=== PATIENT | male | born 1965 | race Caucasian/White ===

== ENCOUNTER 2022-11-15 15:24 | Inpatient (IN) ==
[2022-11-15] MEDS ORDERED: SODIUM CHLORIDE 0.9% 1000ML 2,000 ML IV ONE (15:42)
--- NOTE | 2022-11-15 16:03 | Emergency Department Note ---
History of Present Illness General Chief complaint: Fall Stated complaint: FALL, TACHYCARDIA Time Seen by Provider: 11/15/22 15:34 History of Present Illness Provider complaint: Fall Onset (ago): hour(s) 1 57-year-old male presents emergency department for fall. Patient states he went to a local [employer] outside of [place] and brought some food and then was going to get into his truck when he felt his legs give out. Patient states he fell and hit his head. Patient denies any LOC. No blood thinners. Patient does report that he drinks alcohol regularly. Patient states he binge drinks on the weekend and his last drink was on Friday. He denies any chest pain or difficulty breathing. Home Medications Medication Instructions Recorded Confirmed Type No Known Home Medications 11/15/22 11/15/22 History Allergies Allergy/AdvReac Type Severity Reaction Status Date / Time No Known Allergies Allergy Unverified 11/15/22 15:49 Past Med/Surg History Medical History (Updated 11/15/22 @ 22:26 by Dash Avelar MD) Alcohol abuse with withdrawal HTN (hypertension) Mood altered No pertinent family history No pertinent past medical history Seizure Surgical History (Updated 11/15/22 @ 16:02 by Dash Avelar MD) No pertinent past surgical history Social History (Updated 11/15/22 @ 16:02 by Dash Avelar MD) Smoking Status: Never smoker Hx Alcohol Use: Yes Alcohol Intake Frequency: 2-3 x/Week Alcohol Intake Frequency Comment: Binge Drinker on the weekends Feels Safe at Home: Yes Physical Exam Vital Signs Vital Signs - 24 hr 11/15/22 15:51 11/15/22 15:25 11/15/22 15:25 Temperature 37.1 C Temperature Source Oral Pulse Rate 140 H 135 H 135 H Pulse Rate [Right Finger] Pulse Rate from SpO2 Sensor Pulse Rhythm Regular Regular Pulse Rhythm [Right Finger] Pulse Strength Normal Pulse Strength [Right Finger] Respiratory Rate 19 19 Respiratory Effort / Characteristics Non-Labored Spontaneous Respiratory Depth Normal Respiratory Pattern Regular Blood Pressure 138/106 H Blood Pressure [Left Arm] Blood Pressure Mean 116 Blood Pressure Mean [Left Arm] Blood Pressure Position Lying Pulse Oximetry 99 99 Oxygen Delivery Method Room Air Room Air Sepsis Recent Fever Within 48 Hours No Sepsis New/Unexplained Change in Mental Status No Sepsis Action Taken by Nursing No Action Required 11/15/22 15:25 11/15/22 15:42 11/15/22 16:38 Temperature Temperature Source Pulse Rate Pulse Rate [Right Finger] 135 H 131 H Pulse Rate from SpO2 Sensor Pulse Rhythm Pulse Rhythm [Right Finger] Regular Pulse Strength Pulse Strength [Right Finger] Normal Respiratory Rate 19 18 Respiratory Effort / Characteristics Non-Labored Spontaneous Respiratory Depth Normal Respiratory Pattern Regular Blood Pressure Blood Pressure [Left Arm] 138/106 H 145/99 H Blood Pressure Mean Blood Pressure Mean [Left Arm] 116 114 Blood Pressure Position Pulse Oximetry 99 99 96 Oxygen Delivery Method Room Air Room Air Sepsis Recent Fever Within 48 Hours Sepsis New/Unexplained Change in Mental Status Sepsis Action Taken by Nursing 11/15/22 15:31 11/15/22 15:31 11/15/22 15:40 Temperature Temperature Source Pulse Rate 139 H 143 H Pulse Rate [Right Finger] Pulse Rate from SpO2 Sensor 142 H Pulse Rhythm Pulse Rhythm [Right Finger] Pulse Strength Pulse Strength [Right Finger] Respiratory Rate 23 20 Respiratory Effort / Characteristics Respiratory Depth Respiratory Pattern Blood Pressure 138/106 H Blood Pressure [Left Arm] Blood Pressure Mean 114 Blood Pressure Mean [Left Arm] Blood Pressure Position Pulse Oximetry 90 Oxygen Delivery Method Sepsis Recent Fever Within 48 Hours Sepsis New/Unexplained Change in Mental Status Sepsis Action Taken by Nursing 11/15/22 15:50 11/15/22 16:00 11/15/22 16:00 Temperature Temperature Source Pulse Rate 140 H 136 H Pulse Rate [Right Finger] Pulse Rate from SpO2 Sensor 141 H 136 H Pulse Rhythm Pulse Rhythm [Right Finger] Pulse Strength Pulse Strength [Right Finger] Respiratory Rate 24 22 Respiratory Effort / Characteristics Respiratory Depth Respiratory Pattern Blood Pressure 139/99 Blood Pressure [Left Arm] Blood Pressure Mean 113 Blood Pressure Mean [Left Arm] Blood Pressure Position Pulse Oximetry 98 98 Oxygen Delivery Method Sepsis Recent Fever Within 48 Hours Sepsis New/Unexplained Change in Mental Status Sepsis Action Taken by Nursing 11/15/22 16:38 11/15/22 16:40 11/15/22 16:50 Temperature Temperature Source Pulse Rate 129 H 149 H 123 H Pulse Rate [Right Finger] Pulse Rate from SpO2 Sensor 127 H 132 H Pulse Rhythm Pulse Rhythm [Right Finger] Pulse Strength Pulse Strength [Right Finger] Respiratory Rate 17 15 22 Respiratory Effort / Characteristics Respiratory Depth Respiratory Pattern Blood Pressure Blood Pressure [Left Arm] Blood Pressure Mean Blood Pressure Mean [Left Arm] Blood Pressure Position Pulse Oximetry 99 97 Oxygen Delivery Method Sepsis Recent Fever Within 48 Hours Sepsis New/Unexplained Change in Mental Status Sepsis Action Taken by Nursing 11/15/22 16:55 11/15/22 16:55 11/15/22 17:00 Temperature Temperature Source Pulse Rate 129 H Pulse Rate [Right Finger] Pulse Rate from SpO2 Sensor 128 H Pulse Rhythm Pulse Rhythm [Right Finger] Pulse Strength Pulse Strength [Right Finger] Respiratory Rate 18 Respiratory Effort / Characteristics Respiratory Depth Respiratory Pattern Blood Pressure 136/110 H 147/84 H Blood Pressure [Left Arm] Blood Pressure Mean 112 98 Blood Pressure Mean [Left Arm] Blood Pressure Position Pulse Oximetry 96 Oxygen Delivery Method Sepsis Recent Fever Within 48 Hours Sepsis New/Unexplained Change in Mental Status Sepsis Action Taken by Nursing 11/15/22 17:00 11/15/22 17:10 11/15/22 17:15 Temperature Temperature Source Pulse Rate 132 H 131 H Pulse Rate [Right Finger] Pulse Rate from SpO2 Sensor 126 H 134 H Pulse Rhythm Pulse Rhythm [Right Finger] Pulse Strength Pulse Strength [Right Finger] Respiratory Rate 20 25 H Respiratory Effort / Characteristics Respiratory Depth Respiratory Pattern Blood Pressure 130/98 Blood Pressure [Left Arm] Blood Pressure Mean 110 Blood Pressure Mean [Left Arm] Blood Pressure Position Pulse Oximetry 92 81 L Oxygen Delivery Method Sepsis Recent Fever Within 48 Hours Sepsis New/Unexplained Change in Mental Status Sepsis Action Taken by Nursing 11/15/22 17:15 11/15/22 17:20 11/15/22 17:30 Temperature Temperature Source Pulse Rate 132 H 133 H Pulse Rate [Right Finger] Pulse Rate from SpO2 Sensor 132 H 133 H Pulse Rhythm Pulse Rhythm [Right Finger] Pulse Strength Pulse Strength [Right Finger] Respiratory Rate 25 H 25 H Respiratory Effort / Characteristics Respiratory Depth Respiratory Pattern Blood Pressure 105/79 Blood Pressure [Left Arm] Blood Pressure Mean 81 Blood Pressure Mean [Left Arm] Blood Pressure Position Pulse Oximetry 94 93 Oxygen Delivery Method Sepsis Recent Fever Within 48 Hours Sepsis New/Unexplained Change in Mental Status Sepsis Action Taken by Nursing 11/15/22 17:30 Temperature Temperature Source Pulse Rate 128 H Pulse Rate [Right Finger] Pulse Rate from SpO2 Sensor 132 H Pulse Rhythm Pulse Rhythm [Right Finger] Pulse Strength Pulse Strength [Right Finger] Respiratory Rate 19 Respiratory Effort / Characteristics Respiratory Depth Respiratory Pattern Blood Pressure Blood Pressure [Left Arm] Blood Pressure Mean Blood Pressure Mean [Left Arm] Blood Pressure Position Pulse Oximetry 94 Oxygen Delivery Method Sepsis Recent Fever Within 48 Hours Sepsis New/Unexplained Change in Mental Status Sepsis Action Taken by Nursing Physical Exam GENERAL: Disheveled. NECK: Normal range of motion. Neck supple. No JVD present. No spinous process tenderness present. CV: Tachycardic rate, regular rhythm, normal heart sounds and intact distal pulses. There is no peripheral edema. Palpable radial pulses bue. PULM/CHEST: Effort normal and breath sounds normal. No respiratory distress. No stridor. He has no wheezes. He has no rales. - Chest Wall: He exhibits no tenderness. No crepitus bilaterally. ABD: The abdomen is soft. There is no tenderness. NEURO: He is alert and oriented to person, place, and time. He has normal strength. No cranial nerve deficit or sensory deficit. SKIN: Dirty. Multiple abrasions over his extremities. Course Course 1534: The patient was evaluated in room C8. A complete history and physical exam was performed Cardiac monitoring: An order was placed for continuous cardiac monitoring. The monitor shows a rate of 130 with sinus tachycardia rhythm interpreted by me 1652: Called to bedside by nursing. Patient was having seizure. On my arrival the patient was seizing Ativan was ordered for the patient but before the Ativan was drawn off the patient started seizing. Ativan was still given to the patient as it is thought that his seizure is most likely due to alcohol wit hdrawal. CT of the head reviewed by me showed no ICH. 1730: No further seizures in the emergency department. Labs show leukocytosis of 13.87. Thought to be reactive. Patient's sodium 125. Potassium 3.4. Ammonia 94. AST 381. ALT 105. Alkaline phosphatase 135. High-sensitivity troponin 72.2. Direct bilirubin 0.6. CT of the head C-spine and facial bones show no acute traumatic injuries. Chest x-ray pelvis x-ray negative. Discussed case with [facility] hospitalist team Dr. Burch she recommends loading the patient with Keppra 1 g IV piggyback and she will evaluate the patient for adm ission for alcohol withdrawal and DTs. Administered Medications Discontinued Medications Gadobutrol (Gadobutrol 65ml Vial) 7 ml IV ONCE ONE Stop: 11/15/22 21:55 Last Admin: 11/15/22 21:55 Dose: 7 ml Documented By: ARMEN Sodium Chloride (Nss 1000ml) 2,000 mls @ 999 mls/hr IV .Q2H1M ONE Stop: 11/15/22 17:42 Last Infusion: 11/15/22 19:44 Dose: 0 mls/hr Documented By: Admin: 11/15/22 15:57 Dose: 999 mls/hr Documented By: LUPE Thiamine HCl 100 mg/ Folic (Acid 1 mg/ Sodium Chloride) 1,001.2 mls @ 500 mls/hr IV .Q2H1M STA; Protocol Stop: 11/15/22 18:45 Last Infusion: 11/15/22 19:44 Dose: 0 mls/hr Documented By: Admin: 11/15/22 17:29 Dose: 500 mls/hr Documented By: LUPE Levetiracetam 1,000 mg/ Sodium (Chloride) 110 mls @ 440 mls/hr IV NOW STA Stop: 11/15/22 17:42 Last Infusion: 11/15/22 19:44 Dose: 0 mls/hr Documented By: Admin: 11/15/22 18:33 Dose: 440 mls/hr Documented By: LUPE Lactulose (Lactulose Syrup 30 Gm/45 Ml Udp) 30 gm PO NOW STA Stop: 11/15/22 17:17 Last Admin: 11/15/22 20:03 Dose: 30 gm Documented By: MATTHIAS Lorazepam (Lorazepam 2 Mg/1 Ml Vial) 2 mg IV NOW STA Stop: 11/15/22 16:44 Last Admin: 11/15/22 16:59 Dose: Not Given Documented By: SPIKE Lorazepam (Lorazepam 2 Mg/1 Ml Vial) Confirm Administered Dose 2 mg .ROUTE .STK- MED ONE Stop: 11/15/22 16:45 Last Admin: 11/15/22 16:56 Dose: Not Given Documented By: SPIKE Lorazepam (Lorazepam 2 Mg/1 Ml Vial) 1 mg IV NOW STA Stop: 11/15/22 17:02 Last Admin: 11/15/22 16:47 Dose: 1 mg Documented By: SPIKE Multivitamins/Minerals (Cerovite Adv Formula Tab) 1 tab PO ONE STA Stop: 11/15/22 19:58 Last Admin: 11/15/22 20:03 Dose: 1 tab Documented By: MATTHIAS Critical Care Time Critical Care Time: Yes Total Critical Care Time: 52 I have personally spent greater than 52 minutes of critical care time in the direct management of this patient. This includes bedside care, interpretation of diagnostic studies, and testing, discussion with consultants, patient, and family members, and other required patient management activities. This 52 minutes is in excess of all separately billable procedures. Medical Decision Making Laboratory Data Attestation: I reviewed the patient's lab results. 11/15/22 15:57 11/15/22 15:57 Lab Results 11/15/22 11/15/22 11/15/22 Range/Units 15:57 15:57 15:57 WBC 13.87 H (4.8-10.8) K/ul RBC 4.40 L (4.70-6.10) M/uL Hgb 14.9 (14.0-18.0) g/dl POC Hgb (14.0-18.0) g/dl Hct 40.6 L (42.0-52.0) % POC Hct (42-52) % MCV 92.3 (80.0-100.0) fL MCH 33.9 (25.0-34.0) pg MCHC 36.7 H (32.0-36.0) g/dL RDW Std Deviation 42.1 (36.4-46.3) fL RDW Coeff of Mallory 12.3 (11.5-14.5) % Plt Count 168 (130-400) K/uL MPV 9.4 (9.4-12.4) fL Immature Gran % (Auto) 0.6 % Neut % (Auto) 84.8 % Lymph % (Auto) 4.5 % [place] % (Auto) 9.8 % Eos % (Auto) 0.1 % Baso % (Auto) 0.2 % Neut # (Auto) 11.75 H (1.40-6.50) K/uL Lymph # (Auto) 0.63 L (1.2-3.4) K/uL [place] # (Auto) 1.36 H (0.11-0.59) K/uL Eos # (Auto) 0.02 (0-0.50) K/uL Baso # (Auto) 0.03 (0-0.2) K/uL Immature Gran # (Auto) 0.08 (0.01-0.20) K/uL PT INR APTT PTT Ratio POC Sodium (135-144) mmol/L Sodium 125 L (136-145) mmol/L POC Potassium (3.3-5.0) mmol/L Potassium TNP POC Chloride (101-112) mmol/L Chloride 86 L (98-107) mmol/L Carbon Dioxide 22 (21-32) mmol/L POC Total CO2 (24-31) mmol/L Anion Gap 17 H (3-11) POC Anion Gap (16-25) mmol/L POC BUN (7-18) mg/dl BUN 10 (6-23) mg/dl Creatinine 0.98 (0.6-1.4) mg/dl POC Creatinine (0.6-1.3) mg/dl Est Cr Clr Drug Dosing 86.7 ml/min Est GFR ( Amer) 100.2 ml/min Est GFR (Non-Af Amer) 86.4 ml/min BUN/Creatinine Ratio 10.2 (10-20) Glucose 93 (70-99(Fasting)) mg/dl POC Glucose (other) (70-99) mg/dl Osmolality (280-300) mOsm/kg Calcium 8.6 (8.6-10.3) mg/dl POC Ioniz Calcium Kita (1.12-1.32) mmol/l Total Bilirubin 2.2 H (0.2-1.0) mg/dl Direct Bilirubin TNP AST TNP ALT 105 H (7-52) U/L Alkaline Phosphatase 135 H (34-104) U/L Ammonia TNP Troponin I High Sens 72.2 H* (0-20) pg/ml Total Protein 6.9 (6.0-8.3) gm/dl Albumin 3.7 (3.4-5.0) gm/dl Lipase 6 L (11-82) U/L Ethyl Alcohol mg/dL (<10.0) mg/dl SARS-CoV-2, RNA, NAAT (NEGATIVE) 11/15/22 11/15/22 11/15/22 Range/Units 15:57 15:57 15:59 WBC (4.8-10.8) K/ul RBC (4.70-6.10) M/uL Hgb (14.0-18.0) g/dl POC Hgb (14.0-18.0) g/dl Hct (42.0-52.0) % POC Hct (42-52) % MCV (80.0-100.0) fL MCH (25.0-34.0) pg MCHC (32.0-36.0) g/dL RDW Std Deviation (36.4-46.3) fL RDW Coeff of Mallory (11.5-14.5) % Plt Count (130-400) K/uL MPV (9.4-12.4) fL Immature Gran % (Auto) % Neut % (Auto) % Lymph % (Auto) % [place] % (Auto) % Eos % (Auto) % Baso % (Auto) % Neut # (Auto) (1.40-6.50) K/uL Lymph # (Auto) (1.2-3.4) K/uL [place] # (Auto) (0.11-0.59) K/uL Eos # (Auto) (0-0.50) K/uL Baso # (Auto) (0-0.2) K/uL Immature Gran # (Auto) (0.01-0.20) K/uL PT Cancelled INR Cancelled APTT Cancelled PTT Ratio Cancelled POC Sodium (135-144) mmol/L Sodium (136-145) mmol/L POC Potassium (3.3-5.0) mmol/L Potassium POC Chloride (101-112) mmol/L Chloride (98-107) mmol/L Carbon Dioxide (21-32) mmol/L POC Total CO2 (24-31) mmol/L Anion Gap (3-11) POC Anion Gap (16-25) mmol/L POC BUN (7-18) mg/dl BUN (6-23) mg/dl Creatinine (0.6-1.4) mg/dl POC Creatinine (0.6-1.3) mg/dl Est Cr Clr Drug Dosing ml/min Est GFR ( Amer) ml/min Est GFR (Non-Af Amer) ml/min BUN/Creatinine Ratio (10-20) Glucose (70-99(Fasting)) mg/dl POC Glucose (other) (70-99) mg/dl Osmolality 270 L (280-300) mOsm/kg Calcium (8.6-10.3) mg/dl POC Ioniz Calcium Kita (1.12-1.32) mmol/l Total Bilirubin (0.2-1.0) mg/dl Direct Bilirubin AST ALT (7-52) U/L Alkaline Phosphatase (34-104) U/L Ammonia Troponin I High Sens (0-20) pg/ml Total Protein (6.0-8.3) gm/dl Albumin (3.4-5.0) gm/dl Lipase (11-82) U/L Ethyl Alcohol mg/dL < 10.0 (<10.0) mg/dl SARS-CoV-2, RNA, NAAT (NEGATIVE) 11/15/22 11/15/22 11/15/22 Range/Units 16:51 16:51 16:58 WBC (4.8-10.8) K/ul RBC (4.70-6.10) M/uL Hgb (14.0-18.0) g/dl POC Hgb 15.0 (14.0-18.0) g/dl Hct (42.0-52.0) % POC Hct 44 (42-52) % MCV (80.0-100.0) fL MCH (25.0-34.0) pg MCHC (32.0-36.0) g/dL RDW Std Deviation (36.4-46.3) fL RDW Coeff of Mallory (11.5-14.5) % Plt Count (130-400) K/uL MPV (9.4-12.4) fL Immature Gran % (Auto) % Neut % (Auto) % Lymph % (Auto) % [place] % (Auto) % Eos % (Auto) % Baso % (Auto) % Neut # (Auto) (1.40-6.50) K/uL Lymph # (Auto) (1.2-3.4) K/uL [place] # (Auto) (0.11-0.59) K/uL Eos # (Auto) (0-0.50) K/uL Baso # (Auto) (0-0.2) K/uL Immature Gran # (Auto) (0.01-0.20) K/uL PT INR APTT PTT Ratio POC Sodium 125 L (135-144) mmol/L Sodium (136-145) mmol/L POC Potassium 3.3 (3.3-5.0) mmol/L Potassium 3.4 L POC Chloride 89 L (101-112) mmol/L Chloride (98-107) mmol/L Carbon Dioxide (21-32) mmol/L POC Total CO2 19 L (24-31) mmol/L Anion Gap (3-11) POC Anion Gap 21.0 (16-25) mmol/L POC BUN 7 (7-18) mg/dl BUN (6-23) mg/dl Creatinine (0.6-1.4) mg/dl POC Creatinine 0.7 (0.6-1.3) mg/dl Est Cr Clr Drug Dosing ml/min Est GFR ( Amer) ml/min Est GFR (Non-Af Amer) ml/min BUN/Creatinine Ratio (10-20) Glucose (70-99(Fasting)) mg/dl POC Glucose (other) 94 (70-99) mg/dl Osmolality (280-300) mOsm/kg Calcium (8.6-10.3) mg/dl POC Ioniz Calcium Kita 0.96 L (1.12-1.32) mmol/l Total Bilirubin (0.2-1.0) mg/dl Direct Bilirubin 0.6 H AST 381 H ALT (7-52) U/L Alkaline Phosphatase (34-104) U/L Ammonia 94.0 H Troponin I High Sens (0-20) pg/ml Total Protein (6.0-8.3) gm/dl Albumin (3.4-5.0) gm/dl Lipase (11-82) U/L Ethyl Alcohol mg/dL (<10.0) mg/dl SARS-CoV-2, RNA, NAAT (NEGATIVE) 11/15/22 Range/Units 17:35 WBC (4.8-10.8) K/ul RBC (4.70-6.10) M/uL Hgb (14.0-18.0) g/dl POC Hgb (14.0-18.0) g/dl Hct (42.0-52.0) % POC Hct (42-52) % MCV (80.0-100.0) fL MCH (25.0-34.0) pg MCHC (32.0-36.0) g/dL RDW Std Deviation (36.4-46.3) fL RDW Coeff of Mallory (11.5-14.5) % Plt Count (130-400) K/uL MPV (9.4-12.4) fL Immature Gran % (Auto) % Neut % (Auto) % Lymph % (Auto) % [place] % (Auto) % Eos % (Auto) % Baso % (Auto) % Neut # (Auto) (1.40-6.50) K/uL Lymph # (Auto) (1.2-3.4) K/uL [place] # (Auto) (0.11-0.59) K/uL Eos # (Auto) (0-0.50) K/uL Baso # (Auto) (0-0.2) K/uL Immature Gran # (Auto) (0.01-0.20) K/uL PT INR APTT PTT Ratio POC Sodium (135-144) mmol/L Sodium (136-145) mmol/L POC Potassium (3.3-5.0) mmol/L Potassium POC Chloride (101-112) mmol/L Chloride (98-107) mmol/L Carbon Dioxide (21-32) mmol/L POC Total CO2 (24-31) mmol/L Anion Gap (3-11) POC Anion Gap (16-25) mmol/L POC BUN (7-18) mg/dl BUN (6-23) mg/dl Creatinine (0.6-1.4) mg/dl POC Creatinine (0.6-1.3) mg/dl Est Cr Clr Drug Dosing ml/min Est GFR ( Amer) ml/min Est GFR (Non-Af Amer) ml/min BUN/Creatinine Ratio (10-20) Glucose (70-99(Fasting)) mg/dl POC Glucose (other) (70-99) mg/dl Osmolality (280-300) mOsm/kg Calcium (8.6-10.3) mg/dl POC Ioniz Calcium Kita (1.12-1.32) mmol/l Total Bilirubin (0.2-1.0) mg/dl Direct Bilirubin AST ALT (7-52) U/L Alkaline Phosphatase (34-104) U/L Ammonia Troponin I High Sens (0-20) pg/ml Total Protein (6.0-8.3) gm/dl Albumin (3.4-5.0) gm/dl Lipase (11-82) U/L Ethyl Alcohol mg/dL (<10.0) mg/dl SARS-CoV-2, RNA, NAAT NEGATIVE (NEGATIVE) Imaging Data Attestation: I personally reviewed and interpreted this imaging study as follows: My Impression: CT head: No ICH Radiologist's Impression: Head CT 11/15/22 15:42 CT OF THE HEAD WITHOUT CONTRAST CLINICAL HISTORY: Fall. COMPARISON STUDY: No previous studies for comparison. TECHNIQUE: Helical axial images of the head were obtained without IV contrast. Automated exposure control was utilized for the study. A dose lowering technique was utilized adhering to the principles of ALARA. FINDINGS: No acute intracranial hemorrhage, midline shift or mass effect is present. White matter hypodensities favor small vessel disease. The ventricular system is unremarkable. The basal cisterns are patent. No extra-axial collections are present. There are no findings to suggest acute dural sinus thrombosis or acute territorial infarct. There is no acute calvarial fracture. Trace fluid within the bilateral mastoid air cells. IMPRESSION: 1. No acute intracranial findings. 2. No acute calvarial fracture. ACT 112: Negative or not required by law. Electronically signed by: Norman Harris M.D. 11/15/2022 4:[address] 11/15/22 15:43 CT OF THE CERVICAL SPINE WITHOUT CONTRAST CLINICAL HISTORY: fall COMPARISON STUDY: No previous studies for comparison. TECHNIQUE: Helical axial images of the cervical spine were obtained without IV contrast. Sagittal and coronal reconstructions were viewed. Automated exposure control was utilized for the study. A dose lowering technique was utilized adhering to the principles of ALARA. FINDINGS: There is reversal of the cervical lordosis. Vertebral body heights are maintained. No acute cervical spine fracture or subluxation is present. There is no prevertebral edema. Facet joints are intact. Moderate multilevel degenerative disc disease and facet arthrosis is present. There is mild loss of height of the superior endplate of T1. No definite acute fracture is present. There is no paravertebral infiltration/edema. IMPRESSION: 1. No acute cervical spine fracture or subluxation. 2. Mild loss of height of the superior plate of T1. Although technically age indeterminate, this is likely chronic. ACT 112: Negative or not required by law. Electronically signed by: Norman Harris M.D. 11/15/2022 4:56 PM Chest X-Ray 11/15/22 15:43 XR chest 1V portable CLINICAL HISTORY: Fall. COMPARISON STUDY: No previous studies for comparison. FINDINGS: Lung volumes are normal. Lungs are clear. There is no pneumothorax or pleural effusion. Cardiac size is normal. Mediastinal contours are normal. There is no evidence for pulmonary edema. There are numerous old right rib fractures. There are several old left rib fractures. IMPRESSION: No acute cardiopulmonary findings. ACT 112: Negative or not required by law. Electronically signed by: Norman Harris M.D. 11/15/2022 4:[address] 11/15/22 15:[address] WITHOUT CONTRAST CLINICAL HISTORY: Fall. COMPARISON STUDY: None. TECHNIQUE: A maxillofacial CT was performed without IV contrast. Coronal and sagittal reformats were viewed. Automated exposure control was utilized for the study. A dose lowering technique was utilized adhering to the principles of ALARA. FINDINGS: Globes are intact. There is no retrobulbar hematoma. No acute facial bone fracture is identified. Orbital floors are intact. Alignment of the temporomandibular joints is anatomic. There are multiple periapical lucency/abscesses. No acute skull base fracture is present. Cervical spine CT will be reported separately IMPRESSION: No acute facial fracture. ACT 112: Negative or not required by law. Electronically signed by: Norman Harris M.D. 11/15/2022 4:50 PM Pelvis X-Ray 11/15/22 15:43 XR pelvis 1-2V routine CLINICAL HISTORY: Fall. COMPARISON: None FINDINGS: Sacroiliac joints and symphysis pubis are intact. No acute fracture is identified within the pelvis or hips. There is mild bilateral hip osteoarth ritis. IMPRESSION: No acute fracture within the pelvis or hips. ACT 112: Negative or not required by law. Electronically signed by: Norman Harris M.D. 11/15/2022 4:35 PM ECG Data Attestation: I personally reviewed and interpreted this ECG as follows: Indication: + tachycardia Rate (beats per minute): 130 Rhythm: + sinus tachycardia ECG Intervals/blocks: + Normal WA and + Normal QT-c ECG ST segments: + Normal ST segments Additional Comments: QRS 76 MDM Narrative 1534: The patient was evaluated in room C8. A complete history and physical exam was performed Cardiac monitoring: An order was placed for continuous cardiac monitoring. The monitor shows a rate of 130 with sinus tachycardia rhythm interpreted by me 1652: Called to bedside by nursing. Patient was having seizure. On my arrival the patient was seizing Ativan was ordered for the patient but before the Ativan was drawn off the patient started seizing. Ativan was still given to the patient as it is thought that his seizure is most likely due to alcohol withdrawal. CT of the head reviewed by me showed no ICH. 1730: No further seizures in the emergency department. Labs show leukocytosis of 13.87. Thought to be reactive. Patient's sodium 125. Potassium 3.4. Ammonia 94. AST 381. ALT 105. Alkaline phosphatase 135. High-sensitivity troponin 72.2. Direct bilirubin 0.6. CT of the head C-spine and facial bones show no acute traumatic injuries. Chest x-ray pelvis x-ray negative. Discussed case with [facility] hospitalist team Dr. Burch she recommends loading the patient with Keppra 1 g IV piggyback and she will evaluate the patient for admission for alcohol withdrawal and DTs. Impression & Plan Alcohol abuse with withdrawal, Seizure, Acute hyponatremia, Acute hepatic encephalopathy, Elevated troponin Discharge Plan Visit Data Chief Complaint: Fall Stated Complaint: FALL, TACHYCARDIA ED Provider: Dash Avelar Discharge Problem: Alcohol abuse with withdrawal, Seizure, Acute hyponatremia, Acute hepatic encephalopathy, Elevated troponin Patient Disposition: Admitted As Inpatient Discharge Instructions Interventions: ED Discharge Assessment Last Done: 11/15/22 20:52
[2022-11-15 16:20] LABS: Basophils # (auto) 0.03 K/uL (0-0.2); Basophils % (auto) 0.2 %; Eosinophils # (auto) 0.02 K/uL (0-0.50); Eosinophils % (auto) 0.1 %; Hematocrit (blood only) 40.6 % (42.0-52.0); Hemoglobin 14.9 g/dl (14.0-18.0); Immature Granulocytes # (auto) 0.08 K/uL (0.01-0.20); Immature Granulocytes % (auto) 0.6 %; Lymphocytes # (auto) 0.63 K/uL (1.2-3.4); Lymphocytes % (auto) 4.5 %; Mean Corpuscular Hemoglobin 33.9 pg (25.0-34.0); Mean Corpuscular Hgb Conc 36.7 g/dL (32.0-36.0); Mean Corpuscular Volume 92.3 fL (80.0-100.0); Mean Platelet Volume 9.4 fL (9.4-12.4); Monocytes # (auto) 1.36 K/uL (0.11-0.59); Monocytes % (auto) 9.8 %; Neutrophils # (auto) 11.75 K/uL (1.40-6.50); Neutrophils % (auto) 84.8 %; Platelet Count 168 K/uL (130-400); RDW Coefficient of Variation 12.3 % (11.5-14.5); RDW Standard Deviation 42.1 fL (36.4-46.3); White Blood Count 13.87 K/ul (4.8-10.8)
[2022-11-15 16:33] LABS: Albumin Level 3.7 gm/dl (3.4-5.0); Anion Gap 17 (3-11); Bilirubin,Total 2.2 mg/dl (0.2-1.0); Calcium 8.6 mg/dl (8.6-10.3); Carbon Dioxide 22 mmol/L (21-32); Chloride 86 mmol/L (98-107); Sodium 125 mmol/L (136-145)
[2022-11-15 16:36] LABS: Alanine Aminotransferase 105 U/L (7-52); Alkaline Phosphatase 135 U/L (34-104); BUN Creatinine Ratio 10.2 (10-20); Blood Urea Nitrogen 10 mg/dl (6-23); Creatinine Clr Calc Pharmacy 86.7 ml/min; Est GFR (African American) 100.2 ml/min; Est GFR (Non-African American) 86.4 ml/min; Glucose 93 mg/dl (70-99(Fasting)); Lipase 6 U/L (11-82); Total Protein 6.9 gm/dl (6.0-8.3)
--- NOTE | 2022-11-15 16:37 | XRay Report ---
XR pelvis 1-2V routine CLINICAL HISTORY: Fall. COMPARISON: None FINDINGS: Sacroiliac joints and symphysis pubis are intact. No acute fracture is identified within t he pelvis or hips. There is mild bilateral hip osteoarthritis. IMPRESSION: No acute fracture within the pelvis or hips. ACT 112: Negative or not required by law. Electronically signed by: Norman Harris M.D. 11/15/2022 4:35 PM
[2022-11-15 16:42] LABS: Troponin I High Sensitivity 72.2 pg/ml (0-20)
[2022-11-15] MEDS ORDERED: LORazepam 2 MG/1 ML VIAL IV STA ×2 (16:43→17:01)
[2022-11-15] MEDS ORDERED: LORazepam 2 MG/1 ML VIAL ONE (16:44)
[2022-11-15] MEDS ORDERED: CEROVITE ADV FORMULA TAB PO STA ×2 (16:45→19:57)
[2022-11-15] MEDS ORDERED: THIAMINE HCL 100 MG, FOLIC ACID 1 MG in SODIUM CHLORIDE 0.9% 1000ML 1,000 ML IV STA (16:45)
--- NOTE | 2022-11-15 16:47 | CT Scan Report ---
CT OF THE HEAD WITHOUT CONTRAST CLINICAL HISTORY: Fall. COMPARISON STUDY: No previous studies for comparison. TECHNIQUE: Helical axial images of the head were obtained without IV contrast. Automated exposure con trol was utilized for the study. A dose lowering technique was utilized adhering to the principles o f ALARA. FINDINGS: No acute intracranial hemorrhage, midline shift or mass effect is present. White matter hyp odensities favor small vessel disease. The ventricular system is unremarkable. The basal cisterns are patent. No extra-axial collections are present. There are no findings to suggest acute dural sinus t hrombosis or acute territorial infarct. There is no acute calvarial fracture. Trace fluid within the bilateral mastoid air cells. IMPRESSION: 1. No acute intracranial findings. 2. No acute calvarial fracture. ACT 112: Negative or not required by law. Electronically signed by: Norman Harris M.D. 11/15/2022 4:46 PM
--- NOTE | 2022-11-15 16:48 | XRay Report ---
XR chest 1V portable CLINICAL HISTORY: Fall. COMPARISON STUDY: No previous studies for comparison. FINDINGS: Lung volumes are normal. Lungs are clear. There is no pneumothorax or pleural effusion. Car diac size is normal. Mediastinal contours are normal. There is no evidence for pulmonary edema. There are numerous old right rib fractures. There are several old left rib fractures. IMPRESSION: No acute cardiopulmonary findings. ACT 112: Negative or not required by law. Electronically signed by: Norman Harris M.D. 11/15/2022 4:47 PM
--- NOTE | 2022-11-15 16:52 | CT Scan Report ---
MAXILLOFACIAL CT WITHOUT CONTRAST CLINICAL HISTORY: Fall. COMPARISON STUDY: None. TECHNIQUE: A maxillofacial CT was performed without IV contrast. Coronal and sagittal reformats were viewed. Automated exposure control was utilized for the study. A dose lowering technique was utiliz ed adhering to the principles of ALARA. FINDINGS: Globes are intact. There is no retrobulbar hematoma. No acute facial bone fracture is ident ified. Orbital floors are intact. Alignment of the temporomandibular joints is anatomic. There are mu ltiple periapical lucency/abscesses. No acute skull base fracture is present. Cervical spine CT will be reported separately IMPRESSION: No acute facial fracture. ACT 112: Negative or not required by law. Electronically signed by: Norman Harris M.D. 11/15/2022 4:50 PM
--- NOTE | 2022-11-15 16:58 | CT Scan Report ---
CT OF THE CERVICAL SPINE WITHOUT CONTRAST CLINICAL HISTORY: fall COMPARISON STUDY: No previous studies for comparison. TECHNIQUE: Helical axial images of the cervical spine were obtained without IV contrast. Sagittal a nd coronal reconstructions were viewed. Automated exposure control was utilized for the study. A do se lowering technique was utilized adhering to the principles of ALARA. FINDINGS: There is reversal of the cervical lordosis. Vertebral body heights are maintained. No acute cervical spine fracture or subluxation is present. There is no prevertebral edema. Facet joints are intact. Moderate multilevel degenerative disc disease and facet arthrosis is present. There is mild loss of height of the superior endplate of T1. No definite acute fracture is present. There is no par avertebral infiltration/edema. IMPRESSION: 1. No acute cervical spine fracture or subluxation. 2. Mild loss of height of the superior plate of T1. Although technically age indeterminate, this is l ikely chronic. ACT 112: Negative or not required by law. Electronically signed by: Norman Harris M.D. 11/15/2022 4:56 PM
[2022-11-15 17:11] LABS: iSTAT Creatinine 0.7 mg/dl (0.6-1.3); iSTAT Ionized Calcium 0.96 mmol/l (1.12-1.32); iSTAT Potassium 3.3 mmol/L (3.3-5.0)
[2022-11-15] MEDS ORDERED: LACTULOSE SYRUP 30 GM/45 ML UDP PO STA (17:16)
[2022-11-15 17:28] LABS: Bilirubin Direct 0.6 mg/dl (0-0.2); Potassium 3.4 mmol/L (3.5-5.1)
[2022-11-15] MEDS ORDERED: levETIRAcetam 1,000 MG in 0.9 % SODIUM CHLORIDE 100 ML IV STA (17:28)
[2022-11-15] MEDS ORDERED: ONDANSETRON INJ 2 MG/ML 2 ML VIAL IV PRN (17:38)
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
[2022-11-15 19:01] LABS: Appearance Urine Cloudy (Clear); Bacteria Urine Automated Negative (Negative); Bilirubin Urine Negative (Negative); Blood Urine 3+ (Negative); Color Urine Orange; Epithelial Cell Urine Auto >30 /lpf (0-5); Glucose Urine UA Negative (Negative); Ketones Urine Trace (Negative); Leukocyte Esterase Urine Negative (Negative); Nitrite Urine Negative (Negative); Protein Urine 2+ (Negative); Specific Gravity Urine 1.018 (1.000-1.030); Urobilinogen Urine Negative (Negative); pH Urine 6.5 (4.5-7.5)
[2022-11-15 19:25] LABS: Amorphous Sediment Urine Present (None Prsent); Amphetamines+Metham, Urine Neg (Neg); Barbiturates, Urine Neg (Neg); Benzodiazepine, Urine Neg (Neg); Cocaine, Urine Neg (Neg); MDMA (Ecstacy), Urine Neg (Neg); Methadone, Urine Neg (Neg); Mucus Urine Present (None Prsent); Opiate, Urine Neg (Neg); Phencyclidine, Urine Neg (Neg)
[2022-11-15 19:26] LABS: Creatinine Urine Random 87.5 mg/dl
[2022-11-15 20:03] LABS: INR 1.2 (0.9-1.1); Partial Thromboplastin Ratio 1.1; Prothrombin Time 12.9 Seconds (9.0-12.0)
[2022-11-15] MEDS ORDERED: POTASSIUM CHLORIDE CRTAB 20 MEQ TABCR PO STA (20:39)
[2022-11-15 21:16] LABS: BUN Creatinine Ratio 11.8 (10-20); Calcium 7.8 mg/dl (8.6-10.3); Creatinine Clr Calc Pharmacy 111.8 ml/min; Est GFR (Non-African American) 102.7 ml/min; Magnesium 1.5 mg/dl (1.7-2.4); Phosphorus 3.1 mg/dl (2.5-4.9); Potassium 3.7 mmol/L (3.5-5.1)
[2022-11-15] MEDS ORDERED: GADOBUTROL 65ML VIAL IV ONE (21:54)
--- NOTE | 2022-11-15 23:40 | Magnetic Resonance Report ---
Exam(s): MRI HEAD W/WO Contrast IV Amt: 7mL Gadavist EXAM: MR Head Without and With Intravenous Contrast CLINICAL HISTORY: Seizures. TECHNIQUE: Magnetic resonance images of the head/brain without and with intravenous contrast in multiple planes. CONTRAST: Patient received 7mL Gadavist of IV contrast COMPARISON: CT head 11/15/2022 FINDINGS: Brain: No acute infarct. No intracranial hemorrhage, mass-effect or midline shift. Mild periventricular white matter T2/flair signal abnormalities are most consistent with chronic microangiopathy. No abnormal enhancement. Ventricles: Unremarkable. No ventriculomegaly. Bones/joints: Unremarkable. Sinuses: Unremarkable as visualized. No acute sinusitis. Mastoid air cells: Unremarkable as visualized. No mastoid effusion. Orbits: Unremarkable as visualized. IMPRESSION: No acute findings in the head/brain. Electronically signed by: Belen Pat MD 11/15/22 23:39 PM
[2022-11-15] MEDS ORDERED: GABAPENTIN 600 MG TAB PO ONE (23:46)
[2022-11-15] MEDS ORDERED: Ativan IV Alcohol Withdrawal--Active Protocol IV PRN (23:46)
[2022-11-15] MEDS ORDERED: LORazepam 2 MG/1 ML VIAL IV PRN (23:46)
[2022-11-15] MEDS ORDERED: GABAPENTIN 1200MG ALCOHOL WITHDRAWAL LOAD PO STA (23:46)
[2022-11-15] MEDS: SODIUM CHLORIDE 0.9% 1000ML 1,000 ML IV SCH (23:49)
[2022-11-16] MEDS: MAGNESIUM SULFATE / D5W 1 GM/100 ML BAG IV SCH ×2 (00:03→02:19)
[2022-11-16] MEDS: CYANOCOBALAMIN 1000 MCG/ML VIAL IM SCH (00:30)
[2022-11-16] MEDS: NICOTINE 21 MG/24 HR TDSY TD SCH (00:49)
[2022-11-16] MEDS ORDERED: Ativan IV Alcohol Withdrawal--Active Protocol IV PRN (01:02)
[2022-11-16] MEDS ORDERED: LORazepam 2 MG/1 ML VIAL IV PRN ×3 (01:02)
[2022-11-16] MEDS: POTASSIUM CHLORIDE / WTR 10 MEQ/100 ML PLCT IV SCH ×3 (02:19→05:00)
[2022-11-16 04:37] LABS: Hematocrit (blood only) 34.2 % (42.0-52.0); Hemoglobin 12.7 g/dl (14.0-18.0); Mean Corpuscular Hemoglobin 34.6 pg (25.0-34.0); Mean Corpuscular Hgb Conc 37.1 g/dL (32.0-36.0); Mean Corpuscular Volume 93.2 fL (80.0-100.0); Mean Platelet Volume 9.7 fL (9.4-12.4); Platelet Count 119 K/uL (130-400); RDW Coefficient of Variation 12.5 % (11.5-14.5); Red Blood Count 3.67 M/uL (4.70-6.10); White Blood Count 8.84 K/ul (4.8-10.8)
[2022-11-16 04:43] LABS: Albumin Globulin Ratio 1.1 (0.9-2); Albumin Level 2.9 gm/dl (3.4-5.0); BUN Creatinine Ratio 9.6 (10-20); Bilirubin,Total 1.6 mg/dl (0.2-1.0); Calcium 7.6 mg/dl (8.6-10.3); Creatinine Clr Calc Pharmacy 97.6 ml/min; Est GFR (African American) 114.8 ml/min; Est GFR (Non-African American) 99.1 ml/min; Globulin 2.6 gm/dl (2.5-4.0); Magnesium 2.3 mg/dl (1.7-2.4); Phosphorus 3.8 mg/dl (2.5-4.9); Potassium 3.3 mmol/L (3.5-5.1); Total Protein 5.5 gm/dl (6.0-8.3)
[2022-11-16] MEDS: levETIRAcetam 1,000 MG in 0.9 % SODIUM CHLORIDE 100 ML IV SCH ×2 (06:53→18:11)
[2022-11-16] MEDS: GABAPENTIN 600 MG TAB PO SCH ×3 (06:54→20:05)
--- NOTE | 2022-11-16 07:59 | Ultrasound Report ---
ULTRASOUND RIGHT UPPER QUADRANT ABDOMEN CLINICAL HISTORY: Elevated hepatic transaminases. COMPARISON STUDY: No priors. TECHNIQUE: Portable real-time grayscale and color flow sonography of the right upper quadrant of the abdomen was performed. Images are reviewed in the transverse and longitudinal planes. FINDINGS: Liver: The liver is top normal in size and demonstrates heterogeneously increased echotexture indicat ing steatosis. There is no intrahepatic biliary ductal dilatation. The main portal vein is patent. Gallbladder: There are shadowing gallstones and biliary sludge. The gallbladder is otherwise normal a s imaged. There is no gallbladder wall thickening or pericholecystic fluid. A sonographic Emmanuel's si gn is reportedly absent. The common bile duct measures up to 0.6 cm in diameter. Pancreas: Not visualized due to overlying bowel gas. Right kidney: Survey images of the right kidney demonstrate normal size and echotexture. There is no hydronephrosis. Ascites: None. IMPRESSION: 1. Hepatic steatosis. 2. Gallstones and biliary sludge with no sonographic evidence of acute cholecystitis. ACT 112: Negative or not required by law. Electronically signed by: Tyler Dover M.D. 11/16/2022 7:57 AM
[2022-11-16] MEDS ORDERED: POTASSIUM CHLORIDE CRTAB 20 MEQ TABCR PO STA (09:14)
[2022-11-16] MEDS: SODIUM CHLORIDE 0.9% 1000ML 1,000 ML IV SCH (09:30)
[2022-11-16] MEDS: THIAMINE HCL 100 MG TAB PO SCH (09:31)
[2022-11-16] MEDS: FOLIC ACID 1 MG TAB PO SCH (09:31)
--- NOTE | 2022-11-16 09:47 | Hospitalist Progress Note ---
Date of Service November 16, 2022 Assessment & Plan (1) Alcohol abuse with withdrawal: (2) Seizure: (3) HTN (hypertension): (4) Mood altered: Plan 57 year old admitted in alcohol withdrawal, with syncopal/seizure episodes and concerning anisocoria. Delirium Tremens: Alcohol Abuse: Hyponatremia AWSS protocol Banana bag Hyponatremia possibly due to "beer potomania"- osmolality suggests a hypotonic hyponatremia, euvolemic. SIADH also on differential, TSH pending UDS- normal Continue with fluid restriction at this time. Consider nephrology referral if hyponatremia persistent. Ammonia level currently normal Addiction Medicine assistance to help with discontinuing alcohol use recommended upon discharge Seizures: Anisocoria: Suspect related to alcohol use, due to anisocoria; r/o cerebral or ocular lesions L >R Head CT , Cervical spine CT, CXR, face CT, pelvic x-ray negative Brain MRI unremarkable, EEG pending Neuro consulted- noted aniscoria could be post-ictal finding, recommending CTA head and neck, ordered. HTN: Not on any current medications Troponin 72.2; trended down, ischemic demand Echo noted concentric changes, dilated aortic root (mild) Outpt follow up recommended. Depressed Mood: Disheveled appearance. Reports last shower 3-4 weeks ago. Variable mood swings at home per sister Depression and anxiety symptoms Visual hallucinations per conversation with sister Psych consult: stated pt downplaying symptoms, declined their services. Disposition: PCP: Dr. Malcolm Code Status: Full Code VTE Prophylaxis: Heparin SQ Next of Kin: SisterAlma [phone] Admission and Anticipated Discharge Date Admission Date: November 15, 2022 Subjective Pt seen this AM. Sister present at the bedside was engaged in conversation with someone else. States that he is feeling better, denies any discomfort. Has been having eye discharge with conjunctival injection. Review of Systems Review of Systems: All systems reviewed & are unremarkable except as noted in Subjective Physical Exam Physical Exam: General: Alert, oriented. No acute distress Psych: Subdued mood and affect Neuro: difficulty with movement HEENT: NC/AT, anisocia noted, eyes with discharge, conjunctival injection CV: RRR, Normal s1, s2. No murmurs appreciated Resp: Breath sounds clear bilaterally, no increased effort of breathing. Abdomen: Soft, nontender, nondistended. Extremities: No edema in lower extremities bilaterally. Results & Data Results & Data Vital Signs (Past 12 Hours) Vital Signs Temp Pulse Pulse Resp BP BP Pulse Ox 11/16/22 08:00 91 H 18 124/76 100 11/16/22 07:44 100 H 19 123/86 98 11/16/22 08:00 37.1 C 11/16/22 06:00 100 H 17 100 11/16/22 06:00 89/73 L 11/16/22 05:50 95 H 23 11/16/22 05:40 97 H 16 11/16/22 00:00 11/15/22 23:27 113 H 11/16/22 04:00 36.9 C 103 H 17 127/90 99 11/16/22 00:00 37.9 C H 113 H 18 98 11/16/22 05:30 95 H 20 11/16/22 05:29 96 H 21 11/16/22 05:29 127/90 11/16/22 05:20 91 H 17 91 11/16/22 05:10 91 H 17 11/16/22 05:00 103 H 21 95 11/16/22 04:50 102 H 17 100 11/16/22 04:40 101 H 18 100 11/16/22 04:30 102 H 19 100 11/16/22 04:20 102 H 17 100 11/16/22 04:10 99 H 18 100 11/16/22 04:00 101 H 18 98 11/16/22 03:50 98 H 18 100 11/16/22 03:40 95 H 20 98 11/16/22 03:30 110 H 21 100 11/16/22 03:20 104 H 17 98 11/16/22 03:10 101 H 18 99 11/16/22 03:00 101 H 17 99 11/16/22 02:50 105 H 16 99 11/16/22 02:40 106 H 16 99 11/16/22 02:30 109 H 16 98 11/16/22 02:20 109 H 17 99 11/16/22 02:10 111 H 17 97 11/16/22 02:00 107 H 17 99 11/16/22 02:00 107/79 11/16/22 01:50 103 H 18 99 11/16/22 01:40 112 H 12 97 11/16/22 01:30 106 H 18 100 11/16/22 01:20 105 H 19 100 11/16/22 01:10 114 H 21 94 11/16/22 01:02 113 H 21 100 11/16/22 01:02 133/98 11/16/22 01:00 123 H 17 78 L 11/16/22 01:00 151/110 H 11/16/22 00:50 113 H 19 93 11/16/22 00:40 130 H 19 83 L 11/16/22 00:30 118 H 20 99 11/16/22 00:20 122 H 23 99 11/16/22 00:10 119 H 18 100 11/16/22 00:00 112 H 18 99 11/16/22 00:00 130/92 11/15/22 23:50 117 H 18 100 11/15/22 23:40 117 H 20 98 11/15/22 23:34 118 H 25 H 100 11/15/22 23:34 127/91 11/15/22 23:30 116 H 18 92 11/15/22 23:20 114 H 30 H 78 L 11/15/22 23:10 120 H 24 100 11/15/22 23:00 125 H 22 99 11/15/22 23:00 117/74 11/15/22 23:23 37.3 C 135 H 18 123/99 96 O2 Del Method O2 Flow Rate 11/16/22 08:00 Nasal Cannula 2 11/16/22 07:44 Nasal Cannula 2 11/16/22 08:00 11/16/22 06:00 11/16/22 06:00 11/16/22 05:50 11/16/22 05:40 11/16/22 00:00 Room Air 11/15/22 23:27 11/16/22 04:00 Room Air 11/16/22 00:00 Room Air 11/16/22 05:30 11/16/22 05:29 11/16/22 05:29 11/16/22 05:20 11/16/22 05:10 11/16/22 05:00 11/16/22 04:50 11/16/22 04:40 11/16/22 04:30 11/16/22 04:20 11/16/22 04:10 11/16/22 04:00 11/16/22 03:50 11/16/22 03:40 11/16/22 03:30 11/16/22 03:20 11/16/22 03:10 11/16/22 03:00 11/16/22 02:50 11/16/22 02:40 11/16/22 02:30 11/16/22 02:20 11/16/22 02:10 11/16/22 02:00 11/16/22 02:00 11/16/22 01:50 11/16/22 01:40 11/16/22 01:30 11/16/22 01:20 11/16/22 01:10 11/16/22 01:02 11/16/22 01:02 11/16/22 01:00 11/16/22 01:00 11/16/22 00:50 11/16/22 00:40 11/16/22 00:30 11/16/22 00:20 11/16/22 00:10 11/16/22 00:00 11/16/22 00:00 11/15/22 23:50 11/15/22 23:40 11/15/22 23:34 11/15/22 23:34 11/15/22 23:30 11/15/22 23:20 11/15/22 23:10 11/15/22 23:00 11/15/22 23:00 11/15/22 23:23 Room Air
[2022-11-16] MEDS: TRIMETHOPRIM/POLYMYXIN B OP SCH ×4 (10:24→23:32)
--- NOTE | 2022-11-16 10:25 | Communication Note ---
Date of Service: November 16, 2022 consult received. patient was cooperative with nursing assessment last night, no knight since withdrawal managed, likely better functioning in conversation when not postictal. Screened negative for depression and SI. No psych hx. Minimizing alcohol use compared to that reported by sister. He declined involvement of behavioral health. Notified Dr. Cunningham that will cancel formal consult but remain available should acute needs arise as alcohol withdrawal/seizure most likely cause of initial presentation. No acute agitation/indication for 302 warrant for an exam.
--- NOTE | 2022-11-16 11:34 | Neurology Consultation ---
Date of Consultation November 16, 2022 Assessment & Plan (1) Alcohol abuse with withdrawal: (2) Seizure: A 57 yo M with history of alcohol abuse admitted with alcohol withdrawl and provoked or alcohol withdrawal seizure. Last drink reported to be roughly 1 week ago with tachycardia and increased tremulousness and visual hallucinations. Consider standard 6-day ativan taper for alcohol withdrawal as inpatient. Counselled on alcohol abstinence. Agree with routine EEG which can be done on Friday or as outpatient. I would not recommend starting anti-epileptic medication. In regards to the aniscoria this can be seen postically after a seizure or from trauma. Would recommend CTA head and neck to exclude PCOM aneursym or carotid dissection. MRI brain reviewed and reassuring - chronic changes with no evidence of midline shift or acute intracranial abnormality. Would continue electrolyte replacement including B12 , folic acid, and Vit B1. I would recommend checking a Vit b6 as this can be associated wiht Neuropathy. 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 I will follow up the results of the CTA head and neck otherwise Neuro will sign off for now. History of Present Illness Reason for Consultation: New onset seizure Attending Physician: Klarissa Cunningham MD History of Present Illness A 57 yo Male with history of alchol abuse (~ 18 beers per day) admitted from home yesterday with fall and witnessed seizure. His sister is bedside. He lives alone. He remembers falling. Denies history of seizure or childhoood epilepsy. He has numbness in his feet which he reports he has had for years. He also has shoulder problem and following with ortho in [place]. He reports feeling ok this morning. He is other tsai a poor historian. His last drink was reported to be about a week ago and he had noted increased tremors and visual hallucinations. He works for [employer] He was noted to have aniscoria on arrival and Neuro consulted. He under MRI and liver US. He was given ativan in the ER and banna bag. Allergies Allergy/AdvReac Type Severity Reaction Status Date / Time No Known Allergies Allergy Unverified 11/15/22 15:49 Home Medications Medication Instructions Recorded Confirmed Type No Known Home Medications 11/15/22 11/15/22 History Patient History Medical History (Updated 11/15/22 @ 22:26 by Dash Avelar MD) Alcohol abuse with withdrawal HTN (hypertension) Mood altered No pertinent family history No pertinent past medical history Seizure Surgical History (Updated 11/15/22 @ 16:02 by Dash Avelar MD) No pertinent past surgical history Social History (Updated 11/15/22 @ 16:02 by Dash Avelar MD) Smoking Status: Never smoker Do You Dip or Chew Tobacco: No; Hx Alcohol Use: Yes Alcohol type: beer Alcohol Intake Frequency: 2-3 x/Week Alcohol Intake Frequency Comment: Binge Drinker on the weekends Hx Substance Use: No Preferred Language: Tunisian Communication Ability: Effective Manager Industrial Required: No Beliefs That Will Affect Care: None Current Living Situation: Alone Current Living Situation Comment: home alone Other Information That Helps Us Care for You: No Feels Safe at Home: Yes Safety Concerns: Feels Safe At This Time Assistive Devices: None Results & Data Vital Signs (Past 12 Hours) Vital Signs Temp Pulse Pulse Resp BP BP Pulse Ox 11/16/22 08:00 95 H 11/16/22 10:00 98 H 16 127/89 100 11/16/22 09:00 99 H 15 109/82 98 11/16/22 08:00 11/16/22 08:00 91 H 18 124/76 100 11/16/22 07:44 100 H 19 123/86 98 11/16/22 08:00 37.1 C 11/16/22 06:00 100 H 17 100 11/16/22 06:00 89/73 L 11/16/22 05:50 95 H 23 11/16/22 05:40 97 H 16 11/16/22 00:00 11/16/22 04:00 36.9 C 103 H 17 127/90 99 11/16/22 00:00 37.9 C H 113 H 18 98 11/16/22 05:30 95 H 20 11/16/22 05:29 96 H 21 11/16/22 05:29 127/90 11/16/22 05:20 91 H 17 91 11/16/22 05:10 91 H 17 11/16/22 05:00 103 H 21 95 11/16/22 04:50 102 H 17 100 11/16/22 04:40 101 H 18 100 11/16/22 04:30 102 H 19 100 11/16/22 04:20 102 H 17 100 11/16/22 04:10 99 H 18 100 11/16/22 04:00 101 H 18 98 11/16/22 03:50 98 H 18 100 11/16/22 03:40 95 H 20 98 11/16/22 03:30 110 H 21 100 11/16/22 03:20 104 H 17 98 11/16/22 03:10 101 H 18 99 11/16/22 03:00 101 H 17 99 11/16/22 02:50 105 H 16 99 11/16/22 02:40 106 H 16 99 11/16/22 02:30 109 H 16 98 11/16/22 02:20 109 H 17 99 11/16/22 02:10 111 H 17 97 11/16/22 02:00 107 H 17 99 11/16/22 02:00 107/79 11/16/22 01:50 103 H 18 99 11/16/22 01:40 112 H 12 97 11/16/22 01:30 106 H 18 100 11/16/22 01:20 105 H 19 100 11/16/22 01:10 114 H 21 94 11/16/22 01:02 113 H 21 100 11/16/22 01:02 133/98 11/16/22 01:00 123 H 17 78 L 11/16/22 01:00 151/110 H 11/16/22 00:50 113 H 19 93 11/16/22 00:40 130 H 19 83 L 11/16/22 00:30 118 H 20 99 11/16/22 00:20 122 H 23 99 11/16/22 00:10 119 H 18 100 11/16/22 00:00 112 H 18 99 11/16/22 00:00 130/92 11/15/22 23:50 117 H 18 100 11/15/22 23:40 117 H 20 98 O2 Del Method O2 Flow Rate 11/16/22 08:00 11/16/22 10:00 Nasal Cannula 2 11/16/22 09:00 Nasal Cannula 2 11/16/22 08:00 Nasal Cannula 2 11/16/22 08:00 Nasal Cannula 2 11/16/22 07:44 Nasal Cannula 2 11/16/22 08:00 11/16/22 06:00 11/16/22 06:00 11/16/22 05:50 11/16/22 05:40 11/16/22 00:00 Room Air 06/17/23 04:00 Room Air 11/16/22 00:00 Room Air 11/16/22 05:30 11/16/22 05:29 11/16/22 05:29 11/16/22 05:20 11/16/22 05:10 11/16/22 05:00 11/16/22 04:50 11/16/22 04:40 11/16/22 04:30 11/16/22 04:20 11/16/22 04:10 11/16/22 04:00 11/16/22 03:50 11/16/22 03:40 11/16/22 03:30 11/16/22 03:20 11/16/22 03:10 11/16/22 03:00 11/16/22 02:50 11/16/22 02:40 11/16/22 02:30 11/16/22 02:20 11/16/22 02:10 11/16/22 02:00 11/16/22 02:00 11/16/22 01:50 11/16/22 01:40 11/16/22 01:30 11/16/22 01:20 11/16/22 01:10 11/16/22 01:02 11/16/22 01:02 11/16/22 01:00 11/16/22 01:00 11/16/22 00:50 11/16/22 00:40 11/16/22 00:30 11/16/22 00:20 11/16/22 00:10 11/16/22 00:00 11/16/22 00:00 11/15/22 23:50 11/15/22 23:40 Laboratory Results Pottassium 3.3 Mag Low Na 125 Liver enzymes elevated Ammonia Elevated Diagnostic Findings MRI good reviewed. Chronic micorvascular ischemic changes and volume loss. No evidence of acute stroke or hemorrhage. Motion artifact.
--- NOTE | 2022-11-16 13:13 | Electrocardiogram Report ---
Test Reason : Blood Pressure : / mmHG Vent. Rate : 130 BPM Atrial Rate : 130 BPM P-R Int : 150 ms QRS Dur : 076 ms QT Int : 304 ms P-R-T Axes : 070 072 062 degrees QTc Int : 447 ms Sinus tachycardia Possible Left atrial enlargement Poor R wave progression, consider anterior [place] vs. lead placement vs. LVH Abnormal ECG No previous ECGs available Confirmed by Piter Mcelroy ([id number]) on 11/16/2022 1:13:08 PM Referred By: REFERRED SELF Confirmed By:Piter Mcelroy
[2022-11-16] MEDS ORDERED: OPTIRAY 320 125ml IV ONE (13:25)
--- NOTE | 2022-11-16 16:03 | CT Scan Report ---
CT ANGIOGRAM OF THE BRAIN COMBO; CT ANGIOGRAM OF THE NECK CLINICAL HISTORY: Alcohol withdrawal. Anisocoria. COMPARISON STUDY: CT and MRI of the brain dictated 11/15/2022. TECHNIQUE: Unenhanced axial CT scan of the brain is performed. Subsequently, following the IV adminis tration of 120 of Optiray 320, CT angiogram of the head and neck was performed from the aortic arch t o the vertex. Images are reviewed in the axial, sagittal, and coronal planes. 3-D MIPS images are cre ated and assessed. IV contrast was administered without complication. All measurements were calculate d based on NASCET criteria. A dose lowering technique was utilized adhering to the principles of ALA RA. CT DOSE: 995.74 mGy.cm FINDINGS: Brain parenchyma: There is age advanced involutional change noting moderate subcortical and periventr icular microangiopathic disease. There is no hemorrhage, mass effect, or evidence of acute territoria l ischemia by CT criteria. There is no evidence of enhancing mass lesion on the angiogram phase image s. The ventricles, sulci, and cisterns are prominent secondary to involutional change. Gill-white mat ter differentiation is preserved. No extra-axial fluid collection is seen. Thoracic aorta: Visualized portions of the thoracic aorta are normal in caliber. The aortic arch demo nstrates standard 3-vessel anatomy. Right carotid arterial system: The right common carotid artery is widely patent, as are the right int ernal and external carotid arteries. Mild calcified plaque is noted in the carotid bulb. Left carotid arterial system: The left common carotid artery is widely patent, as are the left regulatory affairs intern al and external carotid arteries. Mild atherosclerotic plaque is noted in the ICA. Vertebral arteries: The vertebral arteries are widely patent bilaterally noting right-sided dominance . Subclavian arteries: Widely patent bilaterally. Intracranial vasculature: There is atherosclerotic calcification of the cavernous carotid and vertebr al arteries. The internal carotid arteries are patent at the skull base, as are the anterior and midd le cerebral arteries bilaterally. The vertebrobasilar system and posterior cerebral arteries are wide ly patent. There is mild dolichoectasia of the basilar artery. The right vertebral artery is dominant . There is no aneurysm, high-grade stenosis, or focal vessel cut off seen throughout the intracranial circulation. Jugular veins: Patent bilaterally. Dural sinuses: Patent. Lung apices: Partially visualized upper lobe lung parenchyma appears clear. Soft tissues: The visualized pharyngeal soft tissues are normal in appearance noting angiographic pha se technique. The oropharyngeal airway appears widely patent. The salivary and thyroid glands are nor mal in appearance. No cervical lymphadenopathy is seen. Skeletal structures: The skeletal structures are osteopenic. The calvarium appears intact. The cervic al spine is maintained noting multilevel spondylosis. No lytic or blastic lesion is seen. Orbits: The bony orbits are intact. Orbital contents are normal as visualized. Sinuses and mastoids: The paranasal sinuses are clear. There are small left and trace right mastoid e ffusions. Cerumen is noted within the external auditory canals. IMPRESSION: 1. There is no hemorrhage, mass effect, or evidence of acute territorial ischemia by CT criteria. 2. Unremarkable CT angiogram of the brain. 3. Unremarkable CT angiogram of the neck. ACT 112: Negative or not required by law. Electronically signed by: Tyler Dover M.D. 11/16/2022 4:01 PM
[2022-11-17] MEDS: CYANOCOBALAMIN 1000 MCG/ML VIAL IM SCH ×2 (01:05→23:17)
[2022-11-17] MEDS: TRIMETHOPRIM/POLYMYXIN B OP SCH ×6 (03:28→21:55)
[2022-11-17] MEDS: GABAPENTIN 600 MG TAB PO SCH ×3 (04:11→23:18)
[2022-11-17] MEDS: NICOTINE 21 MG/24 HR TDSY TD SCH ×2 (06:11→23:17)
[2022-11-17] MEDS: levETIRAcetam 1,000 MG in 0.9 % SODIUM CHLORIDE 100 ML IV SCH ×2 (06:28→17:00)
[2022-11-17 07:18] LABS: Thyroid Stimulating Hormone 4.857 uIu/ml (0.300-4.500)
[2022-11-17] MEDS: FOLIC ACID 1 MG TAB PO SCH (07:41)
[2022-11-17 07:49] LABS: Basophils # (auto) 0.03 K/uL (0-0.2); Basophils % (auto) 0.5 %; Eosinophils # (auto) 0.06 K/uL (0-0.50); Hematocrit (blood only) 30.6 % (42.0-52.0); Hemoglobin 11.2 g/dl (14.0-18.0); Immature Granulocytes # (auto) 0.02 K/uL (0.01-0.20); Immature Granulocytes % (auto) 0.3 %; Lymphocytes % (auto) 20.8 %; Mean Corpuscular Hemoglobin 34.3 pg (25.0-34.0); Mean Corpuscular Hgb Conc 36.6 g/dL (32.0-36.0); Mean Corpuscular Volume 93.6 fL (80.0-100.0); Mean Platelet Volume 9.5 fL (9.4-12.4); Monocytes # (auto) 0.52 K/uL (0.11-0.59); Neutrophils # (auto) 3.95 K/uL (1.40-6.50); Neutrophils % (auto) 68.4 %; Platelet Count 128 K/uL (130-400); RDW Coefficient of Variation 12.6 % (11.5-14.5); RDW Standard Deviation 43.6 fL (36.4-46.3); Red Blood Count 3.27 M/uL (4.70-6.10); White Blood Count 5.78 K/ul (4.8-10.8)
[2022-11-17 07:54] LABS: T4 Free Thyroxine 0.9 ng/dl (0.61-1.60)
[2022-11-17 08:06] LABS: Albumin Level 2.6 gm/dl (3.4-5.0); BUN Creatinine Ratio 9.6 (10-20); Bilirubin,Total 0.9 mg/dl (0.2-1.0); Creatinine Clr Calc Pharmacy 116.6 ml/min; Est GFR (Non-African American) 104.4 ml/min; Globulin 2.6 gm/dl (2.5-4.0); Potassium 3.7 mmol/L (3.5-5.1); Total Protein 5.2 gm/dl (6.0-8.3)
[2022-11-17] MEDS: THIAMINE HCL 100 MG TAB PO SCH (09:29)
--- NOTE | 2022-11-17 20:54 | Hospitalist Progress Note ---
Date of Service November 17, 2022 Assessment & Plan (1) Alcohol abuse with withdrawal: (2) Seizure: (3) HTN (hypertension): (4) Mood altered: Plan 57 year old admitted in alcohol withdrawal, with syncopal/seizure episodes and concerning anisocoria. Delirium Tremens: Alcohol Abuse: Hyponatremia AWSS protocol Banana bag Hyponatremia possibly due to "beer potomania"- osmolality suggests a hypotonic hyponatremia, euvolemic. SIADH also on differential TSH with free T4 suggests a subclinical hypothyroidism- noted that TSH can be elevated during acute body stressors. UDS- normal Continue with fluid restriction at this time. Hyponatremia improving. Consider nephrology referral if hyponatremia persistent. Ammonia level currently normal Addiction Medicine assistance to help with discontinuing alcohol use recommended upon discharge Seizures: Anisocoria: Suspect related to alcohol use, due to anisocoria; r/o cerebral or ocular lesions L >R, improving Head CT , Cervical spine CT, CXR, face CT, pelvic x-ray negative Brain MRI unremarkable, EEG pending Neuro consulted- noted anisocoria could be post-ictal finding, recommending CTA head and neck, unremarkable. HTN/elevated troponins: Not on any current medications Troponin 72.2; trended down, ischemic demand Echo noted concentric changes, dilated aortic root (mild) Outpt follow up recommended. Depressed Mood: Due to appearance, mood, hallucinations Psych consult: stated pt downplaying symptoms, declined their services. Disposition: PCP: Dr. Malcolm Code Status: Full Code VTE Prophylaxis: Heparin SQ Diet: regular Next of Kin: SisterAlma [phone] Admission and Anticipated Discharge Date Admission Date: November 15, 2022 Subjective Pt seen this AM. States that he has numbness in his lower extremities, has been there chronically. Unsure if his eye infection is improving. Review of Systems Review of Systems: All systems reviewed & are unremarkable except as noted in Subjective Physical Exam Physical Exam: General: Alert, oriented. No acute distress Psych: Subdued mood and affect Neuro: difficulty with movement HEENT: NC/AT, anisocoria improved, eyes with discharge, conjunctival injection CV: RRR Resp: Breath sounds clear bilaterally, no increased effort of breathing. Abdomen: Soft, nontender, nondistended. Extremities: No edema in lower extremities bilaterally. Results & Data Results & Data Vital Signs (Past 12 Hours) Vital Signs Temp Pulse Resp BP BP Pulse Ox O2 Del Method 11/17/22 19:55 37.1 C 99 H 18 135/86 96 Room Air 11/17/22 16:00 36.5 C 88 18 121/61 97 Room Air
[2022-11-18] MEDS: TRIMETHOPRIM/POLYMYXIN B OP SCH ×6 (01:57→22:13)
[2022-11-18] MEDS ORDERED: POTASSIUM CHLORIDE CRTAB 20 MEQ TABCR PO STA ×2 (04:32→07:08)
[2022-11-18] MEDS ORDERED: NSS + 20MEQ KCL 20 MEQ/1,000 ML BAG IV ONE (04:41)
[2022-11-18] MEDS: levETIRAcetam 1,000 MG in 0.9 % SODIUM CHLORIDE 100 ML IV SCH ×2 (05:30→18:32)
[2022-11-18 06:33] LABS: BUN Creatinine Ratio 8.8 (10-20); Basophils # (auto) 0.02 K/uL (0-0.2); Basophils % (auto) 0.5 %; Calcium 7.9 mg/dl (8.6-10.3); Creatinine Clr Calc Pharmacy 106.4 ml/min; Eosinophils # (auto) 0.08 K/uL (0-0.50); Eosinophils % (auto) 1.8 %; Est GFR (African American) 116.6 ml/min; Est GFR (Non-African American) 100.6 ml/min; Hematocrit (blood only) 29.8 % (42.0-52.0); Hemoglobin 10.6 g/dl (14.0-18.0); Immature Granulocytes # (auto) 0.02 K/uL (0.01-0.20); Immature Granulocytes % (auto) 0.5 %; Lymphocytes # (auto) 1.14 K/uL (1.2-3.4); Lymphocytes % (auto) 26.1 %; Magnesium 1.9 mg/dl (1.7-2.4); Mean Corpuscular Hemoglobin 34.3 pg (25.0-34.0); Mean Corpuscular Hgb Conc 35.6 g/dL (32.0-36.0); Mean Corpuscular Volume 96.4 fL (80.0-100.0); Mean Platelet Volume 9.1 fL (9.4-12.4); Monocytes # (auto) 0.51 K/uL (0.11-0.59); Monocytes % (auto) 11.7 %; Neutrophils # (auto) 2.59 K/uL (1.40-6.50); Neutrophils % (auto) 59.4 %; Platelet Count 129 K/uL (130-400); Potassium 3.1 mmol/L (3.5-5.1); RDW Coefficient of Variation 12.5 % (11.5-14.5); Red Blood Count 3.09 M/uL (4.70-6.10); White Blood Count 4.36 K/ul (4.8-10.8)
--- NOTE | 2022-11-18 06:34 | Communication Note ---
Date of Service: November 18, 2022 4:30 AM PSVT on the monitor as per RN, heart rate 160s lasting less than a minute. Patient asymptomatic during episode as per RN. AP PSVT check electrolytes and supplement K and mag as needed Cardiology consult
[2022-11-18] MEDS ORDERED: MAGNESIUM SULFATE / D5W 1 GM/100 ML BAG IV ONE (07:09)
[2022-11-18] MEDS: FOLIC ACID 1 MG TAB PO SCH (08:13)
[2022-11-18] MEDS: THIAMINE HCL 100 MG TAB PO SCH (08:13)
[2022-11-18] MEDS ORDERED: POTASSIUM CHLORIDE CRTAB 20 MEQ TABCR PO SCH (09:15)
--- NOTE | 2022-11-18 09:42 | Cardiology Consultation ---
Date of Consultation November 18, 2022 Assessment & Plan (1) Alcohol abuse with withdrawal: (2) Seizure: (3) Acute hyponatremia: (4) Wide-complex tachycardia: (5) Elevated troponin: (6) Aortic regurgitation: (7) Aortic root enlargement: (8) LVH (left ventricular hypertrophy): (9) HTN (hypertension): Plan Supplement potassium. Maintain normokalemia and normomagnesemia. Add beta-kandice therapy, metoprolol succinate 25 mg/day Electrocardiogram in AM Outpatient stress testing Risk factor and lifestyle modification. Supervising Physician Co-Signing Physician Notes Patient seen examined the bedside. Denies chest pain or palpitations. Admits to daily alcohol use prior to admission. Denies any palpitations, lightheadedness, or dizziness since admission. No orthopnea, PND, or lower extremity edema. PE: VSS. Gen: Unkempt, awake alert and oriented x3. Heart: Regular rhythm, normal S1-S2. No murmur. Lungs: Clear bilateral, no rales, rhonchi, wheeze. Extremities: No edema. A/P: Agree with above PA-C history, physical exam, assessment and plan. Telemetry reviewed demonstrating nonsustained ventricular tachycardia without associated symptoms. Preserved LV systolic function per echocardiogram. Agree with addition of beta-kandice therapy and electrolyte replacement. Nocturnal pulse oximetry to assessment to exclude sleep apnea. History of Present Illness Reason for Consultation: PSVT Requesting Physician: King Attending Physician: Jami History of Present Illness Mr. Leonardo Harley is a 57 year old male who was admitted to [facility] after presenting to the ER via EMS on November 15, 2022 following a fall at the [facility] outside of [place]. Seizure observed in the ER. Daily ETOH consumption reported with delirium tremens with mood instability and visual hallucinations observed. At 04:18 AM on 11/18/2022 the patient was observed to have a 38 beat of wide complex tachycardia. Patient asymptomatic. Laboratory work revealed hypokalemia with a potassium of 3.1 mmol/L. Magnesium was normal 1.9 mg/dL. 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 No significant bradycardia. No atrial fibrillation or flutter. High-sensitivity troponin was checked on the date of admission, November 15, 2022 x 2 and was mildly elevated at 72.2 pg/mL then 67.7 pg/mL. Resting echocardiography on November 16, 2022 demonstrated the following: Normal LV systolic function. Ejection fraction 65 to 70%. Mild concentric left ventricular hypertrophy. Focal thickening of the basal septum with no evidence of left ventricular outflow obstruction. Grade 1 diastolic dysfunction. Mild aortic regurgitation. Mild aortic root dilatation. Patient specifically denies palpitations, chest pain, shortness of breath, orthopnea, PND, edema, dizziness, syncope, fevers, or rigors. 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 He notes stubbing his left 5th toe with result injury to the nail. + Falls. Past Medical and Surgical History: Chronic alcohol use/abuse Hypertension Dyslipidemia Lumbosacral degenerative disc disease Spondylolisthesis and right shoulder dislocation Right sided rib fractures in 2017 Family History: Unknown to the patient. Chart review reveals a history of breast cancer in mother and hypertension in father. Social History: Smoker, cigarettes, since his teenage years. Reformed smokeless tobacco user. Alcohol: 6 beers per day with significantly higher intake on the weekends. Employed by [employer] Allergies Allergy/AdvReac Type Severity Reaction Status Date / Time No Known Allergies Allergy Unverified 11/15/22 15:49 Home Medications Medication Instructions Recorded Confirmed Type No Known Home Medications 11/15/22 11/15/22 History Patient History Medical History Alcohol abuse with withdrawal HTN (hypertension) Mood altered No pertinent family history No pertinent past medical history Seizure Surgical History No pertinent past surgical history Social History Smoking Status: Never smoker Do You Dip or Chew Tobacco: No; Hx Alcohol Use: Yes Alcohol type: beer Alcohol Intake Frequency: 2-3 x/Week Alcohol Intake Frequency Comment: Binge Drinker on the weekends Hx Substance Use: No Preferred Language: French Communication Ability: Effective Fur Sewer Required: No Beliefs That Will Affect Care: None Current Living Situation: Alone Current Living Situation Comment: home alone Other Information That Helps Us Care for You: No Feels Safe at Home: Yes Safety Concerns: Feels Safe At This Time Assistive Devices: None Review of Systems Review of Systems: Complete Review of Systems: Constitutional: No fevers or rigos. HEENT: No amaurosis fugax. Hard of hearing. Pulmonary: No history of asthma. No history of COPD. No history of sleep apnea. No history of pulmonary embolism. Cardiac: No prior cardiac history. GI/Abd: No dysphagia. No melana or hematochezia. Denies kidney problems. Vascular: Denies history of carotid disease, AAA, or lower extremity claudication Hematologic: No coagulation disorder. Musculoskeletal: Chronic back pain. Bilateral shoulder pain. Neurologic: + Seizure. No history of TIA or CVA Endocrine: Denies DM or thyroid problems. Complete Review of Systems is as stated above, negative, or noncontributory. Physical Exam Physical Exam: General: Alert and oriented to person and place. NAD. HENT: Normocephalic. Atraumatic. Unequal pupils. Neck: No carotid bruits. No JVD. No HJR. Heart: Irregular with occasional ectopy. Grade II/ systolic murmur. No diastolic murmur. No rub. PMI is nondisplaced. Lungs: Clear to auscultation anteriorly. No wheeze. Abdomen: +BS. Soft. Nontender. No masses or organomegaly. Extremities: Multiple excoriations and ecchymoses in various stages of healing. No clubbing. No cyanosis. No edema. Pulses: radial=2/4, posterior tibial=2/4. Results & Data Vital Signs (Past 12 Hours) Vital Signs Temp Pulse Pulse Resp BP BP Pulse Ox 11/18/22 07:37 37.6 C H 87 18 139/88 95 11/18/22 07:21 89 11/18/22 03:00 37.0 C 81 16 132/85 99 11/18/22 00:04 87 11/17/22 23:00 37.1 C 90 18 162/104 H 158/100 H 98 O2 Del Method 11/18/22 07:37 Room Air 11/18/22 07:21 11/18/22 03:00 Room Air 11/18/22 00:04 11/17/22 23:00 Room Air Laboratory Results CBC 11/18/22 Range/Units 05:26 WBC 4.36 L (4.8-10.8) K/ul RBC 3.09 L (4.70-6.10) M/uL Hgb 10.6 L (14.0-18.0) g/dl Hct 29.8 L (42.0-52.0) % Plt Count 129 L (130-400) K/uL Neut # (Auto) 2.59 (1.40-6.50) K/uL Lymph # (Auto) 1.14 L (1.2-3.4) K/uL [place] # (Auto) 0.51 (0.11-0.59) K/uL Eos # (Auto) 0.08 (0-0.50) K/uL Baso # (Auto) 0.02 (0-0.2) K/uL Comprehensive Metabolic Panel 11/18/22 Range/Units 05:26 Sodium 133 L (136-145) mmol/L Potassium 3.1 L (3.5-5.1) mmol/L Chloride 103 (98-107) mmol/L Carbon Dioxide 24 (21-32) mmol/L BUN 7 (6-23) mg/dl Creatinine 0.80 (0.6-1.4) mg/dl Glucose 124 H (70-99(Fasting)) mg/dl Calcium 7.9 L (8.6-10.3) mg/dl Intake and Output 11/17/22 11/18/22 11/18/22 22:59 06:59 14:59 Intake Total 350 / 960 110 / 960 Output Total 850 / 2101 600 / 2101 Balance -500 / -1141 -490 / -1141 Intake: IV 110 / 220 110 / 220 levETIRAcetam 1,000 mg In 0.9 % 110 / 220 110 / 220 Sodium Chloride 100 ml @ 440 mls/hr IV Q12H [facility] Rx#:[id number] Oral 240 / 740 Output: Urine 850 / 1850 600 / 1850 Other: Weight 73.2 kg Weight Measurement Method Built in [facility]
[2022-11-18] MEDS ORDERED: METOPROLOL SUCC 25MG EXT REL TAB PO SCH (10:15)
[2022-11-18] MEDS: GABAPENTIN 600 MG TAB PO SCH (12:51)
[2022-11-18 14:25] LABS: BUN Creatinine Ratio 7.1 (10-20); Calcium 7.8 mg/dl (8.6-10.3); Creatinine Clr Calc Pharmacy 76.5 ml/min; Est GFR (African American) 84.3 ml/min; Est GFR (Non-African American) 72.8 ml/min; Potassium 4.2 mmol/L (3.5-5.1)
--- NOTE | 2022-11-18 14:42 | Hospitalist Progress Note ---
Date of Service November 18, 2022 Assessment & Plan (1) Alcohol abuse with withdrawal: (2) Seizure: (3) HTN (hypertension): (4) Mood altered: Plan 57 year old admitted in alcohol withdrawal, with syncopal/seizure episodes and concerning anisocoria. Delirium Tremens: Alcohol Abuse: Hypotonic hyponatremia secondary to above Alcohol associated neuropathy Continue alcohol withdrawal protocol-gabapentin, thiamine, folic acid Received Banana bag TSH within fairly normal limits Normal free T4 Monitor sodium levels: Improved to 134 Ammonia level normal Patient refused psychiatry evaluation Continue thiamine, folic acid PT OT as able EMG as outpatient Check vitamin B6 levels Wide-complex tachycardia Hypokalemia, hypomagnesemia Needs outpatient stress test Appreciate cardiology input Risk factor, lifestyle modification Appreciate cardiology input Continue metoprolol 25 mg daily Replete electrolytes as needed Nocturnal oximetry study pending Hepatic steatosis Transaminitis --Liver USD:Hepatic steatosis. Gallstones and biliary sludge with no sonographic evidence of acute cholecystitis. Sepsis in setting of alcohol use LFTs trending down Monitor Seizures: Anisocoria: Suspect related to alcohol use/Seizure --Head/Neck CTA:There is no hemorrhage, mass effect, or evidence of acute territorial ischemia by CT criteria. Unremarkable CT angiogram of the brain. Unremarkable CT angiogram of the neck. --MRI Brain:No acute findings in the head/brain. 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 DVT Px: Heparin SQ Code Status: Full Code Admission and Anticipated Discharge Date Admission Date: November 15, 2022 Subjective Patient is seen and examined at bedside States having back pain chronically, associated with lower extremity numbness Noted to have VT overnight, asymptomatic Denies any chest pain, dyspnea, dizziness, nausea, abdominal pain No other complaints Review of Systems Review of Systems: All systems reviewed & are unremarkable except as noted in Subjective Physical Exam Physical Exam: Physical Exam: Vitals signs as noted above General Appearance:Moderately built and nourished, no apparent distress, Chronic ill appearing Head: normocephalic, Atraumatic Eyes: normal inspection, EOMI Neck: supple, Trachea midline Respiratory/Chest: Normal breath sounds, CTA, No accessory muscle use Cardiovascular: S1, S2, No murmur Abdomen/GI:Soft, Non tender, Bowel sounds present Extremities/Musculoskeletal:normal inspection, no edema, LUE bruises Neurologic/Psych:AAOX3, grossly no focal neurological deficits Skin: normal color, warm Results & Data Results & Data Vital Signs (Past 12 Hours) Vital Signs Temp Pulse Pulse Resp BP BP Pulse Ox 11/18/22 11:28 36.9 C 84 18 134/85 99 11/18/22 07:37 37.6 C H 87 18 139/88 95 11/18/22 07:21 89 11/18/22 03:00 37.0 C 81 16 132/85 99 O2 Del Method 11/18/22 11:28 Room Air 11/18/22 07:37 Room Air 11/18/22 07:21 11/18/22 03:00 Room Air Laboratory Results Short CBC 11/18/22 Range/Units 05:26 WBC 4.36 L (4.8-10.8) K/ul Hgb 10.6 L (14.0-18.0) g/dl Hct 29.8 L (42.0-52.0) % Plt Count 129 L (130-400) K/uL BMP 11/18/22 11/18/22 05:26 13:54 Sodium 133 L 134 L Potassium 3.1 L 4.2 D Chloride 103 105 Carbon Dioxide 24 25 BUN 7 8 Creatinine 0.80 1.13 D Glucose 124 H 118 H Calcium 7.9 L 7.8 L
[2022-11-18] MEDS ORDERED: POTASSIUM CHLORIDE CRTAB 20 MEQ TABCR PO ONE (16:00)
[2022-11-18] MEDS: HEPARIN SOD 5,000 UNIT/0.5 ML VIAL SQ SCH (20:45)
--- NOTE | 2022-11-18 22:07 | Electroencephalogram ---
EEG Procedure Note Date of Service November 18, 2022 Start / End Times Start Time: 10:33 End Time: 10:53 Referring Physician Belen Cisse History A 57 year old male with alchol withdrawal seizure. EEG performed for evaluaiton of epileptiform activity. Home Medication List Medication Instructions Recorded Confirmed Type No Known Home Medications 11/15/22 11/15/22 History Inpatient Medication List Cyanocobalamin (Cyanocobalamin 1000 Mcg/Ml Vial) 1,000 mcg IM Q24H [facility] Stop: 11/20/22 00:01 Last Admin: 11/17/22 23:17 Dose: 1,000 mcg Documented By: Admin: 11/17/22 01:05 Dose: 1,000 mcg Documented By: Admin: 11/16/22 00:30 Dose: 1,000 mcg Documented By: BLAISE Folic Acid (Folic Acid 1 Mg Tab) 1 mg PO QAM [facility] Stop: 12/16/22 08:59 Last Admin: 11/18/22 08:13 Dose: 1 mg Documented By: Admin: 11/17/22 07:41 Dose: 1 mg Documented By: Admin: 11/16/22 09:31 Dose: 1 mg Documented By: JULISSA Heparin Sodium (Porcine) (Heparin Sod 5,000 Unit/0.5 Ml Vial) 5,000 units SQ Q12 [facility] Stop: 12/18/22 20:59 Last Admin: 11/18/22 20:45 Dose: 5,000 units Documented By: CRYSTAL Levetiracetam 1,000 mg/ Sodium (Chloride) 110 mls @ 440 mls/hr IV Q12H [facility] Stop: 12/16/22 06:29 Last Infusion: 11/18/22 19:18 Dose: 0 mls/hr Documented By: Admin: 11/18/22 18:32 Dose: 200 mls/hr Documented By: Infusion: 11/18/22 05:48 Dose: 0 mls/hr Documented By: Admin: 11/18/22 05:30 Dose: 440 mls/hr Documented By: Infusion: 11/17/22 18:44 Dose: 0 mls/hr Documented By: Admin: 11/17/22 17:00 Dose: 440 mls/hr Documented By: Infusion: 11/17/22 06:58 Dose: 0 mls/hr Documented By: Admin: 11/17/22 06:28 Dose: 440 mls/hr Documented By: Infusion: 11/16/22 20:01 Dose: 0 mls/hr Documented By: Admin: 11/16/22 18:11 Dose: 440 mls/hr Documented By: Infusion: 11/16/22 07:21 Dose: 0 mls/hr Documented By: Admin: 11/16/22 06:53 Dose: 440 mls/hr Documented By: BLAISE Potassium Chloride/Sodium Chloride (Normal Saline W/20 Meq Kcl) 20 meq in 1,000 mls @ 50 mls/hr IV .Q20H ONE; Protocol Stop: 11/19/22 00:40 Last Admin: 11/18/22 05:00 Dose: 50 mls/hr Documented By: CRYSTAL Lorazepam (Lorazepam 2 Mg/1 Ml Vial) 2 mg IV UD PRN; Protocol PRN Reason: EtOH Withdrawal AWSS Score 8,9 Stop: 12/16/22 01:01 Last Admin: 11/16/22 01:35 Dose: 2 mg Documented By: BLAISE Metoprolol Succinate (Metoprolol Succ 25mg Ext Rel Tab) 25 mg PO QAM [facility] Stop: 12/18/22 10:14 Last Admin: 11/18/22 12:52 Dose: 25 mg Documented By: GEORGINA Miscellaneous (Remove Nicoderm Patch) 1 each N/A DAILY@0859 [facility] Stop: 12/16/22 08:58 Last Admin: 11/18/22 08:12 Dose: 1 each Documented By: Admin: 11/17/22 07:43 Dose: Not Given Documented By: Admin: 11/16/22 08:50 Dose: Not Given Documented By: JULISSA Nicotine (Nicotine 21 Mg/24 Hr Tdsy) 21 mg TD Q24H [facility] Stop: 12/16/22 00:00 Last Admin: 11/17/22 23:17 Dose: 21 mg Documented By: Admin: 11/17/22 06:11 Dose: 21 mg Documented By: Admin: 11/16/22 00:49 Dose: Not Given Documented By: BLAISE Polymyxin/Trimethoprim Sulfate (Trimethoprim/Polymyxin B) 1 drops OP Q4H [facility] Stop: 12/16/22 10:14 Last Admin: 11/18/22 17:30 Dose: Not Given Documented By: Admin: 11/18/22 16:07 Dose: Not Given Documented By: Admin: 11/18/22 12:52 Dose: 1 drops Documented By: Admin: 11/18/22 05:24 Dose: 1 drops Documented By: Admin: 11/18/22 01:57 Dose: 1 drops Documented By: Admin: 11/17/22 21:55 Dose: 1 drops Documented By: Admin: 11/17/22 17:01 Dose: 1 drops Documented By: Admin: 11/17/22 15:05 Dose: 1 drops Documented By: Admin: 11/17/22 09:30 Dose: 1 drops Documented By: Admin: 11/17/22 06:11 Dose: 1 drops Documented By: Admin: 11/17/22 03:28 Dose: Not Given Documented By: Y Admin: 11/16/22 23:32 Dose: 1 drops Documented By: Admin: 11/16/22 18:12 Dose: 1 drops Documented By: Admin: 11/16/22 15:20 Dose: 1 drops Documented By: Admin: 11/16/22 10:24 Dose: 1 drops Documented By: JULISSA Thiamine HCl (Thiamine Hcl 100 Mg Tab) 100 mg PO QAM [facility] Stop: 12/16/22 08:59 Last Admin: 11/18/22 08:13 Dose: 100 mg Documented By: Admin: 11/17/22 09:29 Dose: 100 mg Documented By: Admin: 11/16/22 09:31 Dose: 100 mg Documented By: JULISSA Discontinued Medications Gabapentin (Gabapentin 600 Mg Tab) 600 mg PO Q12H [facility] Stop: 11/18/22 12:01 Last Admin: 11/18/22 12:51 Dose: 600 mg Documented By: Admin: 11/17/22 23:18 Dose: 600 mg Documented By: CRYSTAL Gabapentin (Gabapentin 600 Mg Tab) 600 mg PO Q8H [facility] Stop: 11/17/22 12:01 Last Admin: 11/17/22 11:37 Dose: 600 mg Documented By: Admin: 11/17/22 04:11 Dose: 600 mg Documented By: Y Admin: 11/16/22 20:05 Dose: 600 mg Documented By: TAYLOR Gabapentin (Gabapentin 600 Mg Tab) 600 mg PO Q6H [facility] Stop: 11/16/22 12:01 Last Admin: 11/16/22 12:49 Dose: 600 mg Documented By: Admin: 11/16/22 06:54 Dose: 600 mg Documented By: BLAISE Gabapentin (Gabapentin 600 Mg Tab) 1,200 mg PO NOW ONE Stop: 11/15/22 23:47 Last Admin: 11/16/22 00:30 Dose: 1,200 mg Documented By: BLAISE Gadobutrol (Gadobutrol 65ml Vial) 7 ml IV ONCE ONE Stop: 11/15/22 21:55 Last Admin: 11/15/22 21:55 Dose: 7 ml Documented By: ARMEN Sodium Chloride (Nss 1000ml) 2,000 mls @ 999 mls/hr IV .Q2H1M ONE Stop: 11/15/22 17:42 Last Infusion: 11/15/22 19:44 Dose: 0 mls/hr Documented By: Admin: 11/15/22 15:57 Dose: 999 mls/hr Documented By: LUPE Thiamine HCl 100 mg/ Folic (Acid 1 mg/ Sodium Chloride) 1,001.2 mls @ 500 mls/hr IV .Q2H1M STA; Protocol Stop: 11/15/22 18:45 Last Infusion: 11/15/22 19:44 Dose: 0 mls/hr Documented By: Admin: 11/15/22 17:29 Dose: 500 mls/hr Documented By: LUPE Levetiracetam 1,000 mg/ Sodium (Chloride) 110 mls @ 440 mls/hr IV NOW STA Stop: 11/15/22 17:42 Last Infusion: 11/15/22 19:44 Dose: 0 mls/hr Documented By: Admin: 11/15/22 18:33 Dose: 440 mls/hr Documented By: LUPE Magnesium Sulfate/Dextrose (Magnesium Sulfate / D5w) 1 gm in 100 mls @ 50 mls/hr IV Q2H [facility] Stop: 11/16/22 01:59 Last Infusion: 11/16/22 06:55 Dose: 0 mls/hr Documented By: Admin: 11/16/22 02:19 Dose: 50 mls/hr Documented By: Infusion: 11/16/22 02:03 Dose: 50 mls/hr Documented By: Admin: 11/16/22 00:03 Dose: 50 mls/hr Documented By: BLAISE Sodium Chloride (Nss 1000ml) 1,000 mls @ 100 mls/hr IV .Q10H [facility] Stop: 11/16/22 17:29 Last Infusion: 11/16/22 18:16 Dose: 0 mls/hr Documented By: Admin: 11/16/22 09:30 Dose: 100 mls/hr Documented By: Infusion: 11/16/22 09:30 Dose: 100 mls/hr Documented By: Admin: 11/15/22 23:49 Dose: 100 mls/hr Documented By: BLAISE Potassium Chloride (K Himanshu / Wtr) 10 meq in 100 mls @ 100 mls/hr IV Q1H [facility] Stop: 11/16/22 05:14 Last Infusion: 11/16/22 06:55 Dose: 0 mls/hr Documented By: Admin: 11/16/22 05:00 Dose: 100 mls/hr Documented By: Infusion: 11/16/22 04:31 Dose: 100 mls/hr Documented By: Admin: 11/16/22 03:31 Dose: 100 mls/hr Documented By: Infusion: 11/16/22 03:19 Dose: 100 mls/hr Documented By: Admin: 11/16/22 02:19 Dose: 100 mls/hr Documented By: BLAISE Magnesium Sulfate/Dextrose (Magnesium Sulfate / D5w) 1 gm in 100 mls @ 50 mls/hr IV ONE ONE Stop: 11/18/22 09:08 Last Infusion: 11/18/22 11:04 Dose: 0 mls/hr Documented By: Admin: 11/18/22 08:12 Dose: 50 mls/hr Documented By: GEORGINA Ioversol (Optiray 320 125ml) 120 ml IV ONCE ONE Stop: 11/16/22 13:26 Last Admin: 11/16/22 13:25 Dose: 120 ml Documented By: DANIEL Lactulose (Lactulose Syrup 30 Gm/45 Ml Udp) 30 gm PO NOW STA Stop: 11/15/22 17:17 Last Admin: 11/15/22 20:03 Dose: 30 gm Documented By: MATTHIAS Lorazepam (Lorazepam 2 Mg/1 Ml Vial) 2 mg IV NOW STA Stop: 11/15/22 16:44 Last Admin: 11/15/22 16:59 Dose: Not Given Documented By: CAGE CLERK Lorazepam (Lorazepam 2 Mg/1 Ml Vial) Confirm Administered Dose 2 mg .ROUTE .STK- MED ONE Stop: 11/15/22 16:45 Last Admin: 11/15/22 16:56 Dose: Not Given Documented By: CAGE CLERK Lorazepam (Lorazepam 2 Mg/1 Ml Vial) 1 mg IV NOW STA Stop: 11/15/22 17:02 Last Admin: 11/15/22 16:47 Dose: 1 mg Documented By: CAGE CLERK Multivitamins/Minerals (Cerovite Adv Formula Tab) 1 tab PO ONE STA Stop: 11/15/22 19:58 Last Admin: 11/15/22 20:03 Dose: 1 tab Documented By: HH Potassium Chloride (Potassium Chloride Crtab 20 Meq Tabcr) 40 meq PO NOW STA Stop: 11/15/22 20:40 Last Admin: 11/16/22 00:36 Dose: 40 meq Documented By: BRA Potassium Chloride (Potassium Chloride Crtab 20 Meq Tabcr) 20 meq PO NOW STA Stop: 11/16/22 09:15 Last Admin: 11/16/22 09:29 Dose: Not Given Documented By: WRS Potassium Chloride (Potassium Chloride Crtab 20 Meq Tabcr) 40 meq PO NOW STA Stop: 11/18/22 04:33 Last Admin: 11/18/22 04:45 Dose: 40 meq Documented By: GG Potassium Chloride (Potassium Chloride Crtab 20 Meq Tabcr) 40 meq PO NOW STA Stop: 11/18/22 07:09 Last Admin: 11/18/22 08:12 Dose: 40 meq Documented By: CA Potassium Chloride (Potassium Chloride Crtab 20 Meq Tabcr) 20 meq PO ONE ONE Stop: 11/18/22 16:01 Last Admin: 11/18/22 17:30 Dose: 20 meq Documented By: CA Description This is a 21 electrode EEG with a single channel dedicated to limited EKG. The electrodes were placed in accordance with the International 10-20 system. Interpretation REPORT: At the onset of the EEG, the patient is awake. The background activity consist of 9-10 Hz, persistent, posteriorly dominant, moderate amplitude, symmetric and rhythmic activity that is reactive to eye opening. Anteriorly, it consist of a mixture of low voltage indeterminate activity and 15-25 Hz, persistent, low amplitude, symmetric and rhythmic activity. Stepwise intermitten t photic stimulation (1-21 Hz) and hyperventilation (3 minutes, good effort) do not induce any abnormalities. Drowsiness is characterized by low amplitude mixed frequency activity, roving eye movements, and decreased eye blinking and muscle artifact. IMPRESSION: This is a normal awake and drowsy routine EEG. There is no evidence of focal slowing or epileptiform activity.
[2022-11-18] MEDS: CYANOCOBALAMIN 1000 MCG/ML VIAL IM SCH (23:08)
[2022-11-18] MEDS: NICOTINE 21 MG/24 HR TDSY TD SCH (23:08)
[2022-11-19] MEDS: TRIMETHOPRIM/POLYMYXIN B OP SCH ×6 (02:41→21:37)
[2022-11-19] MEDS: METOPROLOL SUCC 25MG EXT REL TAB PO SCH ×2 (03:02→20:08)
[2022-11-19] MEDS: levETIRAcetam 1,000 MG in 0.9 % SODIUM CHLORIDE 100 ML IV SCH ×2 (05:30→17:39)
[2022-11-19 06:01] LABS: Hematocrit (blood only) 31.8 % (42.0-52.0); Hemoglobin 11.2 g/dl (14.0-18.0); Mean Corpuscular Hemoglobin 34.3 pg (25.0-34.0); Mean Corpuscular Hgb Conc 35.2 g/dL (32.0-36.0); Mean Corpuscular Volume 97.2 fL (80.0-100.0); Mean Platelet Volume 8.9 fL (9.4-12.4); Platelet Count 152 K/uL (130-400); RDW Coefficient of Variation 12.5 % (11.5-14.5); RDW Standard Deviation 44.5 fL (36.4-46.3); Red Blood Count 3.27 M/uL (4.70-6.10); White Blood Count 5.05 K/ul (4.8-10.8)
[2022-11-19 06:18] LABS: BUN Creatinine Ratio 15.6 (10-20); Calcium 7.7 mg/dl (8.6-10.3); Est GFR (African American) 127.8 ml/min; Est GFR (Non-African American) 110.2 ml/min; Potassium 3.9 mmol/L (3.5-5.1)
[2022-11-19 07:21] LABS: Lyme Ab IgG w/WB Rflx Negative (Negative); Lyme Ab IgM w/WB Rflx Negative (Negative)
[2022-11-19] MEDS: FOLIC ACID 1 MG TAB PO SCH (09:19)
[2022-11-19] MEDS: HEPARIN SOD 5,000 UNIT/0.5 ML VIAL SQ SCH ×2 (09:19→20:09)
[2022-11-19] MEDS: THIAMINE HCL 100 MG TAB PO SCH (09:19)
[2022-11-19] MEDS ORDERED: POTASSIUM CHLORIDE CRTAB 20 MEQ TABCR PO STA (11:29)
--- NOTE | 2022-11-19 11:29 | Cardiology Progress Note ---
Date of Service November 19, 2022 Assessment & Plan (1) Alcohol abuse with withdrawal: (2) NSVT (nonsustained ventricular tachycardia): (3) Hypokalemia: (4) Hypomagnesemia: (5) Seizure: (6) Acute hyponatremia: (7) Elevated troponin: (8) Aortic regurgitation: (9) Aortic root enlargement: (10) HTN (hypertension): Plan No recurrent ventricular tachycardia overnight. No significant hypoxia per nocturnal pulse oximetry trend. Serum potassium remains below 4.0 today. Recommend additional 20 mEq of oral potassium now. Repeat BMP in AM. Continue beta-kandice, Toprol-XL 25 mg twice daily. Outpatient stress testing Risk factor and lifestyle modification. Cardiology will sign off. Please call with questions. Admission and Anticipated Discharge Date Admission Date: November 15, 2022 Subjective Patient seen and examined at the bedside. Denies chest pain or shortness of breath. Telemetry reveals sinus rhythm. No recurrent ventricular tachycardia. Received supplemental potassium and magnesium yesterday. Toprol-XL added. Patient tolerating. Review of Systems Review of Systems: All systems reviewed & are unremarkable except as noted in Subjective Physical Exam Constitutional: well developed, well nourished and + ill appearing Respiratory: normal respiratory effort; no respiratory distress, no labored breathing and no retractions Auscultation: lungs clear to auscultation bilaterally; no crackles, no rales, no rhonchi and no wheezes Cardiovascular: Rate/Rhythm: regular rate and regular rhythm Heart Sounds: normal S1 and normal S2; no murmur Vessels: radial pulses present; no JVD and no carotid bruit Extremities: no edema Gastrointestinal (Abdomen): Inspection/Auscultation: abdomen normal to inspection and normal bowel sounds; abdomen not distended Percussion/Palpation: abdomen soft; abdomen nontender, no guarding and abdomen not rigid Neurologic: CN's II-XI intact bilaterally and moves all extremities; no focal motor deficits Psychiatric: A+Ox3, euthymic affect Results & Data Vital Signs (Past 12 Hours) Vital Signs Temp Pulse Pulse Resp BP Pulse Ox O2 Del Method 11/19/22 08:03 37.2 C 70 16 164/95 H 98 Room Air 11/19/22 07:20 74 11/19/22 02:47 36.7 C 79 17 180/113 H 98 Room Air 11/19/22 00:54 69 Laboratory Results CBC 11/19/22 Range/Units 05:39 WBC 5.05 (4.8-10.8) K/ul RBC 3.27 L (4.70-6.10) M/uL Hgb 11.2 L (14.0-18.0) g/dl Hct 31.8 L (42.0-52.0) % Plt Count 152 (130-400) K/uL Comprehensive Metabolic Panel 11/18/22 11/19/22 Range/Units 13:54 05:39 Sodium 134 L 131 L (136-145) mmol/L Potassium 4.2 D 3.9 (3.5-5.1) mmol/L Chloride 105 103 (98-107) mmol/L Carbon Dioxide 25 25 (21-32) mmol/L BUN 8 10 (6-23) mg/dl Creatinine 1.13 D 0.64 D (0.6-1.4) mg/dl Glucose 118 H 85 (70-99(Fasting)) mg/dl Calcium 7.8 L 7.7 L (8.6-10.3) mg/dl Intake and Output 11/18/22 11/19/22 11/19/22 22:59 06:59 14:59 Intake Total 820 / 2030 1110 / 2030 Output Total 450 / 1300 450 / 1300 Balance 370 / 730 660 / 730 Intake: IV 110 / 1320 1110 / 1320 Nss + 20Meq KCl 20 meq In 1,000 1000 / 1000 ml @ 50 mls/hr IV .Q20H [facility] Rx #:[id number] levETIRAcetam 1,000 mg In 0.9 % 110 / 220 110 / 220 Sodium Chloride 100 ml @ 440 mls/hr IV Q12H [facility] Rx#:[id number] Oral 710 / 710 Output: Urine 450 / 1300 450 / 1300 Diagnostic Findings ECG: Sinus rhythm, voltage criteria for left ventricular hypertrophy, abnormal ECG. Compared to prior study, borderline criteria for anterolateral infarct no longer present.
[2022-11-19] MEDS ORDERED: GABAPENTIN 600 MG TAB PO SCH (12:00)
[2022-11-19] MEDS: amLODIPine BESYLATE 5 MG TAB PO SCH (12:11)
--- NOTE | 2022-11-19 12:22 | Electrocardiogram Report ---
Test Reason : Blood Pressure : / mmHG Vent. Rate : 078 BPM Atrial Rate : 078 BPM P-R Int : 136 ms QRS Dur : 082 ms QT Int : 390 ms P-R-T Axes : 021 048 065 degrees QTc Int : 444 ms Normal sinus rhythm Voltage criteria for left ventricular hypertrophy Abnormal ECG When compared with ECG of 15-NOV-2022 16:36, Vent. rate has decreased BY 52 BPM Borderline criteria for Anterior infarct are no longer Present Borderline criteria for Anterolateral infarct are no longer Present Confirmed by Piter Mcelroy ([id number]) on 11/19/2022 12:22:38 PM Referred By: REFERRED SELF Confirmed By:Piter Mcelroy
--- NOTE | 2022-11-19 16:22 | Hospitalist Progress Note ---
Date of Service November 19, 2022 Assessment & Plan (1) Alcohol abuse with withdrawal: (2) Seizure: (3) HTN (hypertension): (4) Mood altered: Plan 57 year old admitted in alcohol withdrawal, with syncopal/seizure episodes and concerning anisocoria. Delirium Tremens: Alcohol Abuse: Hypotonic hyponatremia secondary to above Alcohol associated neuropathy Continue alcohol withdrawal protocol-gabapentin, thiamine, folic acid Received Banana bag TSH within fairly normal limits Normal free T4 Monitor sodium levels: 131 today Ammonia level normal Patient refused psychiatry evaluation Continue thiamine, folic acid PT OT as able EMG as outpatient vitamin B6 levels pending Discharge to rehab when accepted Wide-complex tachycardia Hypokalemia, hypomagnesemia Needs outpatient stress test Appreciate cardiology input Risk factor, lifestyle modification Appreciate cardiology input Continue metoprolol 25 mg daily Replete electrolytes as needed Nocturnal hypoxia Reviewed oximetry study We will continue 2 L supplemental oxygen at bedtime Advised sleep study as outpatient Hepatic steatosis Transaminitis --Liver USD:Hepatic steatosis. Gallstones and biliary sludge with no sonographic evidence of acute cholecystitis. Sepsis in setting of alcohol use LFTs trending down Monitor Seizures: Anisocoria: Suspect related to alcohol use/Seizure --Head/Neck CTA:There is no hemorrhage, mass effect, or evidence of acute territorial ischemia by CT criteria. Unremarkable CT angiogram of the brain. Unremarkable CT angiogram of the neck. --MRI Brain:No acute findings in the head/brain. --EEG: This is a normal awake and drowsy routine EEG. There is no evidence of focal slowing or epileptiform activity. 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 DVT Px: Heparin SQ Code Status: Full Code Disposition Rehab when accepted Admission and Anticipated Discharge Date Admission Date: November 15, 2022 Subjective Patient is seen and examined at bedside No new complaints No recurrent DVTs Denies any chest pain, dyspnea, dizziness, nausea, abdominal pain Plan to discharge to rehab when accepted Review of Systems Review of Systems: All systems reviewed & are unremarkable except as noted in Subjective Physical Exam Physical Exam: Physical Exam: Vitals signs as noted above General Appearance:Moderately built and nourished, no apparent distress, Chronic ill appearing Head: normocephalic, Atraumatic Eyes: normal inspection, EOMI Neck: supple, Trachea midline Respiratory/Chest: Normal breath sounds, CTA, No accessory muscle use Cardiovascular: S1, S2, No murmur Abdomen/GI:Soft, Non tender, Bowel sounds present Extremities/Musculoskeletal:normal inspection, no edema, LUE bruises Neurologic/Psych:AAOX3, grossly no focal neurological deficits Skin: normal color, warm Results & Data Results & Data Vital Signs (Past 12 Hours) Vital Signs Temp Pulse Pulse Resp BP Pulse Ox O2 Del Method 11/19/22 15:43 36.7 C 72 18 137/86 97 Room Air 11/19/22 12:00 36.7 C 81 20 164/99 H 99 Room Air 11/19/22 08:03 37.2 C 70 16 164/95 H 98 Room Air 11/19/22 07:20 74 Laboratory Results Short CBC 11/19/22 Range/Units 05:39 WBC 5.05 (4.8-10.8) K/ul Hgb 11.2 L (14.0-18.0) g/dl Hct 31.8 L (42.0-52.0) % Plt Count 152 (130-400) K/uL BMP 11/19/22 05:39 Sodium 131 L Potassium 3.9 Chloride 103 Carbon Dioxide 25 BUN 10 Creatinine 0.64 D Glucose 85 Calcium 7.7 L
[2022-11-19] MEDS: CYANOCOBALAMIN 1000 MCG/ML VIAL IM SCH (23:15)
[2022-11-19] MEDS: NICOTINE 21 MG/24 HR TDSY TD SCH (23:15)
[2022-11-20] MEDS: TRIMETHOPRIM/POLYMYXIN B OP SCH ×6 (03:04→21:26)
[2022-11-20] MEDS: levETIRAcetam 1,000 MG in 0.9 % SODIUM CHLORIDE 100 ML IV SCH ×2 (05:23→18:31)
[2022-11-20 06:36] LABS: Hematocrit (blood only) 34.6 % (42.0-52.0); Hemoglobin 12.5 g/dl (14.0-18.0); Mean Corpuscular Hemoglobin 34.2 pg (25.0-34.0); Mean Corpuscular Hgb Conc 36.1 g/dL (32.0-36.0); Mean Corpuscular Volume 94.8 fL (80.0-100.0); Mean Platelet Volume 9.3 fL (9.4-12.4); Platelet Count 204 K/uL (130-400); RDW Coefficient of Variation 12.4 % (11.5-14.5); RDW Standard Deviation 43.6 fL (36.4-46.3); Red Blood Count 3.65 M/uL (4.70-6.10); White Blood Count 5.09 K/ul (4.8-10.8)
[2022-11-20 07:12] LABS: BUN Creatinine Ratio 15.2 (10-20); Calcium 8.6 mg/dl (8.6-10.3); Creatinine Clr Calc Pharmacy 131.8 ml/min; Est GFR (African American) 126.1 ml/min; Est GFR (Non-African American) 108.8 ml/min; Potassium 4.2 mmol/L (3.5-5.1)
[2022-11-20] MEDS: HEPARIN SOD 5,000 UNIT/0.5 ML VIAL SQ SCH ×2 (08:56→21:25)
[2022-11-20] MEDS: FOLIC ACID 1 MG TAB PO SCH (08:56)
[2022-11-20] MEDS: amLODIPine BESYLATE 5 MG TAB PO SCH (08:56)
[2022-11-20] MEDS: METOPROLOL SUCC 25MG EXT REL TAB PO SCH ×2 (08:57→21:26)
[2022-11-20] MEDS: THIAMINE HCL 100 MG TAB PO SCH (08:57)
--- NOTE | 2022-11-20 16:03 | Hospitalist Progress Note ---
Date of Service November 20, 2022 Assessment & Plan (1) Alcohol abuse with withdrawal: (2) Seizure: (3) HTN (hypertension): (4) Mood altered: Plan 57 year old admitted in alcohol withdrawal, with syncopal/seizure episodes and concerning anisocoria. Delirium Tremens: Alcohol Abuse: Hypotonic hyponatremia secondary to above Alcohol associated neuropathy Continue alcohol withdrawal protocol-gabapentin, thiamine, folic acid Received Banana bag TSH within fairly normal limits Normal free T4 Monitor sodium levels: 132 today Ammonia level normal Patient refused psychiatry evaluation Continue thiamine, folic acid PT OT as able EMG as outpatient vitamin B6 levels pending Waiting for rehab placement Wide-complex tachycardia Hypokalemia, hypomagnesemia Needs outpatient stress test Appreciate cardiology input Risk factor, lifestyle modification Appreciate cardiology input Continue metoprolol 25 mg daily Replete electrolytes as needed No recurrence of VT Nocturnal hypoxia Reviewed oximetry study We will continue 2 L supplemental oxygen at bedtime Advised sleep study as outpatient Hepatic steatosis Transaminitis --Liver USD:Hepatic steatosis. Gallstones and biliary sludge with no sonographic evidence of acute cholecystitis. Sepsis in setting of alcohol use LFTs trending down Monitor Seizures: Anisocoria: Suspect related to alcohol use/Seizure --Head/Neck CTA:There is no hemorrhage, mass effect, or evidence of acute lida torial ischemia by CT criteria. Unremarkable CT angiogram of the brain. Unremarkable CT angiogram of the neck. --MRI Brain:No acute findings in the head/brain. --EEG: This is a normal awake and drowsy routine EEG. There is no evidence of focal slowing or epileptiform activity. 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 DVT Px: Heparin SQ Code Status: Full Code Disposition Rehab when accepted Admission and Anticipated Discharge Date Admission Date: November 15, 2022 Subjective Patient is seen and examined at bedside States feeling well this morning Waiting for rehab placement Denies any chest pain, dyspnea, dizziness, nausea, abdominal pain No recurrence of VT Review of Systems Review of Systems: All systems reviewed & are unremarkable except as noted in Subjective Physical Exam Physical Exam: Physical Exam: Vitals signs as noted above General Appearance:Moderately built and nourished, no apparent distress, Chronic ill appearing Head: normocephalic, Atraumatic Eyes: normal inspection, EOMI Neck: supple, Trachea midline Respiratory/Chest: Normal breath sounds, CTA, No accessory muscle use Cardiovascular: S1, S2, No murmur Abdomen/GI:Soft, Non tender, Bowel sounds present Extremities/Musculoskeletal:normal inspection, no edema, LUE bruises Neurologic/Psych:AAOX3, grossly no focal neurological deficits Skin: normal color, warm Results & Data Results & Data Vital Signs (Past 12 Hours) Vital Signs Temp Pulse Pulse Resp BP Pulse Ox O2 Del Method 11/20/22 15:48 36.7 C 75 16 136/86 98 Room Air 11/20/22 13:51 36.6 C 74 16 119/82 99 Room Air 11/20/22 13:39 79 11/20/22 11:59 37.3 C 75 21 134/79 98 Nasal Cannula 11/20/22 08:00 75 O2 Flow Rate 11/20/22 15:48 11/20/22 13:51 11/20/22 13:39 11/20/22 11:59 2 11/20/22 08:00 Laboratory Results Short CBC 11/20/22 Range/Units 05:22 WBC 5.09 (4.8-10.8) K/ul Hgb 12.5 L (14.0-18.0) g/dl Hct 34.6 L (42.0-52.0) % Plt Count 204 (130-400) K/uL BMP 11/20/22 05:22 Sodium 132 L Potassium 4.2 Chloride 99 Carbon Dioxide 28 BUN 10 Creatinine 0.66 Glucose 82 Calcium 8.6
[2022-11-20] MEDS: NICOTINE 21 MG/24 HR TDSY TD SCH (21:26)
[2022-11-21] MEDS: TRIMETHOPRIM/POLYMYXIN B OP SCH ×6 (02:51→20:43)
[2022-11-21] MEDS: ACETAMINOPHEN 325 MG TAB PO PRN (05:33)
[2022-11-21] MEDS: levETIRAcetam 1,000 MG in 0.9 % SODIUM CHLORIDE 100 ML IV SCH ×2 (05:33→17:43)
[2022-11-21 06:51] LABS: BUN Creatinine Ratio 15.5 (10-20); Calcium 8.6 mg/dl (8.6-10.3); Creatinine Clr Calc Pharmacy 145.5 ml/min; Est GFR (Non-African American) 114.8 ml/min; Potassium 3.6 mmol/L (3.5-5.1)
[2022-11-21] MEDS: amLODIPine BESYLATE 5 MG TAB PO SCH (08:35)
[2022-11-21] MEDS: HEPARIN SOD 5,000 UNIT/0.5 ML VIAL SQ SCH ×2 (08:35→20:43)
[2022-11-21] MEDS: THIAMINE HCL 100 MG TAB PO SCH (08:35)
[2022-11-21] MEDS: METOPROLOL SUCC 25MG EXT REL TAB PO SCH ×2 (08:35→20:42)
[2022-11-21] MEDS: FOLIC ACID 1 MG TAB PO SCH (08:35)
--- NOTE | 2022-11-21 15:51 | Hospitalist Progress Note ---
Date of Service November 21, 2022 Assessment & Plan (1) Alcohol abuse with withdrawal: (2) Seizure: (3) HTN (hypertension): (4) Mood altered: Plan 57 year old admitted in alcohol withdrawal, with syncopal/seizure episodes and concerning anisocoria. Delirium Tremens: Alcohol Abuse: Hypotonic hyponatremia secondary to above Alcohol associated neuropathy vitamin B6 levels pending TSH within fairly normal limits Normal free T4 Completed gabapentin protocol Continue thiamine, folic acid Monitor sodium levels: 132 today Ammonia level normal Patient refused psychiatry evaluation PT/OT recommends acute rehab Needs EMG as outpatient Stable for discharge, waiting for rehab placement Wide-complex tachycardia Hypokalemia, hypomagnesemia Needs outpatient stress test Appreciate cardiology input Risk factor, lifestyle modification Appreciate cardiology input Continue metoprolol 25 mg daily Replete electrolytes as needed No recurrence of VT Nocturnal hypoxia Reviewed oximetry study Will continue 2 L supplemental oxygen at bedtime Advised sleep study as outpatient Hepatic steatosis Transaminitis --Liver USD:Hepatic steatosis. Gallstones and biliary sludge with no sonographic evidence of acute cholecystitis. Sepsis in setting of alcohol use LFTs trended down Monitor Seizures: Anisocoria: Suspect related to alcohol use/Seizure --Head/Neck CTA:There is no hemorrhage, mass effect, or evidence of acute territorial ischemia by CT criteria. Unremarkable CT angiogram of the brain. Unremarkable CT angiogram of the neck. --MRI Brain:No acute findings in the head/brain. --EEG: This is a normal awake and drowsy routine EEG. There is no evidence of focal slowing or epileptiform activity. 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 DVT Px: Heparin SQ Code Status: Full Code Disposition Rehab when accepted Admission and Anticipated Discharge Date Admission Date: November 15, 2022 Subjective Patient is seen and examined at bedside States having poor sleep overnight Offers no other complaints Waiting for rehab placement Denies any chest pain, dyspnea, dizziness, nausea, abdominal pain No recurrence of arrhythmias on monitor Review of Systems Review of Systems: All systems reviewed & are unremarkable except as noted in Subjective Physical Exam Physical Exam: Physical Exam: Vitals signs as noted above General Appearance:Moderately built and nourished, no apparent distress, Chronic ill appearing Head: normocephalic, Atraumatic Eyes: normal inspection, EOMI Neck: supple, Trachea midline Respiratory/Chest: Normal breath sounds, CTA, No accessory muscle use Cardiovascular: S1, S2, No murmur Abdomen/GI:Soft, Non tender, Bowel sounds present Extremities/Musculoskeletal:normal inspection, no edema, LUE bruises Neurologic/Psych:AAOX3, grossly no focal neurological deficits Skin: normal color, warm Results & Data Results & Data Vital Signs (Past 12 Hours) Vital Signs Temp Pulse Pulse Resp BP BP Pulse Ox 11/21/22 15:39 76 11/21/22 11:00 36.8 C 73 18 144/89 H 97 11/21/22 08:00 77 11/21/22 07:00 36.7 C 78 18 142/91 H 97 O2 Del Method 11/21/22 15:39 11/21/22 11:00 Room Air 11/21/22 08:00 11/21/22 07:00 Room Air Laboratory Results [facility] 11/21/22 05:27 Sodium 132 L Potassium 3.6 Chloride 99 Carbon Dioxide 28 BUN 9 Creatinine 0.58 L Glucose 87 Calcium 8.6
[2022-11-21] MEDS: NICOTINE 21 MG/24 HR TDSY TD SCH (20:43)
[2022-11-22] MEDS: TRIMETHOPRIM/POLYMYXIN B OP SCH ×6 (03:22→21:13)
[2022-11-22] MEDS: levETIRAcetam 1,000 MG in 0.9 % SODIUM CHLORIDE 100 ML IV SCH (05:56)
[2022-11-22] MEDS: THIAMINE HCL 100 MG TAB PO SCH (09:02)
[2022-11-22] MEDS: METOPROLOL SUCC 25MG EXT REL TAB PO SCH ×2 (09:02→21:12)
[2022-11-22] MEDS: FOLIC ACID 1 MG TAB PO SCH (09:02)
[2022-11-22] MEDS: amLODIPine BESYLATE 5 MG TAB PO SCH (09:02)
[2022-11-22] MEDS: HEPARIN SOD 5,000 UNIT/0.5 ML VIAL SQ SCH ×2 (09:06→21:13)
[2022-11-22 09:15] LABS: BUN Creatinine Ratio 19.2 (10-20); Calcium 8.4 mg/dl (8.6-10.3); Creatinine Clr Calc Pharmacy 159.1 ml/min; Est GFR (African American) 139.1 ml/min; Est GFR (Non-African American) 120.1 ml/min; Potassium 3.3 mmol/L (3.5-5.1)
[2022-11-22] MEDS ORDERED: POTASSIUM CHLORIDE CRTAB 20 MEQ TABCR PO ONE (09:33)
[2022-11-22] MEDS ORDERED: Nursing to Pharmacy Communication SCH (11:15)
--- NOTE | 2022-11-22 13:41 | Hospitalist Progress Note ---
Date of Service November 22, 2022 Assessment & Plan (1) Alcohol related seizure: Plan: Pt with alcohol related seizure while in the ER. Initially started on Keppra, however, neurology doesn't recommend AEDs given etiology of seizure. Keppra was discontinued. He completed gabapentin protocol for withdrwawl and is no longer exhibiting withdrawal symptoms. --Head/Neck CTA:There is no hemorrhage, mass effect, or evidence of acute territorial ischemia by CT criteria. Unremarkable CT angiogram of the brain. Unremarkable CT angiogram of the neck. --MRI Brain:No acute findings in the head/brain. --EEG: This is a normal awake and drowsy routine EEG. There is no evidence of focal slowing or epileptiform activity. Electrolyte abnormalities corrected throughout his stay. Cont thiamine and folic acid supplementation. Ammonia level normal. Pt refused psychiatric evaluation. Anisocoria initially noted on exam was likely related to post-ictal state. Driving not permitted until cleared by neurology (reported to [facility]) -alcohol cessation recommended. (2) Alcohol abuse with withdrawal: Plan: treated, alcohol cessation recommended. (3) Polyneuropathy: Plan: Alcohol associated neuropathy, A1C screening reveals no evidence of diabetes. TSH within normal limits. B12 deficient and vit D deficient. Poor nutrition overall. vitamin B6 levels pending. Will screen for iron deficiency, also. Notably juany is refusing L spine MRI today after reporting chronic lower back pain which he feels may be contributing to this lower leg neuropathy. (4) Ambulatory dysfunction: Plan: Multifactorial including but not limited to prolonged hospital stay, polyneuropathy (5) B12 deficiency: Plan: Given 5 days of intramuscular B12 shots daily and now continue with oral B12 supplementation. (6) HTN (hypertension): Plan: Elevated BP Likely somewhat related to the situation, however, he was started on amlodipine 5mg PO daily with BP within range. (7) Mood altered: Plan: Depressed Mood: Refused psychiatry evaluation Knot Tier to quit drinking (8) Vitamin D deficiency: Plan: start ergocalciferol now to replete. Would also consider calcium/D supplementation as outpatient. (9) Elevated troponin: Plan: Troponin trended down, likely demand ischemia Echo noted concentric changes, dilated aortic root (mild) (10) NSVT (nonsustained ventricular tachycardia): Plan: Hypokalemia, hypomagnesemia likely contributors and replaced. Notably patient must stop drinking alcohol for the Mg to return to normal. Cardiology saw patient this admission, agrees wt addition of beta kandice. Needs outpatient stress test Cont Risk factor, lifestyle modification. (11) Nocturnal hypoxia: Plan: Nocturnal hypoxia per inpatient oximetry study Will continue 2 L supplemental oxygen at bedtime Advised sleep study as outpatient (12) Transaminitis: Plan: Hepatic steatosis seen on imaging Transaminitis --Liver USD:Hepatic steatosis. Gallstones and biliary sludge with no sonographic evidence of acute cholecystitis. Likely related to alcohol use and fatty liver. LFTs trended down Monitor as outpatient. DVT proph: heparin Full Code Dispo-to rehab when bed available. Medically stable for discharge. I did review the assessment and plan with sister who was at bedside today. All questions were answered to her satisfaction. I spent a total [id number] coordinating, documenting, and providing care for this patient excluding time spent in the performance of separately billed services Елена Burch DO [facility] Hospitalist Admission and Anticipated Discharge Date Admission Date: November 15, 2022 Subjective 57 yo M with h/o alcohol abuse was admitted for alcohol seizure pt states that lower extremities are still numb from the knees down states he has chronic lower back pain per outpatient record review, he saw ortho for right shoulder pain after a fall and MRI shoulder patient declines l spine MRI today consented for HIV testing we reviewed lab work together and restarted B12 supplementation TSH is WNL no further seizures this admission we spoke about the driving restriction placed on his license today Review of Systems Review of Systems: All systems reviewed and negative except as indicated on HPI above Physical Exam Physical Exam: CONSTITUTIONAL: WNWD, vitals as above, generally well-appearing, NAD EYES: normal conjunctivae, no scleral icterus ENT: external ear and nose normal, MMM NECK: trachea midline RESPIRATORY: clear to auscultation bilaterally, no crackles, rales or wheezes, normal respiratory effort CARDIOVASCULAR: regular rate and rhythm, S1 and 2 heard without murmurs, gallops or rubs, no JVD, no peripheral edema CHEST: inspection of chest was normal GASTROINTESTINAL: soft, nontender, MUSCULOSKELETAL: strength 5/5 throughout, specifically 5/5 knee flexion/extension and dorsi/plantar flextion, head is normocephalic and atraumatic SKIN: warm and dry NEUROLOGIC: CN 2-12 grossly intact, +sensory deficit reported in bilateral lower extremities distal to knees. normal cognition, normal speech, no tremor PSYCHIATRIC: alert cooperative and oriented to person, place and time. Euthymic mood, makes good eye contact, language grossly intact, recent and remote memory grossly intact. Results & Data Results & Data Vital Signs (Past 12 Hours) Vital Signs Temp Pulse Resp BP BP Pulse Ox O2 Del Method 11/22/22 11:00 37.1 C 72 18 126/81 98 Room Air 11/22/22 08:57 Nasal Cannula 11/22/22 07:00 36.9 C 73 18 136/87 98 Room Air 11/22/22 03:46 36.7 C 76 18 129/83 99 Room Air Laboratory Results [facility] 11/22/22 08:10 Sodium 132 L Potassium 3.3 L Chloride 99 Carbon Dioxide 26 BUN 10 Creatinine 0.52 L Glucose 88 Calcium 8.4 L Medications Administered Current Inpatient Medications Acetaminophen (Acetaminophen 325 Mg Tab) 650 mg PO Q4H PRN PRN Reason: Pain or Fever Stop: 12/15/22 17:37 Last Admin: 11/21/22 05:33 Dose: 650 mg Amlodipine Besylate (Amlodipine Besylate 5 Mg Tab) 5 mg PO QAM [facility] Stop: 12/19/22 09:44 Last Admin: 11/22/22 09:02 Dose: 5 mg Cyanocobalamin (Cyanocobalamin (B-12) 500 Mcg Tablet) 1,000 mcg PO QAM [facility] Stop: 12/22/22 13:44 Folic Acid (Folic Acid 1 Mg Tab) 1 mg PO QAM [facility] Stop: 12/16/22 08:59 Last Admin: 11/22/22 09:02 Dose: 1 mg Heparin Sodium (Porcine) (Heparin Sod 5,000 Unit/0.5 Ml Vial) 5,000 units SQ Q12 [facility] Stop: 12/18/22 20:59 Last Admin: 11/22/22 09:06 Dose: 5,000 units Metoprolol Succinate (Metoprolol Succ 25mg Ext Rel Tab) 25 mg PO BID [facility] Stop: 12/19/22 02:59 Last Admin: 11/22/22 09:02 Dose: 25 mg Miscellaneous (Remove Nicoderm Patch) 1 each N/A DAILY@2255 [facility] Stop: 12/16/22 08:58 Nicotine (Nicotine 21 Mg/24 Hr Tdsy) 21 mg TD Q24H [facility] Stop: 12/16/22 00:00 Last Admin: 11/21/22 20:43 Dose: 21 mg Ondansetron HCl (Ondansetron Inj 2 Mg/Ml 2 Ml Vial) 4 mg IV Q6H PRN PRN Reason: Nausea Stop: 12/15/22 17:37 Polymyxin/Trimethoprim Sulfate (Trimethoprim/Polymyxin B) 1 drops OP Q4H [facility] Stop: 12/16/22 10:14 Last Admin: 11/22/22 09:08 Dose: 1 drops Thiamine HCl (Thiamine Hcl 100 Mg Tab) 100 mg PO QAM [facility] Stop: 12/16/22 08:59 Last Admin: 11/22/22 09:02 Dose: 100 mg
[2022-11-22] MEDS: CYANOCOBALAMIN (B-12) 500 MCG TABLET PO SCH (15:03)
[2022-11-22 18:55] LABS: Estimated Average Glucose 82 mg/dl; Hemoglobin A1C 4.5 % (4.5-5.6)
[2022-11-22] MEDS: ERGOCALCIFEROL 50,000 UNITS 1250 MCG CAP PO SCH (21:12)
[2022-11-22] MEDS: NICOTINE 21 MG/24 HR TDSY TD SCH (23:05)
[2022-11-23] MEDS: TRIMETHOPRIM/POLYMYXIN B OP SCH ×6 (02:13→21:48)
[2022-11-23] MEDS: CYANOCOBALAMIN (B-12) 500 MCG TABLET PO SCH (09:15)
[2022-11-23] MEDS: HEPARIN SOD 5,000 UNIT/0.5 ML VIAL SQ SCH ×2 (09:15→21:46)
[2022-11-23] MEDS: amLODIPine BESYLATE 5 MG TAB PO SCH (09:15)
[2022-11-23] MEDS: FOLIC ACID 1 MG TAB PO SCH (09:15)
[2022-11-23] MEDS: THIAMINE HCL 100 MG TAB PO SCH (09:16)
[2022-11-23] MEDS: METOPROLOL SUCC 25MG EXT REL TAB PO SCH ×2 (09:16→21:48)
--- NOTE | 2022-11-23 09:46 | Hospitalist Progress Note ---
Date of Service November 23, 2022 Assessment & Plan (1) Alcohol related seizure: Plan: Pt with alcohol related seizure while in the ER. Initially started on Keppra, however, neurology doesn't recommend AEDs given etiology of seizure. Keppra was discontinued. He completed gabapentin protocol for withdrwawl and is no longer exhibiting withdrawal symptoms. --Head/Neck CTA:There is no hemorrhage, mass effect, or evidence of acute territorial ischemia by CT criteria. Unremarkable CT angiogram of the brain. Unremarkable CT angiogram of the neck. --MRI Brain:No acute findings in the head/brain. --EEG: This is a normal awake and drowsy routine EEG. There is no evidence of focal slowing or epileptiform activity. Electrolyte abnormalities corrected throughout his stay. Cont thiamine and folic acid supplementation. Ammonia level normal. Pt refused psychiatric evaluation. Anisocoria initially noted on exam was likely related to post-ictal state. Driving not permitted until cleared by neurology (reported to [facility]) -alcohol cessation recommended. (2) Alcohol abuse with withdrawal: Plan: treated, alcohol cessation recommended. (3) Polyneuropathy: Plan: Alcohol associated neuropathy, A1C screening reveals no evidence of diabetes. TSH within normal limits. B12 deficient and vit D deficient. Replacement continues. Poor nutrition overall. vitamin B6 levels pending. No evidence of iron deficiency. Refused L spine MRI today after reporting chronic lower back pain which he feels may be contributing to this lower leg neuropathy. (4) Ambulatory dysfunction: Plan: Multifactorial including but not limited to prolonged hospital stay, polyneuropathy (5) B12 deficiency: Plan: Given 5 days of intramuscular B12 shots daily and now continue with oral B12 akhtar pplementation. (6) HTN (hypertension): Plan: Elevated BP Likely somewhat related to the situation, however, he was started on amlodipine 5mg PO daily with BP within range. Continue. (7) Mood altered: Plan: Depressed Mood: Refused psychiatry evaluation Brake [employer] to quit drinking (8) Vitamin D deficiency: Plan: start ergocalciferol now to replete. Would also consider calcium/D supplementation as outpatient. (9) Elevated troponin: Plan: Troponin trended down, likely demand ischemia Echo noted concentric changes, dilated aortic root (mild) (10) NSVT (nonsustained ventricular tachycardia): Plan: Hypokalemia, hypomagnesemia likely contributors and replaced. Notably patient must stop drinking alcohol for the Mg to return to normal. Cardiology saw patient this admission, agrees wt addition of beta kandice. Needs outpatient stress test Cont Risk factor, lifestyle modification. (11) Nocturnal hypoxia: Plan: Nocturnal hypoxia per inpatient oximetry study Will continue 2 L supplemental oxygen at bedtime Advised sleep study as outpatient (12) Transaminitis: Plan: Hepatic steatosis seen on imaging Transaminitis --Liver USD:Hepatic steatosis. Gallstones and biliary sludge with no sonographic evidence of acute cholecystitis. Likely related to alcohol use and fatty liver. LFTs trended down Monitor as outpatient. DVT proph: heparin Full Code Dispo-to rehab when bed available. Medically stable for discharge. DO Shane [facility] Admission and Anticipated Discharge Date Admission Date: November 15, 2022 Subjective 57 yo M with h/o alcohol abuse was admitted for alcohol seizure pt states that lower extremities are still numb from the knees down he was sleeping when I arrived and was upset after waking up He reports the food "sucks", "lunch sucked" Everything "just sucks" He reports being tired today because he doesn't sleep at night. No other complaints or issues today Physical Exam Physical Exam: CONSTITUTIONAL: WNWD, vitals as above, generally well-appearing, NAD EYES: normal conjunctivae, no scleral icterus ENT: external ear and nose normal, MMM NECK: trachea midline RESPIRATORY: clear to auscultation bilaterally, no crackles, rales or wheezes, normal respiratory effort CARDIOVASCULAR: regular rate and rhythm, S1 and 2 heard without murmurs, gallops or rubs, no JVD, no peripheral edema CHEST: inspection of chest was normal GASTROINTESTINAL: soft, nontender, MUSCULOSKELETAL: no gross focal deficits, head is normocephalic and atraumatic SKIN: warm and dry NEUROLOGIC: CN 2-12 grossly intact, +sensory deficit reported in bilateral lower extremities distal to knees. normal cognition, normal speech, no tremor PSYCHIATRIC: alert and oriented, answering questions appropriately. Euthymic mood, makes good eye contact, language grossly intact, recent and remote memory grossly intact. Results & Data Results & Data Vital Signs (Past 12 Hours) Vital Signs Temp Pulse Resp BP Pulse Ox O2 Del Method 11/23/22 07:46 36.8 C 78 16 149/89 H 97 Room Air 11/23/22 05:01 36.9 C 78 18 152/89 H 99 Room Air 11/22/22 23:04 36.7 C 74 18 137/88 100 Room Air 11/22/22 22:45 Room Air Laboratory Results Short CBC 11/23/22 Range/Units 09:38 WBC 5.14 (4.8-10.8) K/ul Hgb 12.7 L (14.0-18.0) g/dl Hct 36.0 L (42.0-52.0) % Plt Count 362 (130-400) K/uL BMP 11/23/22 09:38 Sodium 134 L Potassium 3.4 L Chloride 101 Carbon Dioxide 27 BUN 10 Creatinine 0.63 Glucose 103 H Calcium 8.6 Medications Administered Current Inpatient Medications Acetaminophen (Acetaminophen 325 Mg Tab) 650 mg PO Q4H PRN PRN Reason: Pain or Fever Stop: 12/15/22 17:37 Last Admin: 11/21/22 05:33 Dose: 650 mg Amlodipine Besylate (Amlodipine Besylate 5 Mg Tab) [facility] Stop: 12/19/22 09:44 Last Admin: 11/23/22 09:15 Dose: 5 mg Cyanocobalamin (Cyanocobalamin (B-12) 500 Mcg Tablet) 1,000 mcg PO QAM [facility] Stop: 12/22/22 13:44 Last Admin: 11/23/22 09:15 Dose: 1,000 mcg Ergocalciferol (Ergocalciferol 50,000 Units 1250 Mcg Cap) 50,000 units PO Q4D@0900 [facility] Stop: 12/22/22 19:09 Last Admin: 11/22/22 21:12 Dose: 50,000 units Folic Acid (Folic Acid 1 Mg Tab) 1 mg PO QAM [facility] Stop: 12/16/22 08:59 Last Admin: 11/23/22 09:15 Dose: 1 mg Heparin Sodium (Porcine) (Heparin Sod 5,000 Unit/0.5 Ml Vial) 5,000 units SQ Q12 [facility] Stop: 12/18/22 20:59 Last Admin: 11/23/22 09:15 Dose: 5,000 units Metoprolol Succinate (Metoprolol Succ 25mg Ext Rel Tab) 25 mg PO BID [facility] Stop: 12/19/22 02:59 Last Admin: 11/23/22 09:16 Dose: 25 mg Miscellaneous (Remove Nicoderm Patch) 1 each N/A DAILY@2256 [facility] Stop: 12/16/22 08:58 Last Admin: 11/22/22 21:13 Dose: 1 each Nicotine (Nicotine 21 Mg/24 Hr Tdsy) 21 mg TD Q24H [facility] Stop: 12/16/22 00:00 Last Admin: 11/22/22 23:05 Dose: 21 mg Ondansetron HCl (Ondansetron Inj 2 Mg/Ml 2 Ml Vial) 4 mg IV Q6H PRN PRN Reason: Nausea Stop: 12/15/22 17:37 Polymyxin/Trimethoprim Sulfate (Trimethoprim/Polymyxin B) 1 drops OP Q4H [facility] Stop: 12/16/22 10:14 Last Admin: 11/23/22 09:15 Dose: 1 drops Thiamine HCl (Thiamine Hcl 100 Mg Tab) 100 mg PO QAM [facility] Stop: 12/16/22 08:59 Last Admin: 11/23/22 09:16 Dose: 100 mg
[2022-11-23 10:01] LABS: Hemoglobin 12.7 g/dl (14.0-18.0); Mean Corpuscular Hemoglobin 34.6 pg (25.0-34.0); Mean Corpuscular Hgb Conc 35.3 g/dL (32.0-36.0); Mean Corpuscular Volume 98.1 fL (80.0-100.0); Mean Platelet Volume 8.6 fL (9.4-12.4); Platelet Count 362 K/uL (130-400); RDW Coefficient of Variation 12.8 % (11.5-14.5); RDW Standard Deviation 46.2 fL (36.4-46.3); Red Blood Count 3.67 M/uL (4.70-6.10); White Blood Count 5.14 K/ul (4.8-10.8)
[2022-11-23 10:18] LABS: BUN Creatinine Ratio 15.9 (10-20); Calcium 8.6 mg/dl (8.6-10.3); Creatinine Clr Calc Pharmacy 131.4 ml/min; Est GFR (African American) 128.6 ml/min; Est GFR (Non-African American) 110.9 ml/min; Phosphorus 3.1 mg/dl (2.5-4.9); Potassium 3.4 mmol/L (3.5-5.1)
[2022-11-23 10:38] LABS: Ferritin 619.3 ng/ml (8-388)
[2022-11-23] MEDS: NICOTINE 21 MG/24 HR TDSY TD SCH (23:14)
[2022-11-24] MEDS: TRIMETHOPRIM/POLYMYXIN B OP SCH ×6 (03:00→22:11)
[2022-11-24] MEDS: METOPROLOL SUCC 25MG EXT REL TAB PO SCH ×2 (08:22→22:12)
[2022-11-24] MEDS: FOLIC ACID 1 MG TAB PO SCH (08:22)
[2022-11-24] MEDS: THIAMINE HCL 100 MG TAB PO SCH (08:22)
[2022-11-24] MEDS: HEPARIN SOD 5,000 UNIT/0.5 ML VIAL SQ SCH ×2 (08:23→22:12)
[2022-11-24] MEDS: amLODIPine BESYLATE 5 MG TAB PO SCH (08:23)
[2022-11-24] MEDS: CYANOCOBALAMIN (B-12) 500 MCG TABLET PO SCH (08:23)
--- NOTE | 2022-11-24 13:44 | Magnetic Resonance Report ---
MRI OF THE LUMBAR SPINE WITHOUT CONTRAST CLINICAL HISTORY: Recent fall. Low back pain, bilateral leg numbness COMPARISON STUDY: No previous studies for comparison. TECHNIQUE: Utilizing a 1.5 Gilda magnet and dedicated coil, multiplanar, multiecho imaging of the [facility] spine was performed without IV contrast. FINDINGS: For purposes of numbering on this exam, the L5-S1 disc space is assigned to axial image 35 of 44. The re is a transitional vertebra at the lumbosacral junction which is designated as S1 for purposes of n umbering on this exam and there is a small disc space at the S1-S2 level.. There is 9 mm of anterolis thesis of L4 on L5 due to bilateral L4 pars defects. Note is made of a moderate compression fracture of L1. There is slight increased T2 signal along the superior endplate. There is a moderate compressi on fracture of the inferior endplate of L2 with minimal marrow edema. There is a moderate L3 compress ion fracture with 70% loss of vertebral body height centrally. There is no significant marrow edema. There is moderate loss of height of the superior endplate of L4. No retropulsion related to compressi on fractures is noted. Discogenic changes at the L4-L5 level are present. Paravertebral soft tissues are unremarkable. The conus terminates at the upper L2 level. Incidental note is made of a fatty filu m terminale. Presacral edema is present. Note is made of a partially visualized nondisplaced left sac ral ala fracture. This is probably acute to subacute. L1-2: The central canal and neural foramen are patent. L2-3: There is mild disc space narrowing with disc bulge, facet arthrosis and ligamentous hypertrophy . The central canal and neural foramen are patent. L3-4: There is moderate facet arthrosis with ligamentous hypertrophy. There is mild disc bulge. There is mild narrowing of the central canal and lateral recesses. There is moderate bilateral neural fora daxa stenosis. L4-5: Anterolisthesis is noted due to bilateral L5 pars defects. There is uncovering of the disc. Sev ere facet arthrosis is noted. There is moderate central canal stenosis. Patent AP diameter canal is 6 .3 mm. There is moderate narrowing of the lateral recesses and severe narrowing of the bilateral neur al foramen. L5-S1: There is mild facet arthrosis. There is mild disc space narrowing with disc bulge. Central can al is patent. There is mild narrowing of the lateral recesses and moderate narrowing of the right shona ral foramen. IMPRESSION: 1. L4 compression fracture, likely subacute to acute. L1 and L2 compression fractures, likely subacut e to chronic. Chronic L3 compression fracture with 70% loss of vertebral body height centrally. No re tropulsion. 2. Nondisplaced left sacral ala fracture, likely acute to subacute. 3. Grade I anterolisthesis of L4 and L5 due to bilateral L5 for pars defects. Moderate central canal stenosis and severe bilateral neural foraminal stenosis at this level, as described above. 4. Overall, moderate multilevel degenerative changes within the lumbar spine. 5. Transitional vertebra at the lumbosacral junction. Please see above numbering scheme of the lumbar spine. ACT 112: Negative or not required by law. Electronically signed by: Norman Harris M.D. 11/24/2022 1:42 PM
--- NOTE | 2022-11-24 15:19 | Hospitalist Progress Note ---
Date of Service November 24, 2022 Assessment & Plan (1) Compression fracture of L4 vertebra: Plan: MRI L spine shows 1. L4 compression fracture, likely subacute to acute. L1 and L2 compression fractures, likely subacute to chronic. Chronic L3 compression fracture with 70% loss of vertebral body height centrally. No retropulsion. 2. Nondisplaced left sacral ala fracture, likely acute to subacute. 3. Grade I anterolisthesis of L4 and L5 due to bilateral L5 for pars defects. Moderate central canal stenosis and severe bilateral neural foraminal stenosis at this level, as described above. 4. Overall, moderate multilevel degenerative changes within the lumbar spine. 5. Transitional vertebra at the lumbosacral junction. [facility] consulted for further recommendations. (2) Alcohol related seizure: Plan: Pt with alcohol related seizure while in the ER. Initially started on Keppra, however, neurology doesn't recommend AEDs given etiology of seizure. Keppra was discontinued. He completed gabapentin protocol for withdrawal and is no longer exhibiting withdrawal symptoms. --Head/Neck CTA:There is no hemorrhage, mass effect, or evidence of acute territorial ischemia by CT criteria. Unremarkable CT angiogram of the brain. Unremarkable CT angiogram of the neck. --MRI Brain:No acute findings in the head/brain. --EEG: This is a normal awake and drowsy routine EEG. There is no evidence of focal slowing or epileptiform activity. Electrolyte abnormalities corrected throughout his stay. Cont thiamine and folic acid supplementation. Ammonia level normal. Pt refused psychiatric evaluation. Anisocoria initially noted on exam was likely related to post-ictal state. Driving not permitted until cleared by neurology (reported to [facility]) --alcohol cessation recommended. (3) Alcohol abuse with withdrawal: Plan: treated, alcohol cessation recommended. (4) Polyneuropathy: Plan: MRI L spine noted as above with neuroforaminal stenosis which is likely contributing along with alcohol abuse and B12 def.. -Recommend alcohol cessation -B12 deficient and vit D deficient. Continue supplementation -vitamin B6 levels pending. (5) Ambulatory dysfunction: Plan: Multifactorial including but not limited to prolonged hospital stay, polyneuropathy (6) B12 deficiency: Plan: Given 5 days of intramuscular B12 shots daily a week ago and now on daily oral B12 supplementation. We will give 1 dose IM B12 since last was a week ago. (7) Vitamin D deficiency: Plan: started on high-dose ergocalciferol. Follow-up as outpatient with PCP for maintenance vitamin D once repletion completed (8) HTN (hypertension): Plan: Started on amlodipine 5 Mg daily, continue (9) Mood altered: Plan: Depressed Mood: Refused psychiatry evaluation; Counseled to quit drinking (10) Elevated troponin: Plan: Troponin trended down, likely demand ischemia. Echo noted concentric changes, dilated aortic root (mild) (11) NSVT (nonsustained ventricular tachycardia): Plan: Hypokalemia, hypomagnesemia likely contributors and replaced. Notably patient must stop drinking alcohol for the Mg to return to normal. Cardiology saw patient this admission, agrees with addition of beta kandice. Needs outpatient stress test. Continue risk factor, lifestyle modification. (12) Nocturnal hypoxia: Plan: Nocturnal hypoxia per inpatient oximetry study Will continue 2 L supplemental oxygen at bedtime Advised sleep study as outpatient (13) Transaminitis: Plan: Hepatic steatosis seen on imaging Transaminitis --Liver USD:Hepatic steatosis. Gallstones and biliary sludge with no sonographic evidence of acute cholecystitis. Likely related to alcohol use and fatty liver. LFTs trended down Monitor as outpatient. DVT prophylaxis: Subcu heparin Dispo-patient was declined by [facility] and P2P review to be done tomorrow. Ortho evaluation pending for compression fractures Admission and Anticipated Discharge Date Admission Date: November 15, 2022 Subjective Patient was seen and examined at bedside. States he feels numb below his knees which has not improved. His numbness has been affecting his ambulation and he has been using walker. Patient states he used to drink a lot, but now he drinks about 6 beers on weekends, he cannot tell me when he stopped heavy drinking. He also tells me he never refused imaging of the back. No fever, chills, chest pain, shortness of breath, nausea or vomiting Review of Systems Review of Systems: All systems reviewed & are unremarkable except as noted in Subjective Physical Exam Physical Exam: General: Unkempt, lying comfortably in bed watching TV, not in distress, on room air HEENT: EOMI, MARISOL, MMM Chest: Clear breath sounds bilaterally, no wheezes or crackles CVS: Regular rate and rhythm, normal heart sounds, no murmur Abdomen: Soft, non tender, not distended, normal bowel sounds Neuro: Awake, alert, oriented, conversing well. Decreased sensation on bilateral lower leg below knee, strength 5/5 Extremities: No cyanosis, clubbing or edema Results & Data Results & Data Vital Signs (Past 12 Hours) Vital Signs Temp Pulse Resp BP Pulse Ox O2 Del Method 11/24/22 14:53 37.4 C 74 16 130/87 100 Room Air 11/24/22 07:00 36.7 C 81 18 157/97 H 96 Room Air Diagnostic Findings Lumbar Spine MRI 11/24/22 11:45 MRI OF THE LUMBAR SPINE WITHOUT CONTRAST CLINICAL HISTORY: Recent fall. Low back pain, bilateral leg numbness COMPARISON STUDY: No previous studies for comparison. TECHNIQUE: Utilizing a 1.5 Gilda magnet and dedicated coil, multiplanar, multiecho imaging of the lumbar spine was performed without IV contrast. FINDINGS: For purposes of numbering on this exam, the L5-S1 disc space is assigned to axial image 35 of 44. There is a transitional vertebra at the lumbosacral junction which is designated as S1 for purposes of numbering on this exam and there is a small disc space at the S1-S2 level.. There is 9 mm of anterolisthesis of L4 on L5 due to bilateral L4 pars defects. Note is made of a moderate compression fracture of L1. There is slight increased T2 signal along the superior endplate. There is a moderate compression fracture of the inferior endplate of L2 with minimal marrow edema. There is a moderate L3 compression fracture with 70% loss of vertebral body height centrally. There is no significant marrow edema. There is moderate loss of height of the superior endplate of L4. No retropulsion related to compression fractures is noted. Discogenic changes at the L4-L5 level are present. Paravertebral soft tissues are unremarkable. The conus terminates at the upper L2 level. Incidental note is made of a fatty filum terminale. Presacral edema is present. Note is made of a partially visualized nondisplaced left sacral ala fracture. This is probably acute to subacute. L1-2: The central canal and neural foramen are patent. L2-3: There is mild disc space narrowing with disc bulge, facet arthrosis and ligamentous hypertrophy. The central canal and neural foramen are patent. L3-4: There is moderate facet arthrosis with ligamentous hypertrophy. There is mild disc bulge. There is mild narrowing of the central canal and lateral recesses. There is moderate bilateral neural foraminal stenosis. L4-5: Anterolisthesis is noted due to bilateral L5 pars defects. There is uncovering of the disc. Severe facet arthrosis is noted. There is moderate central canal stenosis. Patent AP diameter canal is 6.3 mm. There is moderate narrowing of the lateral recesses and severe narrowing of the bilateral neural foramen. L5-S1: There is mild facet arthrosis. There is mild disc space narrowing with disc bulge. Central canal is patent. There is mild narrowing of the lateral recesses and moderate narrowing of the right neural foramen. IMPRESSION: 1. L4 compression fracture, likely subacute to acute. L1 and L2 compression fractures, likely subacute to chronic. Chronic L3 compression fracture with 70% loss of vertebral body height centrally. No retropulsion. 2. Nondisplaced left sacral ala fracture, likely acute to subacute. 3. Grade I anterolisthesis of L4 and L5 due to bilateral L5 for pars defects. Moderate central canal stenosis and severe bilateral neural foraminal stenosis at this level, as described above. 4. Overall, moderate multilevel degenerative changes within the lumbar spine. 5. Transitional vertebra at the lumbosacral junction. Please see above numbering scheme of the lumbar spine. ACT 112: Negative or not required by law. Electronically signed by: Norman Harris M.D. 11/24/2022 1:42 PM
[2022-11-24] MEDS: NICOTINE 21 MG/24 HR TDSY TD SCH (23:27)
[2022-11-25] MEDS: TRIMETHOPRIM/POLYMYXIN B OP SCH ×6 (02:20→20:37)
[2022-11-25 05:55] LABS: Hematocrit (blood only) 35.1 % (42.0-52.0); Hemoglobin 12.5 g/dl (14.0-18.0); Mean Corpuscular Hemoglobin 34.2 pg (25.0-34.0); Mean Corpuscular Hgb Conc 35.6 g/dL (32.0-36.0); Mean Corpuscular Volume 95.9 fL (80.0-100.0); Mean Platelet Volume 8.6 fL (9.4-12.4); Platelet Count 437 K/uL (130-400); RDW Coefficient of Variation 12.7 % (11.5-14.5); RDW Standard Deviation 45.2 fL (36.4-46.3); Red Blood Count 3.66 M/uL (4.70-6.10); White Blood Count 7.07 K/ul (4.8-10.8)
[2022-11-25 06:11] LABS: BUN Creatinine Ratio 18.6 (10-20); Calcium 8.7 mg/dl (8.6-10.3); Creatinine Clr Calc Pharmacy 140.3 ml/min; Est GFR (African American) 132.1 ml/min; Magnesium 1.9 mg/dl (1.7-2.4); Phosphorus 3.9 mg/dl (2.5-4.9); Potassium 3.6 mmol/L (3.5-5.1)
[2022-11-25] MEDS: METOPROLOL SUCC 25MG EXT REL TAB PO SCH ×2 (08:39→20:37)
[2022-11-25] MEDS: THIAMINE HCL 100 MG TAB PO SCH (08:40)
[2022-11-25] MEDS: FOLIC ACID 1 MG TAB PO SCH (08:40)
[2022-11-25] MEDS: CYANOCOBALAMIN (B-12) 500 MCG TABLET PO SCH (08:40)
[2022-11-25] MEDS: amLODIPine BESYLATE 5 MG TAB PO SCH (08:41)
[2022-11-25] MEDS: HEPARIN SOD 5,000 UNIT/0.5 ML VIAL SQ SCH ×2 (08:41→20:37)
[2022-11-25] MEDS ORDERED: CYANOCOBALAMIN 1000 MCG/ML VIAL IM SCH (09:00)
--- NOTE | 2022-11-25 10:09 | Orthopedic Consultation ---
Date of Consultation November 25, 2022 Assessment & Plan (1) Compression fracture of L4 vertebra: MRI lumbar spine does demonstrate evidence of old and new compression fractures. There is superior endplate fracture of L4. There is anterolisthesis L4-5 with significant bilateral neuroforaminal disease. There is no severe central stenosis. At this point he is relatively comfortable. I have ordered an LSO brace that he can wear with ambulation. I will consult physical therapy and see if and get him ambulating the halls. I would not recommend any surgical invention in light of his health history and malnourished condition. He understands agrees. History of Present Illness Reason for Consultation: Back pain Attending Physician: Christian Ngo MD History of Present Illness This is a pleasant 57-year-old male that is here for multiple medical issues as well as alcohol withdrawal that has been diagnosed with a compression fracture. He states that he has some back pain with motion but is not limited in nature. He describes numbness from his knees down. It is the entire leg and not in a clear dermatomal pattern consistent with neuropathy. He states he is has been able to up and ambulate to the bathroom without limitation as long as he has assistance. Allergies Allergy/AdvReac Type Severity Reaction Status Date / Time No Known Allergies Allergy Unverified 11/15/22 15:49 Home Medications Medication Instructions Recorded Confirmed Type No Known Home Medications 11/15/22 11/15/22 History Patient History Medical History Alcohol abuse with withdrawal HTN (hypertension) Mood altered No pertinent family history No pertinent past medical history Seizure Surgical History No pertinent past surgical history Social History Smoking Status: Never smoker Do You Dip or Chew Tobacco: No; Hx Alcohol Use: Yes Alcohol type: beer Alcohol Intake Frequency: 2-3 x/Week Alcohol Intake Frequency Comment: Binge Drinker on the weekends Hx Substance Use: No Preferred Language: German Communication Ability: Effective Chef French Required: No Beliefs That Will Affect Care: None Current Living Situation: Alone Current Living Situation Comment: home alone Other Information That Helps Us Care for You: No Feels Safe at Home: Yes Safety Concerns: Feels Safe At This Time Assistive Devices: None Physical Exam Physical Exam: On exam he is comfortable lying in bed. Is +5-5 plantarflexion dorsiflexion with decree sensation lower extremities. Results & Data Vital Signs (Past 12 Hours) Vital Signs Temp Pulse Resp BP Pulse Ox O2 Del Method 11/25/22 07:30 Room Air 11/25/22 07:05 36.7 C 78 18 129/82 100 Room Air
--- NOTE | 2022-11-25 16:38 | Hospitalist Progress Note ---
Date of Service November 25, 2022 Assessment & Plan (1) Compression fracture of L4 vertebra: Plan: MRI L spine shows 1. L4 compression fracture, likely subacute to acute. L1 and L2 compression fractures, likely subacute to chronic. Chronic L3 compression fracture with 70% loss of vertebral body height centrally. No retropulsion. 2. Nondisplaced left sacral ala fracture, likely acute to subacute. 3. Grade I anterolisthesis of L4 and L5 due to bilateral L5 for pars defects. Moderate central canal stenosis and severe bilateral neural foraminal stenosis at this level, as described above. 4. Overall, moderate multilevel degenerative changes within the lumbar spine. 5. Transitional vertebra at the lumbosacral junction. Seen by Dr. Anderson-recommended LSO brace with ambulation, physical therapy-did not recommend surgical intervention given his health history and malnourished status. (2) Alcohol related seizure: Plan: Pt with alcohol related seizure while in the ER. Initially started on Keppra, however, neurology doesn't recommend AEDs given etiology of seizure. Keppra was discontinued. He completed gabapentin protocol for withdrawal and is no longer exhibiting withdrawal symptoms. --Head/Neck CTA:There is no hemorrhage, mass effect, or evidence of acute territorial ischemia by CT criteria. Unremarkable CT angiogram of the brain. Unremarkable CT angiogram of the neck. --MRI Brain:No acute findings in the head/brain. --EEG: This is a normal awake and drowsy routine EEG. There is no evidence of focal slowing or epileptiform activity. Electrolyte abnormalities corrected throughout his stay. Cont thiamine and folic acid supplementation. Ammonia level normal. Pt refused psychiatric evaluation. Anisocoria initially noted on exam was likely related to post-ictal state. Driving not permitted until cleared by neurology (reported to [facility]) --alcohol cessation recommended. (3) Alcohol abuse with withdrawal: Plan: treated, alcohol cessation recommended. (4) Polyneuropathy: Plan: Likely related to his alcohol abuse and B12 def. May also be contributed by his lumbar spinal findings as above -Recommend alcohol cessation -B12 deficient and vit D deficient. Continue supplementation -vitamin B6 levels pending. (5) Ambulatory dysfunction: Plan: Multifactorial including but not limited to prolonged hospital stay, polyneuropathy (6) B12 deficiency: Plan: Given 5 days of intramuscular B12 shots daily a week ago and now on daily oral B12 supplementation. We will give 1 dose IM B12 since last was a week ago. (7) Vitamin D deficiency: Plan: started on high-dose ergocalciferol. Follow-up as outpatient with PCP for maintenance vitamin D once repletion completed (8) HTN (hypertension): Plan: Started on amlodipine 5 Mg daily, continue (9) Mood altered: Plan: Depressed Mood: Refused psychiatry evaluation; Counseled to quit drinking (10) Elevated troponin: Plan: Troponin trended down, likely demand ischemia. Echo noted concentric changes, dilated aortic root (mild) (11) NSVT (nonsustained ventricular tachycardia): Plan: Hypokalemia, hypomagnesemia likely contributors and replaced. Notably patient must stop drinking alcohol for the Mg to return to normal. Cardiology saw patient this admission, agrees with addition of beta kandice. Needs outpatient stress test. Continue risk factor, lifestyle modification. (12) Nocturnal hypoxia: Plan: Nocturnal hypoxia per inpatient oximetry study Will continue 2 L supplemental oxygen at bedtime Advised sleep study as outpatient (13) Transaminitis: Plan: Hepatic steatosis seen on imaging Transaminitis --Liver USD:Hepatic steatosis. Gallstones and biliary sludge with no sonographic evidence of acute cholecystitis. Likely related to alcohol use and fatty liver. LFTs trended down Monitor as outpatient. DVT prophylaxis: Subcu heparin [id number] done today-declined for acute rehab. Patient agreeable for subacute rehab. CM to make referrals. Awaiting LSO brace, otherwise stable for discharge. Admission and Anticipated Discharge Date Admission Date: November 15, 2022 Subjective Patient was seen and examined at bedside. No new issues. He was seen by orthopedics for his lumbar compression fractures and recommended brace and physical therapy but no surgical intervention. I did peer to peer review with his insurance company regarding denial for acute rehab but it was upheld. I spoke to the patient at bedside regarding subacute rehab and he is agreeable. I have informed apprenticeship training representative to look into subacute rehab options. No fever, chills, chest pain, shortness of breath nausea or vomiting Review of Systems Review of Systems: All systems reviewed & are unremarkable except as noted in Subjective Physical Exam Physical Exam: General: Unkempt, lying comfortably in bed watching TV, not in distress, on room air HEENT: EOMI, MARISOL, MMM Chest: Clear breath sounds bilaterally, no wheezes or crackles CVS: Regular rate and rhythm, normal heart sounds, no murmur Abdomen: Soft, non tender, not distended, normal bowel sounds Neuro: Awake, alert, oriented, conversing well. Decreased sensation on bilateral lower leg below knee, strength 5/5 Extremities: No cyanosis, clubbing or edema Results & Data Results & Data Vital Signs (Past 12 Hours) Vital Signs Temp Pulse Resp BP Pulse Ox O2 Del Method 11/25/22 14:32 36.8 C 84 16 116/81 100 Room Air 11/25/22 07:30 Room Air 11/25/22 07:05 36.7 C 78 18 129/82 100 Room Air Laboratory Results Short CBC 11/25/22 Range/Units 05:31 WBC 7.07 (4.8-10.8) K/ul Hgb 12.5 L (14.0-18.0) g/dl Hct 35.1 L (42.0-52.0) % Plt Count 437 H (130-400) K/uL BMP 11/25/22 05:31 Sodium 133 L Potassium 3.6 Chloride 102 Carbon Dioxide 27 BUN 11 Creatinine 0.59 L Glucose 94 Calcium 8.7 Medications Administered Current Inpatient Medications Acetaminophen (Acetaminophen 325 Mg Tab) 650 mg PO Q4H PRN PRN Reason: Pain or Fever Stop: 12/15/22 17:37 Last Admin: 11/21/22 05:33 Dose: 650 mg Amlodipine Besylate (Amlodipine Besylate 5 Mg Tab) 5 mg PO [facility] Stop: 12/19/22 09:44 Last Admin: 11/25/22 08:41 Dose: 5 mg Cyanocobalamin (Cyanocobalamin (B-12) 500 Mcg Tablet) [facility] [place] Stop: 12/22/22 13:44 Last Admin: 11/25/22 08:40 Dose: 1,000 mcg Ergocalciferol (Ergocalciferol 50,000 Units 1250 Mcg Cap) 50,000 units PO Q4D@0900 [facility] Stop: 12/22/22 19:09 Last Admin: 11/22/22 21:12 Dose: 50,000 units Folic Acid (Folic Acid 1 Mg Tab) [facility] [place] Stop: 12/16/22 08:59 Last Admin: 11/25/22 08:40 Dose: 1 mg Heparin Sodium (Porcine) (Heparin Sod 5,000 Unit/0.5 Ml Vial) 5,000 units SQ Q12 [facility] Stop: 12/18/22 20:59 Last Admin: 11/25/22 08:41 Dose: 5,000 units Metoprolol Succinate (Metoprolol Succ 25mg Ext Rel Tab) 25 mg PO BID [facility] Stop: 12/19/22 02:59 Last Admin: 11/25/22 08:39 Dose: 25 mg Miscellaneous (Remove Nicoderm Patch) 1 each N/A DAILY@2251 [facility] Stop: 12/16/22 08:58 Last Admin: 11/24/22 22:14 Dose: 1 each Nicotine (Nicotine 21 Mg/24 Hr Tdsy) 21 mg TD Q24H [facility] Stop: 12/16/22 00:00 Last Admin: 11/24/22 23:27 Dose: 21 mg Ondansetron HCl (Ondansetron Inj 2 Mg/Ml 2 Ml Vial) 4 mg IV Q6H PRN PRN Reason: Nausea Stop: 12/15/22 17:37 Polymyxin/Trimethoprim Sulfate (Trimethoprim/Polymyxin B) 1 drops OP Q4H [facility] Stop: 12/16/22 10:14 Last Admin: 11/25/22 13:56 Dose: 1 drops Thiamine HCl (Thiamine Hcl 100 Mg Tab) 100 mg PO QAM [facility] Stop: 12/16/22 08:59 Last Admin: 11/25/22 08:40 Dose: 100 mg
[2022-11-25] MEDS: NICOTINE 21 MG/24 HR TDSY TD SCH (20:38)
[2022-11-26] MEDS: TRIMETHOPRIM/POLYMYXIN B OP SCH ×6 (02:02→21:40)
[2022-11-26] MEDS: amLODIPine BESYLATE 5 MG TAB PO SCH (08:14)
[2022-11-26] MEDS: THIAMINE HCL 100 MG TAB PO SCH (08:15)
[2022-11-26] MEDS: CYANOCOBALAMIN (B-12) 500 MCG TABLET PO SCH (08:16)
[2022-11-26] MEDS: ERGOCALCIFEROL 50,000 UNITS 1250 MCG CAP PO SCH (08:16)
[2022-11-26] MEDS: FOLIC ACID 1 MG TAB PO SCH (08:16)
[2022-11-26] MEDS: METOPROLOL SUCC 25MG EXT REL TAB PO SCH ×2 (08:17→21:39)
[2022-11-26] MEDS: HEPARIN SOD 5,000 UNIT/0.5 ML VIAL SQ SCH (08:18)
[2022-11-26] MEDS: ACETAMINOPHEN 325 MG TAB PO PRN (14:17)
--- NOTE | 2022-11-26 15:55 | Hospitalist Progress Note ---
Date of Service November 26, 2022 Assessment & Plan (1) Compression fracture of L4 vertebra: Plan: MRI L spine shows 1. L4 compression fracture, likely subacute to acute. L1 and L2 compression fractures, likely subacute to chronic. Chronic L3 compression fracture with 70% loss of vertebral body height centrally. No retropulsion. 2. Nondisplaced left sacral ala fracture, likely acute to subacute. 3. Grade I anterolisthesis of L4 and L5 due to bilateral L5 for pars defects. Moderate central canal stenosis and severe bilateral neural foraminal stenosis at this level, as described above. 4. Overall, moderate multilevel degenerative changes within the lumbar spine. 5. Transitional vertebra at the lumbosacral junction. Seen by Dr. Anderson-recommended LSO brace with ambulation, physical therapy-did not recommend surgical intervention given his health history and malnourished status. (2) Alcohol related seizure: Plan: Pt with alcohol related seizure while in the ER. Initially started on Keppra, however, neurology doesn't recommend AEDs given etiology of seizure. Keppra was discontinued. He completed gabapentin protocol for withdrawal and is no longer exhibiting withdrawal symptoms. --Head/Neck CTA:There is no hemorrhage, mass effect, or evidence of acute territorial ischemia by CT criteria. Unremarkable CT angiogram of the brain. Unremarkable CT angiogram of the neck. --MRI Brain:No acute findings in the head/brain. --EEG: This is a normal awake and drowsy routine EEG. There is no evidence of focal slowing or epileptiform activity. Electrolyte abnormalities corrected throughout his stay. Cont thiamine and folic acid supplementation. Ammonia level normal. Pt refused psychiatric evaluation. Anisocoria initially noted on exam was likely related to post-ictal state. Driving not permitted until cleared by neurology (reported to [facility]) --alcohol cessation recommended. (3) Alcohol abuse with withdrawal: Plan: treated, alcohol cessation recommended. (4) Polyneuropathy: Plan: Likely related to his alcohol abuse and B12 def. May also be contributed by his lumbar spinal findings as above -Recommend alcohol cessation -B12 deficient and vit D deficient. Continue supplementation -vitamin B6 levels pending. (5) Ambulatory dysfunction: Plan: Multifactorial including but not limited to prolonged hospital stay, polyneuropathy (6) B12 deficiency: Plan: Given 5 days of intramuscular B12 shots daily a week ago and now on daily oral B12 supplementation. IM B12 injection repeated 11/25. (7) Vitamin D deficiency: Plan: started on high-dose ergocalciferol. Follow-up as outpatient with PCP for maintenance vitamin D once repletion completed (8) HTN (hypertension): Plan: Started on amlodipine 5 Mg daily, continue (9) Mood altered: Plan: Depressed Mood: Refused psychiatry evaluation; Counseled to quit drinking (10) Elevated troponin: Plan: Troponin trended down, likely demand ischemia. Echo noted concentric changes, dilated aortic root (mild) (11) NSVT (nonsustained ventricular tachycardia): Plan: Hypokalemia, hypomagnesemia likely contributors and replaced. Notably patient must stop drinking alcohol for the Mg to return to normal. Cardiology saw patient this admission, agrees with addition of beta kandice. Needs outpatient stress test. Continue risk factor, lifestyle modification. (12) Nocturnal hypoxia: Plan: Nocturnal hypoxia per inpatient oximetry study Will continue 2 L supplemental oxygen at bedtime Advised sleep study as outpatient (13) Transaminitis: Plan: Hepatic steatosis seen on imaging Transaminitis --Liver USD:Hepatic steatosis. Gallstones and biliary sludge with no sonographic evidence of acute cholecystitis. Likely related to alcohol use and fatty liver. LFTs trended down Monitor as outpatient. DVT prophylaxis: sc lovenox Dispo- PT OT recommends rehab- plan to discharge to tomorrow. Medically stable for discharge. Admission and Anticipated Discharge Date Admission Date: November 15, 2022 Subjective Patient was seen and examined bedside. No new issues. Denies any pain. States he has bilateral below-knee numbness remains the same with no improvement. No fever, chills, chest pain or shortness of breath nausea or vomiting. Awaiting rehab Review of Systems Review of Systems: All systems reviewed & are unremarkable except as noted in Subjective Physical Exam Physical Exam: General: Unkempt, lying comfortably in bed watching TV, not in distress, on room air HEENT: EOMI, MARISOL, MMM Chest: Clear breath sounds bilaterally, no wheezes or crackles CVS: Regular rate and rhythm, normal heart sounds, no murmur Abdomen: Soft, non tender, not distended, normal bowel sounds Neuro: Awake, alert, oriented, conversing well. Decreased sensation on bilateral lower leg below knee, strength 5/5 Extremities: No cyanosis, clubbing or edema Results & Data Results & Data Vital Signs (Past 12 Hours) Vital Signs Temp Pulse Resp BP Pulse Ox O2 Del Method 11/26/22 14:36 36.9 C 79 18 109/72 98 Room Air 11/26/22 08:00 Room Air 11/26/22 07:17 36.9 C 77 16 121/78 99 Room Air Medications Administered Current Inpatient Medications Acetaminophen (Acetaminophen 325 Mg Tab) 650 mg PO Q4H PRN PRN Reason: Pain or Fever Stop: 12/15/22 17:37 Last Admin: 11/26/22 14:17 Dose: 650 mg Amlodipine Besylate (Amlodipine Besylate 5 Mg Tab) [facility] [place] Stop: 12/19/22 09:44 Last Admin: 11/26/22 08:14 Dose: 5 mg Cyanocobalamin (Cyanocobalamin (B-12) 500 Mcg Tablet) 1,000 mcg PO QAM [facility] Stop: 12/22/22 13:44 Last Admin: 11/26/22 08:16 Dose: 1,000 mcg Ergocalciferol (Ergocalciferol 50,000 Units 1250 Mcg Cap) 50,000 units PO Q4D@0900 [facility] Stop: 12/22/22 19:09 Last Admin: 11/26/22 08:16 Dose: 50,000 units Folic Acid (Folic Acid 1 Mg Tab) 1 mg PO QAM [facility] Stop: 12/16/22 08:59 Last Admin: 11/26/22 08:16 Dose: 1 mg Heparin Sodium (Porcine) (Heparin Sod 5,000 Unit/0.5 Ml Vial) 5,000 units SQ Q12 [facility] Stop: 12/18/22 20:59 Last Admin: 11/26/22 08:18 Dose: 5,000 units Metoprolol Succinate (Metoprolol Succ 25mg Ext Rel Tab) 25 mg PO BID [facility] Stop: 12/19/22 02:59 Last Admin: 11/26/22 08:17 Dose: 25 mg Miscellaneous (Remove Nicoderm Patch) 1 each N/A DAILY@2259 [facility] Stop: 12/16/22 08:58 Last Admin: 11/25/22 20:37 Dose: 1 each Nicotine (Nicotine 21 Mg/24 Hr Tdsy) 21 mg TD Q24H [facility] Stop: 12/16/22 00:00 Last Admin: 11/25/22 20:38 Dose: 21 mg Ondansetron HCl (Ondansetron Inj 2 Mg/Ml 2 Ml Vial) 4 mg IV Q6H PRN PRN Reason: Nausea Stop: 12/15/22 17:37 Polymyxin/Trimethoprim Sulfate (Trimethoprim/Polymyxin B) 1 drops OP Q4H [facility] Stop: 12/16/22 10:14 Last Admin: 11/26/22 14:14 Dose: 1 drops Thiamine HCl (Thiamine Hcl 100 Mg Tab) 100 mg PO QAM [facility] Stop: 12/16/22 08:59 Last Admin: 11/26/22 08:15 Dose: 100 mg
[2022-11-26] MEDS ORDERED: ENOXAPARIN INJ 40 MG/0.4 ML SYR SQ SCH (21:00)
[2022-11-26] MEDS: NICOTINE 21 MG/24 HR TDSY TD SCH (21:39)
[2022-11-27] MEDS: TRIMETHOPRIM/POLYMYXIN B OP SCH ×3 (02:13→08:48)
[2022-11-27] MEDS: amLODIPine BESYLATE 5 MG TAB PO SCH (08:47)
[2022-11-27] MEDS: THIAMINE HCL 100 MG TAB PO SCH (08:47)
[2022-11-27] MEDS: METOPROLOL SUCC 25MG EXT REL TAB PO SCH (08:47)
[2022-11-27] MEDS: FOLIC ACID 1 MG TAB PO SCH (08:48)
[2022-11-27] MEDS: CYANOCOBALAMIN (B-12) 500 MCG TABLET PO SCH (08:48)
--- NOTE | 2022-11-27 13:56 | Discharge Summary ---
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 effusions. Cerumen is noted within the external auditory canals. IMPRESSION: 1. There is no hemorrhage, mass effect, or evidence of acute territorial ischemia by CT criteria. 2. Unremarkable CT angiogram of the brain. 3. Unremarkable CT angiogram of the neck. ACT 112: Negative or not required by law. Electronically signed by: Tyler Dover M.D. 11/16/2022 4:01 PM Lumbar Spine MRI 11/24/22 11:45 MRI OF THE LUMBAR SPINE WITHOUT CONTRAST CLINICAL HISTORY: Recent fall. Low back pain, bilateral leg numbness COMPARISON STUDY: No previous studies for comparison. TECHNIQUE: Utilizing a 1.5 Gilda magnet and dedicated coil, multiplanar, multiecho imaging of the lumbar spine was performed without IV contrast. FINDINGS: For purposes of numbering on this exam, the L5-S1 disc space is assigned to axial image 35 of 44. There is a transitional vertebra at the lumbosacral junction which is designated as S1 for purposes of numbering on this exam and there is a small disc space at the S1-S2 level.. There is 9 mm of anterolisthesis of L4 on L5 due to bilateral L4 pars defects. Note is made of a moderate compression fracture of L1. There is slight increased T2 signal along the superior endplate. There is a moderate compression fracture of the inferior endplate of L2 with minimal marrow edema. There is a moderate L3 compression fracture with 70% loss of vertebral body height centrally. There is no significant marrow edema. There is moderate loss of height of the superior endplate of L4. No retropulsion related to compression fractures is noted. Discogenic changes at the L4-L5 level are present. Paravertebral soft tissues are unremarkable. The conus terminates at the upper L2 level. Incidental note is made of a fatty filum terminale. Presacral edema is present. Note is made of a partially visualized nondisplaced left sacral ala fracture. This is probably acute to subacute. L1-2: The central canal and neural foramen are patent. L2-3: There is mild disc space narrowing with disc bulge, facet arthrosis and ligamentous hypertrophy. The central canal and neural foramen are patent. L3-4: There is moderate facet arthrosis with ligamentous hypertrophy. There is mild disc bulge. There is mild narrowing of the central canal and lateral recesses. There is moderate bilateral neural foraminal stenosis. L4-5: Anterolisthesis is noted due to bilateral L5 pars defects. There is uncovering of the disc. Severe facet arthrosis is noted. There is moderate central canal stenosis. Patent AP diameter canal is 6.3 mm. There is moderate narrowing of the lateral recesses and severe narrowing of the bilateral neural foramen. L5-S1: There is mild facet arthrosis. There is mild disc space narrowing with disc bulge. Central canal is patent. There is mild narrowing of the lateral recesses and moderate narrowing of the right neural foramen. IMPRESSION: 1. L4 compression fracture, likely subacute to acute. L1 and L2 compression fractures, likely subacute to chronic. Chronic L3 compression fracture with 70% loss of vertebral body height centrally. No retropulsion. 2. Nondisplaced left sacral ala fracture, likely acute to subacute. 3. Grade I anterolisthesis of L4 and L5 due to bilateral L5 for pars defects. Moderate central canal stenosis and severe bilateral neural foraminal stenosis at this level, as described above. 4. Overall, moderate multilevel degenerative changes within the lumbar spine. 5. Transitional vertebra at the lumbosacral junction. Please see above numbering scheme of the lumbar spine. ACT 112: Negative or not required by law. Electronically signed by: Norman Harris M.D. 11/24/2022 1:42 PM Hospital Course (1) Compression fracture of L4 vertebra: MRI L spine shows 1. L4 compression fracture, likely subacute to acute. L1 and L2 compression fractures, likely subacute to chronic. Chronic L3 compression fracture with 70% loss of vertebral body height centrally. No retropulsion. 2. Nondisplaced left sacral ala fracture, likely acute to subacute. 3. Grade I anterolisthesis of L4 and L5 due to bilateral L5 for pars defects. Moderate central canal stenosis and severe bilateral neural foraminal stenosis at this level, as described above. 4. Overall, moderate multilevel degenerative changes within the lumbar spine. 5. Transitional vertebra at the lumbosacral junction. Seen by Dr. Anderson-recommended LSO brace with ambulation, physical therapy-did not recommend surgical intervention given his health history and malnourished status. F/u as OP (2) Alcohol related seizure: Pt with alcohol related seizure while in the ER. Initially started on Keppra, however, neurology doesn't recommend AEDs given etiology of seizure. Keppra was discontinued. He completed gabapentin protocol for withdrawal and is no longer exhibiting withdrawal symptoms. --Head/Neck CTA:There is no hemorrhage, mass effect, or evidence of acute territorial ischemia by CT criteria. Unremarkable CT angiogram of the brain. Unremarkable CT angiogram of the neck. --MRI Brain:No acute findings in the head/brain. --EEG: This is a normal awake and drowsy routine EEG. There is no evidence of focal slowing or epileptiform activity. Electrolyte abnormalities corrected throughout his stay. Cont thiamine and folic acid supplementation. Ammonia level normal. Pt refused psychiatric evaluation. Anisocoria initially noted on exam was likely related to post-ictal state. Driving not permitted until cleared by neurology (reported to [facility]) --alcohol cessation recommended. (3) Alcohol abuse with withdrawal: treated, alcohol cessation recommended. (4) Polyneuropathy: Likely related to his alcohol abuse and B12 def. May also be contributed by his lumbar spinal findings as above -Recommend alcohol cessation -B12 deficient and vit D deficient. Continue supplementation -vitamin B6 levels pending. (5) Ambulatory dysfunction: Multifactorial including but not limited to prolonged hospital stay, polyneuropathy (6) B12 deficiency: Given 5 days of intramuscular B12 shots daily a week ago and now on daily oral B12 supplementation. IM B12 injection repeated 11/25. Continue Oral B12 supplement and recheck as OP in few months. (7) Vitamin D deficiency: started on high-dose ergocalciferol. Follow-up as outpatient with PCP for maintenance vitamin D once repletion completed (8) HTN (hypertension): Started on amlodipine 5 Mg daily and metoprolol, BP stable, continue (9) Mood altered: Depressed Mood: Refused psychiatry evaluation; Counseled to quit drinking (10) Elevated troponin: Troponin trended down, likely demand ischemia. Echo noted concentric changes, dilated aortic root (mild) (11) NSVT (nonsustained ventricular tachycardia): Hypokalemia, hypomagnesemia likely contributors and replaced. Notably patient must stop drinking alcohol for the Mg to return to normal. Cardiology saw patient this admission, agrees with addition of beta kandice. Needs outpatient stress test. Continue risk factor, lifestyle modification. (12) Nocturnal hypoxia: Nocturnal hypoxia per inpatient oximetry study Will continue 2 L supplemental oxygen at bedtime Advised sleep study as outpatient (13) Transaminitis: Hepatic steatosis seen on imaging Transaminitis --Liver USD:Hepatic steatosis. Gallstones and biliary sludge with no sonographic evidence of acute cholecystitis. Likely related to alcohol use and fatty liver. LFTs trended down Monitor as outpatient. DVT prophylaxis: sc lovenox Dispo- PT OT recommends rehab. Medically stable for discharge to SNF. Total Time Total Time Spent Total Time Spent (In Minutes): 40 Discharge Plan Discharge Items Patient Disposition: Transfer Nursing Home Fac Reason For Visit: [facility] Discharge Diagnosis: Multiple vertebral fracture (L1, L2, L3 L4) with grade I anterolisthesis L4/L5 with moderate spinal canal stenosis and severe bilateral foraminal stenosis, B/L LE neuropathy, Vit B12 deficiency, Vit D deficiency, Alcohol abuse with alcohol related seizure Activity: Per Instructions section Non-emergency contact: Primary Care Provider and Surgeon Call non-emergency contact if: you have any medication questions and your symptoms worsen Follow-up/Referrals: PCP,NO [Primary Care Provider] - Diet: Regular Addtl Attending Provider Instructions: No driving until cleared by neurology [facility] Recommend quitting smoking and drinking. Continue the back brace for activities out of bed Continue physical therapy Continue Vitamin B12 and vitamin D supplementation along with folate and thiamine. Repeat labs as OP in the next few months with family doctor Continue norvasc and metoprolol daily as prescribed for your blood pressure Continue 2 L oxygen at bedtime for nocturnal hypoxia. Outpatient sleep study rec ommended- follow up with family doctor for referral. See orthopedic doctor Dr Anderson in the office in the next few weeks Cardio recommends outpatient follow up for consideration of stress test Follow up with family doctor Pending Studies at Discharge: No Stand-Alone Forms: My eMithilaHaat, Smoking Cessation Skilled Items Patient informed of condition?: Yes DNR: No Discharge Level of Care: Skilled Communicable Disease: No Discharge Prognosis: Stable Lines: None Urinary Catheter: No Medications and DC Order Prescriptions: New amlodipine [Norvasc] 5 mg Tablet 5 mg PO QAM Qty: 30 0RF cyanocobalamin (vitamin B-12) 500 mcg Tablet 1,000 mcg PO QAM Qty: 30 0RF metoprolol succinate 25 mg Tablet Extended Release 24 Hr 25 mg PO BID Qty: 60 0RF thiamine HCl (vitamin B1) 100 mg Tablet 100 mg PO QAM Qty: 30 0RF folic acid 1 mg Tablet 1 mg PO QAM Qty: 30 0RF ergocalciferol (vitamin D2) 1,250 mcg (50,000 unit) Capsule 50,000 unit PO Q7D Qty: 8 0RF nicotine [Nicoderm CQ] 21 mg/24 hr Patch 24 Hour 21 mg transdermal Q24H Qty: 14 0RF No Action No Known Home Medications Discharge Orders: Discharge Order (Routine); Ordered 11/27/22 Ordered By: Christian Ngo Admission Data Admit Date/Time: 11/15/22 17:38 Attending Provider: Christian Ngo Admit Provider: Елена Burch Primary Care Provider: PCP,NO Other Providers: [facility] ; Елена Burch ; Radhika Blanton ; Maximino Oscar ; Coy Rachel ; Hernandez Gleason ; Chad Butt ; Carlos Vela ; Aida Petersen ; Sita Magana ; Radhika Celestin ; Mahendra Miller ; Demario Castillo ; Rico Anderson ; Kingston Neff [facility] Other Interventions: Discharge Summary Assessment (RN) Last Done: 11/27/22 11:27
== END 2022-11-27 14:34 | DRG 897 ==
LOC: ED 15:24 → SUATTDRO 17:38 → 1E 17:38 → 2S 11-16 18:50 → 2N 11-20 13:30 → 3E 11-23 05:17

== ENCOUNTER 2023-01-22 15:15 | Inpatient (IN) ==
--- NOTE | 2023-01-22 15:28 | ED Triage Note ---
Date of Service January 22, 2023 History of Present Illness This patient was briefly evaluated while in triage. An abbreviated physical exam was performed. This patient is a 57-year-old Male who presents to the ED for evaluation of pins and needles sensation in both lower legs. This is only below the knees. Symptoms off and on for some time. Has occasional falls. Family voices concern for alcohol. Physical Exam Limited Triage Exam: VITALS: Vitals are noted on the nurse's note and reviewed by myself. Vital signs stable. GENERAL: Well-developed, well-nourished, white male, who is in no acute distress and resting comfortably. Patient is cooperative with the examination. HEART: Regular rate and rhythm without murmurs gallops or rubs. LUNGS: Clear to auscultation bilaterally without wheezes, rales or rhonchi. No retractions or accessory muscle use. NEURO: Patient was alert and oriented to person place and time. Initial orders for labs and / or imaging were placed and patient was placed in the waiting area until a bed is available. Please see further documentation for the full ED course. MDM / Impression Impression Impression: Paresthesia of bilateral legs, Alcohol abuse with withdrawal, Hyponatremia
[2023-01-22 16:23] LABS: Appearance Urine Clear (Clear); Bacteria Urine Automated Negative (Negative); Blood Urine Negative (Negative); Color Urine Orange; Glucose Urine UA Negative (Negative); Ketones Urine 2+ (Negative); Leukocyte Esterase Urine Negative (Negative); Nitrite Urine Positive (Negative); Protein Urine Negative (Negative); RBC Urine Automated 0-4 /hpf (0-4); Specific Gravity Urine 1.016 (1.000-1.030); Urobilinogen Urine Negative (Negative); pH Urine 5.5 (4.5-7.5)
[2023-01-22 16:36] LABS: Bilirubin Urine 1+ (Negative)
[2023-01-22 16:43] LABS: Amphetamines+Metham, Urine Neg (Neg); Barbiturates, Urine Neg (Neg); Benzodiazepine, Urine Neg (Neg); Cocaine, Urine Neg (Neg); MDMA (Ecstacy), Urine Neg (Neg); Methadone, Urine Neg (Neg); Opiate, Urine Neg (Neg); Phencyclidine, Urine Neg (Neg)
[2023-01-22 16:45] LABS: Basophils # (auto) 0.07 K/uL (0.00-0.20); Basophils % (auto) 0.7 %; Eosinophils # (auto) 0.04 K/uL (0.00-0.50); Eosinophils % (auto) 0.4 %; Hematocrit (blood only) 44.4 % (42.0-52.0); Hemoglobin 15.8 g/dl (14.0-18.0); Immature Granulocytes # (auto) 0.08 K/uL (0.01-0.20); Immature Granulocytes % (auto) 0.8 %; Lymphocytes # (auto) 1.07 K/uL (1.20-3.40); Lymphocytes % (auto) 10.3 %; Mean Corpuscular Hemoglobin 32.8 pg (25.0-34.0); Mean Corpuscular Hgb Conc 35.6 g/dL (32.0-36.0); Mean Corpuscular Volume 92.1 fL (80.0-100.0); Mean Platelet Volume 8.8 fL (9.4-12.4); Monocytes # (auto) 0.69 K/uL (0.11-0.59); Monocytes % (auto) 6.7 %; Neutrophils % (auto) 81.1 %; Platelet Count 237 K/uL (130-400); RDW Coefficient of Variation 13.5 % (11.5-14.5); RDW Standard Deviation 46.5 fL (36.4-46.3); Red Blood Count 4.82 M/uL (4.70-6.10); White Blood Count 10.35 K/ul (4.8-10.8)
[2023-01-22 17:04] LABS: Alanine Aminotransferase 18 U/L (7-52); Albumin Level 4.2 gm/dl (3.4-5.0); Alkaline Phosphatase 106 U/L (34-104); Anion Gap 13 (3-11); Aspartate Aminotransferase 58 U/L (13-39); BUN Creatinine Ratio 7.8 (10-20); Bilirubin,Total 1.3 mg/dl (0.2-1.0); Blood Urea Nitrogen 5 mg/dl (6-23); Calcium 10.2 mg/dl (8.6-10.3); Carbon Dioxide 22 mmol/L (21-32); Chloride 91 mmol/L (98-107); Creatine Kinase 984 U/L (30-223); Est GFR (African American) 127.8 ml/min; Est GFR (Non-African American) 110.2 ml/min; Globulin 4.1 gm/dl (2.5-4.0); Glucose 86 mg/dl (70-99(Fasting)); Lipase 12 U/L (11-82); Magnesium 1.8 mg/dl (1.7-2.4); Potassium 4.2 mmol/L (3.5-5.1); Sodium 126 mmol/L (136-145); Total Protein 8.3 gm/dl (6.0-8.3)
[2023-01-22 17:16] LABS: Troponin I High Sensitivity 85.2 pg/ml (0-20)
--- NOTE | 2023-01-22 17:21 | XRay Report ---
XR chest 1V not portable HISTORY: weakness COMPARISON: None. FINDINGS: No pneumothorax. No pleural effusions. The heart is normal in size. No focal lung consolida tions to suggest a pneumonia. No evidence for pulmonary edema. Multiple old bilateral rib fractures a re again noted. IMPRESSION: No acute process. ACT 112: Negative or not required by law. Electronically signed by: Kaden Rainey M.D. 01/22/2023 5:19 PM
--- NOTE | 2023-01-22 17:28 | Emergency Department Note ---
Impression & Plan Paresthesia of bilateral legs, Alcohol abuse with withdrawal, Hyponatremia ED Provider Note NAME: RHONA NEGRON AGE: 57 SEX: M : 1965 ARRIVES VIA: Walk-In INFORMANT: Patient, ED PROVIDER(S): Lavell Salas MD CHIEF COMPLAINT: Lower extremity paresthesias MEDICAL DECISION MAKING: Patient presents due to concern for lower extremity paresthesias. IV was established and blood work is obtained. Patient was ordered a banana bag and was ordered IV fluids. The patient does have an elevated troponin and does have some hyperacute T waves with the patient has no chest pain or shortness of breath. This does not appear to be an acute STEMI at this time. Patient was ordered Ativan CIMO protocol in addition to p.o. Librium. Patient has a normal white counts, patient does have hyponatremia. Patient is also noted to have an elevated troponin of 85 although this has been chronically elevated in the past. Urine and serum osmolality was ordered in addition to urine electrolytes. I did speak with the on-call hospitalist Dr. Morales and the patient was admitted to the medicine service. Critical Care: I have personally spent 35 minutes of critical care time in direct management of this patient. This includes bedside care, interpretation of diagnostic studies, and testing, discussion with consultants, patient, and family members, and other require inpatient management activities. This 35 minutes is in excess of all separately billable procedures. Prior /Outside records reviewed: I reviewed a discharge summary from Dr. Ngo from October 2022. Patient was seen at that time due to concern for syncope and tachycardia was thought that the patient may have been having seizure-like activity secondary to possible DTs that time the patient did have a compression fracture of L4. The patient did have an alcohol related seizure and treatment with alcohol abuse and withdrawal. Patient also does have polyneuropathy. Differential diagnosis: Neuropathy, sciatica, alcohol withdrawal, alcohol abuse, electrolyte abnormality, dehydration among others were considered Diagnostics, as interpreted by me: ECG: Sinus tachycardia, rate of 119, normal intervals, normal axis, T wave amplitude appears increased anteriorly and laterally. This is acute change but no obvious concavity consistent with STEMI at this time. No reciprocal changes Cardiac monitoring: An order was placed for continuous cardiac monitoring. The monitor shows a rate of 89 with sinus rhythm. Patient was placed on pulse oximetry Medical decision rules: [facility] protocol Imaging studies: See below I informally reviewed the patient's chest x-ray which does not show obvious pneumothorax. HPI: Patient presents due to concern for lower extremity paresthesias from his knees down. The patient states that this been ongoing for "a while" but it seemed to be worse in the last several days. The patient states that he did have a fall last evening and struck the left side of his head. Patient denies any true numbness. The patient states that he does not drink "that much" and then after further discussion the patient states that he did drink 6-8 beers last night. Patient denies any LOC after his head strike. The patient states that he does not take a multivitamin symptoms does not eat a very well-rounded diet. The patient denies any back pain or chest pain. No shortness of breath. PAST MEDICAL HISTORY: See Below PAST SURGICAL HISTORY: See Below SOCIAL HISTORY: See Below HOME MEDICATIONS: See Below ALLERGIES: See Below VITALS: See Below PHYSICAL EXAMINATION: GENERAL: NAD, non-toxic. EYE EXAM: Normal conjunctiva. PERRL, no anisocoria and EOM's grossly intact w/o pain. OROPHARYNX: Moist mucus membranes, grossly normal dentition. NECK: Supple, no nuchal rigidity, no adenopathy, non-tender. No signs of meningismus. FROM of the neck with good chin to chest and neck extension. No stridor. LUNGS: Clear to auscultation. Normal chest wall mechanics. HEART: NSR, no MRG. ABDOMEN: Abdomen soft, non-tender, no masses, no rebound or guarding. BACK: No CVA TTP. SKIN: No rashes and no bruising. UPPER EXTREMITIES: Upper extremities are grossly normal. LOWER EXTREMITIES: Grossly normal, no edema. NEURO EXAM: A&O x3, cranial nerves II-XII grossly intact, normal speech, moves all 4 extremities. Paresthesias to the bilateral lower extremities from the knees down. No actual numbness. Equal and symmetric strength. Past Med/Surg History Medical History Alcohol abuse with withdrawal HTN (hypertension) Mood altered No pertinent family history No pertinent past medical history Seizure Surgical History History of appendectomy Family History Other Cancer Hypertension Social History Smoking Status: Current some day smoker Tobacco Type: Cigarettes Cigarettes Per Day: "only when I'm drinking"; Do You Dip or Chew Tobacco: Yes; Tobacco Cessation Education Requested by Patient: No Hx Alcohol Use: Yes Alcohol type: beer Alcohol Intake Frequency: 2-3 x/Week Alcohol Intake Frequency Comment: Binge Drinker on the weekends Hx Substance Use: No Preferred Language: German Communication Ability: Effective Service Now Developer Required: No Beliefs That Will Affect Care: None Current Living Situation: Alone Current Living Situation Comment: Patient stated that his sister is able to assist with needs at home Other Information That Helps Us Care for You: No Feels Safe at Home: Yes Safety Concerns: Feels Safe At This Time Assistive Devices: Walker Allergies Allergies Allergy/AdvReac Type Severity Reaction Status Date / Time No Known Allergies Allergy Unverified 01/22/23 19:26 Home Meds Home Medications Medication Instructions Recorded Confirmed cyanocobalamin (vitamin B-12) 500 0 mcg PO QAM 01/22/23 01/22/23 mcg tablet ergocalciferol (vitamin D2) 1,250 0 unit PO Q7D 01/22/23 01/22/23 mcg (50,000 unit) capsule folic acid 1 mg tablet 0 mg PO QAM 01/22/23 01/22/23 metoprolol succinate 25 mg 0 mg PO BID 01/22/23 01/22/23 tablet,extended release 24 hr nicotine 21 mg/24 hr daily 0 mg transdermal Q24H 01/22/23 01/22/23 transdermal patch (Nicoderm CQ) thiamine HCl (vitamin B1) 100 mg 0 mg PO QAM 01/22/23 01/22/23 tablet Previous Rx's Medication Instructions Recorded amlodipine 5 mg tablet (Norvasc) 0 mg PO QAM 01/22/23 Results & Data (ED) Vital Signs Vital Signs - 24 hr 01/22/23 15:23 01/22/23 17:19 01/22/23 17:21 Temperature 36.6 C Temperature Source Temporal Artery Scan Pulse Rate 125 H 91 H Pulse Rate [Apical] 104 H Respiratory Rate 16 18 Respiratory Effort / Characteristics Non-Labored Spontaneous Respiratory Depth Normal Blood Pressure 144/96 H Blood Pressure [Left Arm] 151/103 H Blood Pressure Mean 112 Blood Pressure Mean [Left Arm] 119 Pulse Oximetry 98 97 Oxygen Delivery Method Room Air Room Air Sepsis Recent Fever Within 48 Hours No Sepsis New/Unexplained Change in Mental Status No Sepsis Action Taken by Nursing No Action Required 01/22/23 17:22 Temperature Temperature Source Pulse Rate Pulse Rate [Apical] Respiratory Rate Respiratory Effort / Characteristics Respiratory Depth Blood Pressure Blood Pressure [Left Arm] Blood Pressure Mean Blood Pressure Mean [Left Arm] Pulse Oximetry 98 Oxygen Delivery Method Room Air Sepsis Recent Fever Within 48 Hours Sepsis New/Unexplained Change in Mental Status Sepsis Action Taken by Alf Medications Current Medication List: was personally reviewed by me Laboratory Data Attestation: I reviewed the patient's lab results. 01/22/23 16:10 01/22/23 16:10 Lab Results 01/22/23 01/22/23 01/22/23 Range/Units 15:37 15:37 16:10 WBC 10.35 (4.8-10.8) K/ul RBC 4.82 (4.70-6.10) M/uL Hgb 15.8 (14.0-18.0) g/dl Hct 44.4 (42.0-52.0) % MCV 92.1 (80.0-100.0) fL MCH 32.8 (25.0-34.0) pg MCHC 35.6 (32.0-36.0) g/dL RDW Std Deviation 46.5 H (36.4-46.3) fL RDW Coeff of Mallory 13.5 (11.5-14.5) % Plt Count 237 (130-400) K/uL MPV 8.8 L (9.4-12.4) fL Immature Gran % (Auto) 0.8 % Neut % (Auto) 81.1 % Lymph % (Auto) 10.3 % Long % (Auto) 6.7 % Eos % (Auto) 0.4 % Baso % (Auto) 0.7 % Neut # (Auto) 8.40 H (1.40-6.50) K/uL Lymph # (Auto) 1.07 L (1.20-3.40) K/uL Long # (Auto) 0.69 H (0.11-0.59) K/uL Eos # (Auto) 0.04 (0.00-0.50) K/uL Baso # (Auto) 0.07 (0.00-0.20) K/uL Immature Gran # (Auto) 0.08 (0.01-0.20) K/uL PT (9.0-12.0) Seconds INR (0.9-1.1) APTT (21.0-31.0) Seconds PTT Ratio Sodium (136-145) mmol/L Potassium (3.5-5.1) mmol/L Chloride (98-107) mmol/L Carbon Dioxide (21-32) mmol/L Anion Gap (3-11) BUN (6-23) mg/dl Creatinine (0.6-1.4) mg/dl Est Cr Clr Drug Dosing Est GFR ( Amer) ml/min Est GFR (Non-Af Amer) ml/min BUN/Creatinine Ratio (10-20) Glucose (70-99(Fasting)) mg/dl Osmolality (280-300) mOsm/kg Calcium (8.6-10.3) mg/dl Magnesium (1.7-2.4) mg/dl Total Bilirubin (0.2-1.0) mg/dl AST (13-39) U/L ALT (7-52) U/L Alkaline Phosphatase (34-104) U/L Total Creatine Kinase (30-223) U/L Troponin I High Sens (0-20) pg/ml Total Protein (6.0-8.3) gm/dl Albumin (3.4-5.0) gm/dl Globulin (2.5-4.0) gm/dl Albumin/Globulin Ratio (0.9-2) Lipase (11-82) U/L TSH (0.300-4.500) uIu/ml Free T4 (0.61-1.60) ng/dl Urine Color [place] Urine Appearance Clear (Clear) Urine pH 5.5 (4.5-7.5) Ur Specific [place] 1.016 (1.000-1.030) Urine Protein Negative (Negative) Urine Glucose (UA) Negative (Negative) Urine Ketones 2+ H (Negative) Urine Blood Negative (Negative) Urine Nitrite Positive A (Negative) Urine Bilirubin 1+ H (Negative) Urine Urobilinogen Negative (Negative) Ur Leukocyte Esterase Negative (Negative) Urine WBC (Auto) 1-5 (0-5) /hpf Urine RBC (Auto) 0-4 (0-4) /hpf U Hyaline Cast (Auto) 5-10 H (0-5) /lpf U Epithel Cells (Auto) 10-20 H (0-5) /lpf Urine Bacteria (Auto) Negative (Negative) Urine Opiates Screen Neg (Neg) Ur Methadone, Qual Neg (Neg) Urine Barbiturates Neg (Neg) Ur Phencyclidine (PCP) Neg (Neg) U Amphetamin/Meth Scrn Neg (Neg) MDMA (Ecstasy) Screen Neg (Neg) U Benzodiazepines Scrn Neg (Neg) Ur Cocaine Metabolite Neg (Neg) U Marijuana (THC) Screen Neg (Neg) Ethyl Alcohol mg/dL (<10.0) mg/dl Lyme Disease IgG Ab (Negative) Lyme Disease IgM Ab (Negative) 01/22/23 01/22/23 01/22/23 Range/Units 16:10 16:10 16:10 WBC (4.8-10.8) K/ul RBC (4.70-6.10) M/uL Hgb (14.0-18.0) g/dl Hct (42.0-52.0) % MCV (80.0-100.0) fL MCH (25.0-34.0) pg MCHC (32.0-36.0) g/dL RDW Std Deviation (36.4-46.3) fL RDW Coeff of Mallory (11.5-14.5) % Plt Count (130-400) K/uL MPV (9.4-12.4) fL Immature Gran % (Auto) % Neut % (Auto) % Lymph % (Auto) % Long % (Auto) % Eos % (Auto) % Baso % (Auto) % Neut # (Auto) (1.40-6.50) K/uL Lymph # (Auto) (1.20-3.40) K/uL Long # (Auto) (0.11-0.59) K/uL Eos # (Auto) (0.00-0.50) K/uL Baso # (Auto) (0.00-0.20) K/uL Immature Gran # (Auto) (0.01-0.20) K/uL PT 11.4 (9.0-12.0) Seconds INR 1.0 (0.9-1.1) APTT 30.4 (21.0-31.0) Seconds PTT Ratio 1.1 Sodium 126 L (136-145) mmol/L Potassium 4.2 (3.5-5.1) mmol/L Chloride 91 L (98-107) mmol/L Carbon Dioxide 22 (21-32) mmol/L Anion Gap 13 H (3-11) BUN 5 L (6-23) mg/dl Creatinine 0.64 (0.6-1.4) mg/dl Est Cr Clr Drug Dosing Not Reportable Est GFR ( Amer) 127.8 ml/min Est GFR (Non-Af Amer) 110.2 ml/min BUN/Creatinine Ratio 7.8 L (10-20) Glucose 86 (70-99(Fasting)) mg/dl Osmolality (280-300) mOsm/kg Calcium 10.2 (8.6-10.3) mg/dl Magnesium 1.8 (1.7-2.4) mg/dl Total Bilirubin 1.3 H (0.2-1.0) mg/dl AST 58 H (13-39) U/L ALT 18 (7-52) U/L Alkaline Phosphatase 106 H (34-104) U/L Total Creatine Kinase 984 H (30-223) U/L Troponin I High Sens 85.2 H* (0-20) pg/ml Total Protein 8.3 (6.0-8.3) gm/dl Albumin 4.2 (3.4-5.0) gm/dl Globulin 4.1 H (2.5-4.0) gm/dl Albumin/Globulin Ratio 1.0 (0.9-2) Lipase 12 (11-82) U/L TSH 4.702 H (0.300-4.500) uIu/ml Free T4 0.89 (0.61-1.60) ng/dl Urine Color Urine Appearance (Clear) Urine pH (4.5-7.5) Ur Specific [place] (1.000-1.030) Urine Protein (Negative) Urine Glucose (UA) (Negative) Urine Ketones (Negative) Urine Blood (Negative) Urine Nitrite (Negative) Urine Bilirubin (Negative) Urine Urobilinogen (Negative) Ur Leukocyte Esterase (Negative) Urine WBC (Auto) (0-5) /hpf Urine RBC (Auto) (0-4) /hpf U Hyaline Cast (Auto) (0-5) /lpf U Epithel Cells (Auto) (0-5) /lpf Urine Bacteria (Auto) (Negative) Urine Opiates Screen (Neg) Ur Methadone, Qual (Neg) Urine Barbiturates (Neg) Ur Phencyclidine (PCP) (Neg) U Amphetamin/Meth Scrn (Neg) MDMA (Ecstasy) Screen (Neg) U Benzodiazepines Scrn (Neg) Ur Cocaine Metabolite (Neg) U Marijuana (THC) Screen (Neg) Ethyl Alcohol mg/dL (<10.0) mg/dl Lyme Disease IgG Ab (Negative) Lyme Disease IgM Ab (Negative) 01/22/23 01/22/23 01/22/23 Range/Units 16:10 16:10 17:12 WBC (4.8-10.8) K/ul RBC (4.70-6.10) M/uL Hgb (14.0-18.0) g/dl Hct (42.0-52.0) % MCV (80.0-100.0) fL MCH (25.0-34.0) pg MCHC (32.0-36.0) g/dL RDW Std Deviation (36.4-46.3) fL RDW Coeff of Mallory (11.5-14.5) % Plt Count (130-400) K/uL MPV (9.4-12.4) fL Immature Gran % (Auto) % Neut % (Auto) % Lymph % (Auto) % Long % (Auto) % Eos % (Auto) % Baso % (Auto) % Neut # (Auto) (1.40-6.50) K/uL Lymph # (Auto) (1.20-3.40) K/uL Long # (Auto) (0.11-0.59) K/uL Eos # (Auto) (0.00-0.50) K/uL Baso # (Auto) (0.00-0.20) K/uL Immature Gran # (Auto) (0.01-0.20) K/uL PT (9.0-12.0) Seconds INR (0.9-1.1) APTT (21.0-31.0) Seconds PTT Ratio Sodium (136-145) mmol/L Potassium (3.5-5.1) mmol/L Chloride (98-107) mmol/L Carbon Dioxide (21-32) mmol/L Anion Gap (3-11) BUN (6-23) mg/dl Creatinine (0.6-1.4) mg/dl Est Cr Clr Drug Dosing Est GFR ( Amer) ml/min Est GFR (Non-Af Amer) ml/min BUN/Creatinine Ratio (10-20) Glucose (70-99(Fasting)) mg/dl Osmolality 264 L (280-300) mOsm/kg Calcium (8.6-10.3) mg/dl Magnesium (1.7-2.4) mg/dl Total Bilirubin (0.2-1.0) mg/dl AST (13-39) U/L ALT (7-52) U/L Alkaline Phosphatase (34-104) U/L Total Creatine Kinase (30-223) U/L Troponin I High Sens (0-20) pg/ml Total Protein (6.0-8.3) gm/dl Albumin (3.4-5.0) gm/dl Globulin (2.5-4.0) gm/dl Albumin/Globulin Ratio (0.9-2) Lipase (11-82) U/L TSH (0.300-4.500) uIu/ml Free T4 (0.61-1.60) ng/dl Urine Color Urine Appearance (Clear) Urine pH (4.5-7.5) Ur Specific [place] (1.000-1.030) Urine Protein (Negative) Urine Glucose (UA) (Negative) Urine Ketones (Negative) Urine Blood (Negative) Urine Nitrite (Negative) Urine Bilirubin (Negative) Urine Urobilinogen (Negative) Ur Leukocyte Esterase (Negative) Urine WBC (Auto) (0-5) /hpf Urine RBC (Auto) (0-4) /hpf U Hyaline Cast (Auto) (0-5) /lpf U Epithel Cells (Auto) (0-5) /lpf Urine Bacteria (Auto) (Negative) Urine Opiates Screen (Neg) Ur Methadone, Qual (Neg) Urine Barbiturates (Neg) Ur Phencyclidine (PCP) (Neg) U Amphetamin/Meth Scrn (Neg) MDMA (Ecstasy) Screen (Neg) U Benzodiazepines Scrn (Neg) Ur Cocaine Metabolite (Neg) U Marijuana (THC) Screen (Neg) Ethyl Alcohol mg/dL < 10.0 (<10.0) mg/dl Lyme Disease IgG Ab Negative (Negative) Lyme Disease IgM Ab Negative (Negative) Administered Medications Enoxaparin Sodium (Enoxaparin Inj 40 Mg/0.4 Ml Syr) 40 mg SQ HS CHELSEY Stop: 02/21/23 22:29 Last Admin: 01/22/23 22:56 Dose: 40 mg Documented By: TALHA Magnesium Sulfate/Dextrose (Magnesium Sulfate / D5w) 1 gm in 100 mls @ 50 mls/hr IV Q2H CHELSEY Stop: 01/22/23 23:14 Last Admin: 01/22/23 21:18 Dose: 50 mls/hr Documented By: Infusion: 01/22/23 20:15 Dose: 0 mls/hr Documented By: Admin: 01/22/23 19:25 Dose: 50 mls/hr Documented By: BARBER Metoprolol Succinate (Metoprolol Succ 25mg Ext Rel Tab) 25 mg PO BID CHELSEY Stop: 02/21/23 22:07 Last Admin: 01/22/23 22:53 Dose: 25 mg Documented By: TALHA Nicotine (Nicotine 21 Mg/24 Hr Tdsy) 21 mg TD DAILY CHELSEY Stop: 02/21/23 22:29 Last Admin: 01/22/23 22:54 Dose: Not Given Documented By: TALHA Discontinued Medications Chlordiazepoxide HCl (Chlordiazepoxide Hcl 25 Mg Cap) 50 mg PO NOW ONE Stop: 01/22/23 17:46 Last Admin: 01/22/23 18:25 Dose: 50 mg Documented By: SHREE Gabapentin (Gabapentin 600 Mg Tab) 1,200 mg PO NOW ONE Stop: 01/22/23 22:09 Last Admin: 01/22/23 22:53 Dose: 1,200 mg Documented By: TALHA Multivitamins 10 ml/ Thiamine HCl 100 mg/ Folic Acid 1 mg/Sodium Chloride 1, 011.2 mls @ 500 mls/hr IV .Q2H2M ONE Stop: 01/22/23 19:46 Last Infusion: 01/22/23 21:16 Dose: 0 mls/hr Documented By: Admin: 01/22/23 18:58 Dose: 500 mls/hr Documented By: SHREE Sodium Chloride (Nss 1000ml) 1,000 mls @ 999 mls/hr IV .Q1H1M ONE Stop: 01/22/23 18:46 Last Infusion: 01/22/23 18:57 Dose: 0 mls/hr Documented By: Admin: 01/22/23 17:53 Dose: 999 mls/hr Documented By: ML Labetalol HCl (Labetalol Hcl Iv 5 Mg/Ml 20ml) 10 mg IV NOW STA Stop: 01/22/23 21:41 Last Admin: 01/22/23 22:55 Dose: 10 mg Documented By: TALHA Co-signed By: ARR Lorazepam (Lorazepam 2 Mg/1 Ml Vial) 1 mg IV ONE PRN; Protocol PRN Reason: EtoH Withdrawal AWSS 6,7,8,9,10 Last Admin: 01/22/23 18:25 Dose: 1 mg Documented By: SHREE Imaging Data Radiologist's Impression: Chest X-Ray 01/22/23 15:29 XR chest 1V not portable HISTORY: weakness COMPARISON: None. FINDINGS: No pneumothorax. No pleural effusions. The heart is normal in size. No focal lung consolidations to suggest a pneumonia. No evidence for pulmonary edema. Multiple old bilateral rib fractures are again noted. IMPRESSION: No acute process. ACT 112: Negative or not required by law. Electronically signed by: Kaden Rainey M.D. 01/22/2023 5:[address] 01/22/23 18:03 Exam(s): CT HEAD Without Contrast EXAM: CT Head Without Intravenous Contrast CLINICAL HISTORY: Reason for exam: L sided CHI, alcohol use. TECHNIQUE: Axial computed tomography images of the head/brain without intravenous contrast. CTDI is 38.49 mGy and DLP is 624.41 mGy-cm. Automated exposure control was utilized for the study. A dose lowering technique was utilized adhering to the principles of ALARA. COMPARISON: 11/15/2022 FINDINGS: Brain: Mild ischemic microangiopathy. Age appropriate cerebral volume loss. No hemorrhage. Ventricles: Unremarkable. No ventriculomegaly. Bones/joints: Unremarkable. No acute fracture. Soft tissues: Unremarkable. Sinuses: Unremarkable as visualized. No acute sinusitis. Mastoid air cells: Unremarkable as visualized. No mastoid effusion. IMPRESSION: Head CT negative for acute intracranial abnormality. Mild chronic senescent changes as described above. Electronically signed by: Rodrigo Rodas MD 01/22/23 19:09 PM Discharge Plan Visit Data Chief Complaint: Leg Weakness, Bilateral Stated Complaint: LEG WEAKNESS ED Provider: Lavell Salas Discharge Problem: Paresthesia of bilateral legs, Alcohol abuse with withdrawal, Hyponatremia Patient Disposition: Admitted As Inpatient Discharge Instructions Interventions: ED Discharge Assessment Last Done: 01/22/23 21:44
[2023-01-22 17:29] LABS: Partial Thromboplastin Ratio 1.1; Partial Thromboplastin Time 30.4 Seconds (21.0-31.0); Prothrombin Time 11.4 Seconds (9.0-12.0)
[2023-01-22 17:32] LABS: Lyme Ab IgG w/WB Rflx Negative (Negative); Lyme Ab IgM w/WB Rflx Negative (Negative)
[2023-01-22 17:44] LABS: Thyroid Stimulating Hormone 4.702 uIu/ml (0.300-4.500)
[2023-01-22] MEDS ORDERED: chlordiazePOXIDE HCl 25 MG CAP PO ONE (17:45)
[2023-01-22] MEDS ORDERED: MULTI-VITAMIN INFUSION 10 ML, THIAMINE HCL 100 MG, FOLIC ACID 1 MG in SODIUM CHLORIDE 0... IV ONE (17:45)
[2023-01-22] MEDS ORDERED: Ativan IV Alcohol Withdrawal--Active Protocol IV PRN (17:45)
[2023-01-22] MEDS ORDERED: LORazepam 2 MG/1 ML VIAL IV PRN ×4 (17:45)
[2023-01-22] MEDS ORDERED: SODIUM CHLORIDE 0.9% 1,000 ML IV ONE (17:46)
[2023-01-22 18:17] LABS: T4 Free Thyroxine 0.89 ng/dl (0.61-1.60)
[2023-01-22] MEDS ORDERED: MAG SULFATE 50% 1GM/2ML VIAL IV ONE (19:00)
--- NOTE | 2023-01-22 19:10 | CT Scan Report ---
Exam(s): CT HEAD Without Contrast EXAM: CT Head Without Intravenous Contrast CLINICAL HISTORY: Reason for exam: L sided CHI, alcohol use. TECHNIQUE: Axial computed tomography images of the head/brain without intravenous contrast. CTDI is 38.49 mGy and DLP is 624.41 mGy-cm. Automated exposure control was utilized for the study. A dose lowering technique was utilized adhering to the principles of ALARA. COMPARISON: 11/15/2022 FINDINGS: Brain: Mild ischemic microangiopathy. Age appropriate cerebral volume loss. No hemorrhage. Ventricles: Unremarkable. No ventriculomegaly. Bones/joints: Unremarkable. No acute fracture. Soft tissues: Unremarkable. Sinuses: Unremarkable as visualized. No acute sinusitis. Mastoid air cells: Unremarkable as visualized. No mastoid effusion. IMPRESSION: Head CT negative for acute intracranial abnormality. Mild chronic senescent changes as described above. Electronically signed by: Rodrigo Rodas MD 01/22/23 19:09 PM
[2023-01-22] MEDS: MAGNESIUM SULFATE / D5W 1 GM/100 ML BAG IV SCH ×2 (19:25→21:18)
[2023-01-22 20:36] LABS: Urine Potassium 25.7 mmol/L
[2023-01-22 21:10] LABS: BUN Creatinine Ratio 9.8 (10-20); Calcium 8.7 mg/dl (8.6-10.3); Creatinine Clr Calc Pharmacy 174.3 ml/min; Est GFR (African American) 140.3 ml/min; Potassium 3.7 mmol/L (3.5-5.1)
[2023-01-22] MEDS ORDERED: LABETALOL HCL IV 5 MG/ML 20ML IV STA (21:40)
[2023-01-22] MEDS ORDERED: GABAPENTIN 600 MG TAB PO ONE (22:08)
[2023-01-22] MEDS ORDERED: GABAPENTIN 1200MG ALCOHOL WITHDRAWAL LOAD PO STA (22:08)
[2023-01-22] MEDS ORDERED: ACETAMINOPHEN 325 MG TAB PO PRN (22:08)
--- NOTE | 2023-01-22 22:42 | History & Physical Report ---
Date of Service January 22, 2023 Assessment & Plan (1) Alcohol abuse with withdrawal: (2) Weakness of both lower extremities: (3) Polyneuropathy: (4) Hypo-osmolar hyponatremia: (5) Elevated troponin: (6) HTN (hypertension): (7) NSVT (nonsustained ventricular tachycardia): (8) Alcoholic fatty liver: Plan #EtOH withdrawal #History of withdrawal seizure - Last drink: 01/21/2023 @ approximately 2000 - Withdrawal Hx: last seizures in - AWSS and close monitoring on telemetry -Start Gabapentin protocol -Start thiamine and folate supplementation #Elevated Troponin #Elevated CK #Prior NSVT -Previously elevated Trop likely related to CK, CK elevated iso fall/alcoholism; however, demand ischemia is possible given history of NSVT on prior admission -Monitor on tele -Trend Trop to peak, CK to peak -Repeat ECG pending -Replace electrolytes k >4, mag >2, phos > 3 -Resume initially started metoprolol 25 succ BID -Previously evaluated by Cards--encourage OP stress testing #Hypotonic Hyponatremia -appears euvolemic, ?SIADH v polygenic dyspepsia v poor solute intake (BUN 5, low cr) -Dilute urine, 217 -Ordered uric acid urine/serum -Fluid restrict 1 L -Trend BMP q 6 hours, net correction no more than 6-8 meq in 24 hours #Bilateral Lower extremity Weakness #Polyneuropathy, multifactorial #Deconditioning -CK elevated, but iso alcoholism and fall; notably strength intact in proximal muscles and no weakness on exam, however, patient declined to ambulate -Recent L4 compression fracture, and multiple chronic compression fractures -Miss OP neuro follow up -Ordered b12, folate -PT/OT -Consider OP referral for DEXA given multiple compression fractures -Supplement Vit D (never filled OP) #Hypertension -Restart previous amlodipine -Discuss options for medication at discharge, patient requests discussion with sister #Hepatic Steatosis iso ETOH -LFTs mild elevation, lower than previously documented values and no acute GI concerns -CTM DVT ppx with lovenox Heart healthy diet w/ 1 L FR replace lytes prn Admission and Anticipated Discharge Date Admission Date: Time spent evaluating patient, direct bedside care, chart review, placing orders, interpretation of diagnostic studies, discussion with consultants, patient, and family members, as well as other required patient management activities is 60 minutes. History of Present Illness Chief Complaint: Mr. Harley is a 57 year old gentleman with past medical history remarkable for alcohol abuse with prior withdrawal seizures, polyneuropathy thought to be 2/2 chronic etoh use and b12 deficiency, hypertension, NSVT, recent deconditioning requiring IP PT, who presented to [facility] ED due to bilateral lower extremity weakness. Patient states that he was in his usual state of health until suddenly on 01/21 around 1999, he felt both his legs just give out on him. He states he was on the floor in his room until sometime this afternoon, when he was able to get his sister to come and assist him, ultimately prompting his visit to the Ed. Patient occasionally tangential, but further questioning revealed that he has been drinking daily since end of October, since he was discharged from a rehab facility after a long admission complicated by 2 withdrawal seizures. Patient states after leaving rehab, he was unable to get any of his medications for blood pressure or vitamins. Patient mentions using a walker, but then states that he doesn't use a walker any longer--it was not clear the timeline as to when he decided to stop using walker given he would/could not give a direct answer. When asked about his alcohol intake, he does state his last drink was approximately ~1999, the time he felt his legs give out. Patient declined to give direct answer regarding volume of alcohol, digressing to his prior employment with [employer]. At the time of exam, patient states that he doesn't have any symptoms and he feels alright overall. He denies chest pain, lightheadedness, palpitations, syncopal episodes, or other neurologic symptoms. In the ED, vitals were notable for BP in the 170s, HR up to 100s, and O2 sat in high 90s on room air Imaging revealed mild ischemic microangiopathy, but no other acute mass effect Labs were notable for hyponatremia to 127, serum osom 264, CK to 984, trop 85.2, tsh 4.7/t4 0.89, urine osmo 217, utox negative EKG revealed tachycardia, high peaked t waves--but upon review of prior strips seem to be stable ED interventions: ativan x1, chlordiazepoxide x1, banana bag Patient to be admitted to Tele for further evaluation and management of bilateral extremity weakness and alcohol withdrawal Primary Care Provider: Bhavin Malcolm MD Allergies Allergy/AdvReac Type Severity Reaction Status Date / Time No Known Allergies Allergy Unverified 01/22/23 19:26 Home Medications Medication Instructions Recorded Confirmed Type amlodipine 5 mg tablet (Norvasc) 0 mg PO QAM 01/22/23 01/22/23 Rx cyanocobalamin (vitamin B-12) 500 0 mcg PO QAM 01/22/23 01/22/23 History mcg tablet ergocalciferol (vitamin D2) 1,250 0 unit PO Q7D 01/22/23 01/22/23 History mcg (50,000 unit) capsule folic acid 1 mg tablet 0 mg PO QAM 01/22/23 01/22/23 History metoprolol succinate 25 mg 0 mg PO BID 01/22/23 01/22/23 History tablet,extended release 24 hr nicotine 21 mg/24 hr daily 0 mg transdermal Q24H 01/22/23 01/22/23 History transdermal patch (Nicoderm CQ) thiamine HCl (vitamin B1) 100 mg 0 mg PO QAM 01/22/23 01/22/23 History tablet Past Med/Surg History Medical History (Updated 01/22/23 @ 22:41 by Jessika Morales MD) Alcohol abuse with withdrawal HTN (hypertension) Mood altered No pertinent family history No pertinent past medical history Seizure Surgical History (Updated 01/22/23 @ 22:05 by Jessika Morales MD) History of appendectomy Family History (Updated 01/22/23 @ 22:05 by Jessika Morales MD) Other Cancer Hypertension Social History (Updated 01/22/23 @ 22:03 by Jessika Morales MD) Smoking Status: Current some day smoker Tobacco Type: Cigarettes Cigarettes Per Day: "only when I'm drinking"; Do You Dip or Chew Tobacco: Yes; Hx Alcohol Use: Yes Alcohol type: beer Alcohol Intake Frequency: 2-3 x/Week Alcohol Intake Frequency Comment: Binge Drinker on the weekends Hx Substance Use: No Preferred Language: Sami Communication Ability: Effective Corporate Banking [employer] Required: No Beliefs That Will Affect Care: None Current Living Situation: Alone Current Living Situation Comment: Patient stated that his sister is able to assist with needs at home Feels Safe at Home: Yes Assistive Devices: Walker Review of Systems Review of Systems: Constitutional: (-) fever/chills, (-) recent loss of weight, (-) appetite changes, (-) night sweats. Head: (-) headache, (-) dizziness. Eye: (-) blurring of vision, (-) double vision, (-) redness. Ear: (-) hearing loss, (-) discharge, (-) vertigo Nose: (-) discharge, (-) bleeding, (-) congestion, (-) post nasal drip. Throat: (-) sore throat, (-) hoarseness of voice, (-) odynophagia. Cardiovascular: (-) chest pain, (-) palpitations, (-) syncope, (-) orthopnea, (- ) PND, (-) leg swelling. Respiratory: (-) shortness of breath, (-) cough, (-) wheezing, (-) hemoptysis. Neuro: (+) weakness in extremities, (+) numbness, (+) tingling, (-) tremor. Gastrointestinal: (-) belly pain, (-) belly distension, (-) nausea, (-) vomiting , (-) diarrhea, (-) constipation, (-) hematemesis, (-) hematochezia, (-) bowel incontinence Genitourinary: (-) hematuria, (-) dysuria, (-) polyuria, (-) hesitancy, (-) frequency, (-) urinary incontinence. Musculoskeletal: (-) myalgia, (-) arthralgia. Skin: (-) rashes. Endocrine: (-) heat/cold intolerance. Psychiatry: (-) depression, (-) hallucination. Physical Exam Physical Exam: GENERAL APPEARANCE: AxOx3, disheveled male, no acute distress. HEENT: NC, AT. MMM. EOMI, clear conjunctiva, oropharynx clear. NECK: Supple without lymphadenopathy. No stiffness or restricted ROM. HEART: tachycardic on examr LUNGS: CTAB, moving air well. No crackles or wheezes are heard. ABDOMEN: Soft, nontender, nondistended with good bowel sounds heard. BACK: No CVAT, no obvious deformity. EXTREMITIES: Without cyanosis, clubbing or edema. NEUROLOGICAL: Grossly nonfocal. Alert and oriented, moving all 4 extremities. CN appear grossly intact. patient declined to ambulate. FROM intact, strength 5/5 in upper/lower proximal and distal muscle groups, sensation intact Skin: multiple areas of ecchymosis and skin tear on bilateral forearms Results & Data Results & Data Vital Signs (Past 12 Hours) Vital Signs Temp Pulse Pulse Resp BP BP Pulse Ox 01/22/23 21:00 94 H 22 172/110 H 100 01/22/23 19:00 113 H 20 124/87 97 01/22/23 17:22 98 01/22/23 17:21 104 H 18 151/103 H 97 01/22/23 17:19 91 H 01/22/23 15:23 36.6 C 125 H 16 144/96 H 98 O2 Del Method 01/22/23 21:00 01/22/23 19:00 Room Air 01/22/23 17:22 Room Air 01/22/23 17:21 Room Air 01/22/23 17:19 01/22/23 15:23 Room Air Laboratory Results Laboratory Results WBC 10.35 K/ul (4.8-10.8) 01/22/23 16:10 RBC 4.82 M/uL (4.70-6.10) 01/22/23 16:10 Hgb 15.8 g/dl (14.0-18.0) 01/22/23 16:10 Hct 44.4 % (42.0-52.0) 01/22/23 16:10 MCV 92.1 fL (80.0-100.0) 01/22/23 16:10 MCH 32.8 pg (25.0-34.0) 01/22/23 16:10 MCHC 35.6 g/dL (32.0-36.0) 01/22/23 16:10 RDW Std Deviation 46.5 fL (36.4-46.3) H 01/22/23 16:10 RDW Coeff of Mallory 13.5 % (11.5-14.5) 01/22/23 16:10 Plt Count 237 K/uL (130-400) 01/22/23 16:10 MPV 8.8 fL (9.4-12.4) L 01/22/23 16:10 Immature Gran % (Auto) 0.8 % 01/22/23 16:10 Neut % (Auto) 81.1 % 01/22/23 16:10 Lymph % (Auto) 10.3 % 01/22/23 16:10 [place] % (Auto) 6.7 % 01/22/23 16:10 Eos % (Auto) 0.4 % 01/22/23 16:10 Baso % (Auto) 0.7 % 01/22/23 16:10 Neut # (Auto) 8.40 K/uL (1.40-6.50) H 01/22/23 16:10 Lymph # (Auto) 1.07 K/uL (1.20-3.40) L 01/22/23 16:10 [place] # (Auto) 0.69 K/uL (0.11-0.59) H 01/22/23 16:10 Eos # (Auto) 0.04 K/uL (0.00-0.50) 01/22/23 16:10 Baso # (Auto) 0.07 K/uL (0.00-0.20) 01/22/23 16:10 Immature Gran # (Auto) 0.08 K/uL (0.01-0.20) 01/22/23 16:10 PT 11.4 Seconds (9.0-12.0) 01/22/23 16:10 INR 1.0 (0.9-1.1) 01/22/23 16:10 APTT 30.4 Seconds (21.0-31.0) 01/22/23 16:10 PTT Ratio 1.1 01/22/23 16:10 Sodium 128 mmol/L (136-145) L 01/22/23 20:21 Potassium 3.7 mmol/L (3.5-5.1) 01/22/23 20:21 Chloride 97 mmol/L (98-107) L 01/22/23 20:21 Carbon Dioxide 21 mmol/L (21-32) 01/22/23 20:21 Anion Gap 10 (3-11) 01/22/23 20:21 BUN 5 mg/dl (6-23) L 01/22/23 20:21 Creatinine 0.51 mg/dl (0.6-1.4) L 01/22/23 20:21 Est Cr Clr Drug Dosing 174.3 ml/min 01/22/23 20:21 Est GFR ( Amer) 140.3 ml/min 01/22/23 20:21 Est GFR (Non-Af Amer) 121.0 ml/min 01/22/23 20:21 BUN/Creatinine Ratio 9.8 (10-20) L 01/22/23 20:21 Glucose 87 mg/dl (70-99(Fasting)) 01/22/23 20:21 Osmolality 264 mOsm/kg (280-300) L 01/22/23 16:10 Calcium 8.7 mg/dl (8.6-10.3) 01/22/23 20:21 Magnesium 1.8 mg/dl (1.7-2.4) 01/22/23 16:10 Total Bilirubin 1.3 mg/dl (0.2-1.0) H 01/22/23 16:10 AST 58 U/L (13-39) H 01/22/23 16:10 ALT 18 U/L (7-52) 01/22/23 16:10 Alkaline Phosphatase 106 U/L (34-104) H 01/22/23 16:10 Total Creatine Kinase 984 U/L (30-223) H 01/22/23 16:10 Troponin I High Sens 85.2 pg/ml (0-20) H* 01/22/23 16:10 Total Protein 8.3 gm/dl (6.0-8.3) 01/22/23 16:10 Albumin 4.2 gm/dl (3.4-5.0) 01/22/23 16:10 Globulin 4.1 gm/dl (2.5-4.0) H 01/22/23 16:10 Albumin/Globulin Ratio 1.0 (0.9-2) 01/22/23 16:10 Lipase 12 U/L (11-82) 01/22/23 16:10 TSH 4.702 uIu/ml (0.300-4.500) H 01/22/23 16:10 Free T4 0.89 ng/dl (0.61-1.60) 01/22/23 16:10 Urine Color [place] 01/22/23 15:37 Urine Appearance Clear (Clear) 01/22/23 15:37 Urine pH 5.5 (4.5-7.5) 01/22/23 15:37 Ur Specific [place] 1.016 (1.000-1.030) 01/22/23 15:37 Urine Protein Negative (Negative) 01/22/23 15:37 Urine Glucose (UA) Negative (Negative) 01/22/23 15:37 Urine Ketones 2+ (Negative) H 01/22/23 15:37 Urine Blood Negative (Negative) 01/22/23 15:37 Urine Nitrite Positive (Negative) A 01/22/23 15:37 Urine Bilirubin 1+ (Negative) H 01/22/23 15:37 Urine Urobilinogen Negative (Negative) 01/22/23 15:37 Ur Leukocyte Esterase Negative (Negative) 01/22/23 15:37 Urine WBC (Auto) 1-5 /hpf (0-5) 01/22/23 15:37 Urine RBC (Auto) 0-4 /hpf (0-4) 01/22/23 15:37 U Hyaline Cast (Auto) 5-10 /lpf (0-5) H 01/22/23 15:37 U Epithel Cells (Auto) 10-20 /lpf (0-5) H 01/22/23 15:37 Urine Bacteria (Auto) Negative (Negative) 01/22/23 15:37 Urine Osmolality 217 mOsm/kg (500-800) L 01/22/23 19:30 Urine Sodium 21 mmol/L 01/22/23 19:30 Urine Potassium 25.7 mmol/L 01/22/23 19:30 Urine Chloride 33 mmol/L 01/22/23 19:30 Urine Opiates Screen Neg (Neg) 01/22/23 15:37 Ur Methadone, Qual Neg (Neg) 01/22/23 15:37 Urine Barbiturates Neg (Neg) 01/22/23 15:37 Ur Phencyclidine (PCP) Neg (Neg) 01/22/23 15:37 U Amphetamin/Meth Scrn Neg (Neg) 01/22/23 15:37 MDMA (Ecstasy) Screen Neg (Neg) 01/22/23 15:37 U Benzodiazepines Scrn Neg (Neg) 01/22/23 15:37 Ur Cocaine Metabolite Neg (Neg) 01/22/23 15:37 U Marijuana (THC) Screen Neg (Neg) 01/22/23 15:37 Ethyl Alcohol mg/dL < 10.0 mg/dl (<10.0) 01/22/23 17:12 Lyme Disease IgG Ab Negative (Negative) 01/22/23 16:10 Lyme Disease IgM Ab Negative (Negative) 01/22/23 16:10 Impressions Chest X-Ray 01/22/23 15:29 XR chest 1V not portable HISTORY: weakness COMPARISON: None. FINDINGS: No pneumothorax. No pleural effusions. The heart is normal in size. No focal lung consolidations to suggest a pneumonia. No evidence for pulmonary edema. Multiple old bilateral rib fractures are again noted. IMPRESSION: No acute process. ACT 112: Negative or not required by law. Electronically signed by: Kaden Rainey M.D. 01/22/2023 5:[address] 01/22/23 18:03 Exam(s): CT HEAD Without Contrast EXAM: CT Head Without Intravenous Contrast CLINICAL HISTORY: Reason for exam: L sided CHI, alcohol use. TECHNIQUE: Axial computed tomography images of the head/brain without intravenous contrast. CTDI is 38.49 mGy and DLP is 624.41 mGy-cm. Automated exposure control was utilized for the study. A dose lowering technique was utilized adhering to the principles of ALARA. COMPARISON: 11/15/2022 FINDINGS: Brain: Mild ischemic microangiopathy. Age appropriate cerebral volume loss. No hemorrhage. Ventricles: Unremarkable. No ventriculomegaly. Bones/joints: Unremarkable. No acute fracture. Soft tissues: Unremarkable. Sinuses: Unremarkable as visualized. No acute sinusitis. Mastoid air cells: Unremarkable as visualized. No mastoid effusion. IMPRESSION: Head CT negative for acute intracranial abnormality. Mild chronic senescent changes as described above. Electronically signed by: Rodrigo Rodas MD 01/22/23 19:09 PM Diagnostic Findings I personally reviewed labs from admission and prior labs which revealed a baseline hyponatremia, roughly in the 130s, lfts roughly at baseline. I personally reviewed historic imaging, to include a brain mri from 10/2022 that demonstrated chronic microangiopathic changes, c/w description of CT from admission. I reviewed ECHO from 10/2022, which revealed signs of diastolic dysfunction with EF 60%, dilated aorta with mild aortic regurtitation Medications Administered Magnesium Sulfate/Dextrose (Magnesium Sulfate / D5w) 1 gm in 100 mls @ 50 mls/hr IV Q2H CHELSEY Stop: 01/22/23 23:14 Last Admin: 01/22/23 21:18 Dose: 50 mls/hr Documented By: Infusion: 01/22/23 20:15 Dose: 0 mls/hr Documented By: Admin: 01/22/23 19:25 Dose: 50 mls/hr Documented By: BARBER Code Status & VTE Plan Code Status Full Code VTE Prophylaxis Plan VTE Prophylaxis will be ordered: Yes
[2023-01-22] MEDS: METOPROLOL SUCC 25MG EXT REL TAB PO SCH (22:53)
[2023-01-22] MEDS: NICOTINE 21 MG/24 HR TDSY TD SCH (22:54)
[2023-01-22] MEDS: ENOXAPARIN INJ 40 MG/0.4 ML SYR SQ SCH (22:56)
[2023-01-22 23:19] LABS: Uric Acid 5.7 mg/dl (2.6-7.2)
[2023-01-22 23:55] LABS: Troponin I High Sensitivity 74.3 pg/ml (0-20)
[2023-01-23 02:58] LABS: Albumin Level 3.2 gm/dl (3.4-5.0); BUN Creatinine Ratio 9.6 (10-20); Bilirubin Direct 0.2 mg/dl (0-0.2); Calcium 8.5 mg/dl (8.6-10.3); Creatinine Clr Calc Pharmacy 154.6 ml/min; Est GFR (African American) 139.1 ml/min; Est GFR (Non-African American) 120.1 ml/min; Magnesium 2.2 mg/dl (1.7-2.4); Phosphorus 3.2 mg/dl (2.5-4.9); Potassium 3.2 mmol/L (3.5-5.1); Total Protein 6.3 gm/dl (6.0-8.3)
[2023-01-23 03:13] LABS: Folate (Folic Acid),Ser orPlas > 22.30 ng/ml (>5.38)
[2023-01-23 03:14] LABS: Troponin I High Sensitivity 62.5 pg/ml (0-20); Vitamin B12 360 pg/ml (180-914)
[2023-01-23 03:15] LABS: Hematocrit (blood only) 35.4 % (42.0-52.0); Hemoglobin 12.5 g/dl (14.0-18.0); Mean Corpuscular Hemoglobin 32.6 pg (25.0-34.0); Mean Corpuscular Hgb Conc 35.3 g/dL (32.0-36.0); Mean Corpuscular Volume 92.4 fL (80.0-100.0); Platelet Count 197 K/uL (130-400); RDW Coefficient of Variation 13.6 % (11.5-14.5); RDW Standard Deviation 46.4 fL (36.4-46.3); Red Blood Count 3.83 M/uL (4.70-6.10)
[2023-01-23] MEDS: GABAPENTIN 600 MG TAB PO SCH ×3 (03:21→16:08)
[2023-01-23] MEDS: METOPROLOL SUCC 25MG EXT REL TAB PO SCH (08:26)
[2023-01-23] MEDS: FOLIC ACID 1 MG TAB PO SCH (08:26)
[2023-01-23] MEDS: THIAMINE HCL 100 MG TAB PO SCH (08:26)
[2023-01-23] MEDS: NICOTINE 21 MG/24 HR TDSY TD SCH (08:26)
[2023-01-23 09:00] LABS: BUN Creatinine Ratio 9.3 (10-20); Calcium 8.9 mg/dl (8.6-10.3); Creatinine Clr Calc Pharmacy 157.5 ml/min; Est GFR (Non-African American) 118.2 ml/min; Potassium 3.5 mmol/L (3.5-5.1)
[2023-01-23] MEDS ORDERED: amLODIPine BESYLATE 5 MG TAB PO SCH (09:00)
[2023-01-23] MEDS ORDERED: POTASSIUM CHLORIDE CRTAB 20 MEQ TABCR PO ONE (09:05)
[2023-01-23] MEDS: NSS + 20MEQ KCL 20 MEQ/1,000 ML BAG IV SCH ×2 (10:04→19:25)
[2023-01-23] MEDS: CYANOCOBALAMIN (B-12) 500 MCG TABLET PO SCH (10:04)
--- NOTE | 2023-01-23 10:28 | Cardiology Consultation ---
Date of Consultation January 23, 2023 Assessment & Plan (1) Paresthesia of bilateral legs: (2) Alcohol abuse with withdrawal: (3) Hyponatremia: (4) Alcoholic fatty liver: (5) Sinus tachycardia: (6) Elevated troponin: Plan Nonsustained ventricular tachycardia. Personal review of the continuous monitoring and evaluation advisor shows sinus/sinus tachycardia. No wide-complex tachyarrhythmias. No ventricular tachycardia. Review of the rhythm strip in question is actually for a different patient. Elevated high-sensitivity troponin. Abnormal EKG. Patient asymptomatic. Repeat EKG. Refer for resting echocardiography. Continue metoprolol. Likely outpatient stress testing Hypertension. Continue metoprolol as advised. Given observed hypotension, reduce amlodipine dosing. Borderline potassium. Supplement potassium. Supervising Physician Co-Signing Physician Notes Patient seen and examined at the bedside. Admitted secondary to alcohol withdrawal and lower extremity weakness. Cardiology consultation requested for evaluation of nonsustained ventricular tachycardia. Telemetry reviewed. There is no evidence of ventricular tachycardia. Echocardiogram demonstrating asymmetric left ventricular hypertrophy involving the septum with mitral valve Chencho and LVOT gradient. Findings suggest hypertrophic cardiomyopathy. Patient denies chest pain or unusual shortness of breath. No syncope or near syncope. Denies family history of cardiomyopathy or sudden cardiac . PE: VSS. Gen: NAD. AAO x3. Heart: Regular rhythm. normal S1S2. 2/6 MONA. Lungs: Clear bilateral. No rales, rhonchi, wheeze. Extremities: No edema. + LE Muscle wasting. A/P: Agree with above PA-C history, physical exam, assessment and plan with the following additions. Echocardiogram demonstrates asymmetric left ventricular hypertrophy suggestive of hypertrophic cardiomyopathy. Recommend titration of Toprol-XL to 50 mg in the a.m., 25 mg in the evening. Amlodipine will remain on hold. Continue telemetry monitoring. Supplement electrolytes as indicated. I discussed the natural history and pathophysiology of hypertrophic cardiomyopathy with patient. Recommend cardiac MRI and genetic testing in the outpatient setting. Consider 14-day electronic device monitor. Encourage compliance with medical therapies including beta-kandice. Abstinence from alcohol encouraged. All questions answered to patient's satisfaction. History of Present Illness Reason for Consultation: NSVT Requesting Physician: Dr. Farrell Attending Physician: Dr. Farrell History of Present Illness Mr. Leonardo Harley is a 57-year-old male who presented to [facility] on January 22, 2023, evaluation of bilateral below the knee lower extremity paresthesias, worse over the last few days with resultant fall, laying on the ground from approximately 9-10 PM until 1-2 in the afternoon the next day. Initial blood pressure was 144/96, rising to a high of 172/110. Current blood pressure is 95/64 Admission EKG revealed sinus tachycardia at 119 bpm with possible left atrial enlargement, LVH, possible inferior and anterolateral infarcts. QTc 464 ms. CPK 603 U/L. High-sensitivity troponin I elevated at 85.2 then 74.3 then 62.5 p g/mL Cardiology consultation requested due to observed nonsustained ventricular tachycardia. Personal review of the continuous monitoring and evaluation advisor shows sinus/sinus tachycardia. No wide-complex tachyarrhythmias. No ventricular tachycardia observed. Review of the concerning rhythm strip shows that this is for a another patient and is actually a supraventricular tachycardia. Patient denies chest pain or discomfort, palpitations, shortness of breath, orthopnea, PND, peripheral edema, syncope. Past Medical and Surgical History: Chronic alcohol use/abuse Lower extremity neuropathy Hyponatremia Fatty liver Hypertension Dyslipidemia Lumbosacral degenerative disc disease Spondylolisthesis and right shoulder dislocation Right sided rib fractures in 2017 Family History: Unknown to the patient. Chart review reveals a history of breast cancer in mother and hypertension in father. Social History: Smoker, cigarettes, since his teenage years, 1 pack every 2.5 days. Reformed smokeless tobacco user. Alcohol: 6-8 beers per day with significantly higher intake on the weekends. Employed by [employer]. Complete Review of Systems: Constitutional: No fevers. No chills. HEENT: No amaurosis fugax. Hard of hearing. Pulmonary: Denies COPD. Denies sleep apnea. Denies history of pulmonary embolism. Cardiac: No prior cardiac history. GI/Abd: No dysphagia. No melana or hematochezia. Denies kidney problems. Vascular: Denies history of carotid disease, AAA, or lower extremity claudication Hematologic: No coagulation disorder. Musculoskeletal: Chronic back pain. Bilateral shoulder pain. Bilateral leg weakness. Neurologic: + Seizure. No history of TIA or CVA Endocrine: Denies DM or thyroid problems. Complete Review of Systems is as stated above, negative, or noncontributory. Allergies Allergy/AdvReac Type Severity Reaction Status Date / Time No Known Allergies Allergy Unverified 01/22/23 19:26 Home Medications Medication Instructions Recorded Confirmed Type amlodipine 5 mg tablet (Norvasc) 0 mg PO QAM 01/22/23 01/22/23 Rx cyanocobalamin (vitamin B-12) 500 0 mcg PO QAM 01/22/23 01/22/23 History mcg tablet ergocalciferol (vitamin D2) 1,250 0 unit PO Q7D 01/22/23 01/22/23 History mcg (50,000 unit) capsule folic acid 1 mg tablet 0 mg PO QAM 01/22/23 01/22/23 History metoprolol succinate 25 mg 0 mg PO BID 01/22/23 01/22/23 History tablet,extended release 24 hr nicotine 21 mg/24 hr daily 0 mg transdermal Q24H 01/22/23 01/22/23 History transdermal patch (Nicoderm CQ) thiamine HCl (vitamin B1) 100 mg 0 mg PO QAM 01/22/23 01/22/23 History tablet Patient History Medical History (Updated 01/23/23 @ 11:04 by Ashwini Landis MD, PhD) Alcohol abuse with withdrawal Chronic hyponatremia HTN (hypertension) Mood altered No pertinent family history Seizure Surgical History History of appendectomy Family History Other Cancer Hypertension Social History Smoking Status: Current some day smoker Tobacco Type: Cigarettes Cigarettes Per Day: "only when I'm drinking"; Do You Dip or Chew Tobacco: Yes; Tobacco Cessation Education Requested by Patient: No Hx Alcohol Use: Yes Alcohol type: beer Alcohol Intake Frequency: 2-3 x/Week Alcohol Intake Frequency Comment: Binge Drinker on the weekends Hx Substance Use: No Preferred Language: Japanese Communication Ability: Effective Channeler Outsole Required: No Beliefs That Will Affect Care: None Current Living Situation: Alone Current Living Situation Comment: Patient stated that his sister is able to assist with needs at home Other Information That Helps Us Care for You: No Feels Safe at Home: Yes Safety Concerns: Feels Safe At This Time Assistive Devices: Walker Review of Systems Review of Systems: See above. Physical Exam Physical Exam: General: Alert and oriented to person and place. NAD. NAYLAT: Normocephalic. Atraumatic. Unequal pupils. Neck: No carotid bruits. No JVD. No HJR. Heart: Regular at 86 bpm. Grade I/ systolic murmur. No diastolic murmur. No rub. PMI is nondisplaced. Lungs: Clear to auscultation. No wheeze. Abdomen: +BS. Soft. Nontender. No masses or organomegaly. Extremities: Multiple excoriations and ecchymoses. No cellulitis. No clubbing. No cyanosis. No edema. Pulses: radial=2/4, posterior tibial=1/4. Results & Data Vital Signs (Past 12 Hours) Vital Signs Temp Pulse Pulse Resp BP BP Pulse Ox 01/23/23 07:14 36.6 C 72 20 95/64 L 99 01/23/23 05:39 74 98/60 L 01/23/23 03:25 36.4 C L 76 18 93/61 L 100 01/22/23 23:10 85 110/75 01/22/23 22:55 88 162/94 H O2 Del Method 01/23/23 07:14 Room Air 01/23/23 05:39 01/23/23 03:25 Room Air 01/22/23 23:10 01/22/23 22:55 Laboratory Results Cardiac Enzymes 01/22/23 01/22/23 01/23/23 Range/Units 16:10 22:20 01:59 AST 58 H 36 (13-39) U/L Troponin I High Sens 85.2 H* 74.3 H* D 62.5 H* D (0-20) pg/ml Coagulation 01/22/23 Range/Units 16:10 PT 11.4 (9.0-12.0) Seconds APTT 30.4 (21.0-31.0) Seconds CBC 01/22/23 01/23/23 Range/Units 16:10 01:59 WBC 10.35 7.50 (4.8-10.8) K/ul RBC 4.82 3.83 L (4.70-6.10) M/uL Hgb 15.8 12.5 L D (14.0-18.0) g/dl Hct 44.4 35.4 L (42.0-52.0) % Plt Count 237 197 (130-400) K/uL Neut # (Auto) 8.40 H (1.40-6.50) K/uL Lymph # (Auto) 1.07 L (1.20-3.40) K/uL Price # (Auto) 0.69 H (0.11-0.59) K/uL Eos # (Auto) 0.04 (0.00-0.50) K/uL Baso # (Auto) 0.07 (0.00-0.20) K/uL Comprehensive Metabolic Panel 01/22/23 01/22/23 01/23/23 Range/Units 16:10 20:21 01:59 Sodium 126 L 128 L 129 L (136-145) mmol/L Potassium 4.2 3.7 3.2 L (3.5-5.1) mmol/L Chloride 91 L 97 L 100 (98-107) mmol/L Carbon Dioxide 22 21 23 (21-32) mmol/L BUN 5 L 5 L 5 L (6-23) mg/dl Creatinine 0.64 0.51 L 0.52 L (0.6-1.4) mg/dl Glucose 86 87 90 (70-99(Fasting)) mg/dl Calcium 10.2 8.7 8.5 L (8.6-10.3) mg/dl Direct Bilirubin 0.2 (0-0.2) mg/dl AST 58 H 36 (13-39) U/L ALT 18 13 (7-52) U/L Alkaline Phosphatase 106 H 77 (34-104) U/L Total Protein 8.3 6.3 D (6.0-8.3) gm/dl Albumin 4.2 3.2 L (3.4-5.0) gm/dl 01/23/23 Range/Units 08:03 Sodium 129 L (136-145) mmol/L Potassium 3.5 (3.5-5.1) mmol/L Chloride 100 (98-107) mmol/L Carbon Dioxide 23 (21-32) mmol/L BUN 5 L (6-23) mg/dl Creatinine 0.54 L (0.6-1.4) mg/dl Glucose 89 (70-99(Fasting)) mg/dl Calcium 8.9 (8.6-10.3) mg/dl Direct Bilirubin (0-0.2) mg/dl AST (13-39) U/L ALT (7-52) U/L Alkaline Phosphatase (34-104) U/L Total Protein (6.0-8.3) gm/dl Albumin (3.4-5.0) gm/dl Intake and Output 01/22/23 01/23/23 01/23/23 22:59 06:59 14:59 Intake Total 2111.2 / 2761.2 650 / 2761.2 Balance 2111.2 / 2761.2 650 / 2761.2 Intake: IV 2111.2 / 2211.2 100 / 2211.2 Magnesium Sulfate / D5w 1 gm In 100 / 200 100 / 200 100 ml @ 50 mls/hr IV Q2H [facility] Rx#:[id number] Multi-Vitamin Infusion 10 ml 1011.2 / 1011.2 Thiamine HCl 100 mg Folic Acid 1 mg In Sodium Chloride 0.9% 1000ML 1,000 ml @ 500 mls/hr IV .Q2H2M ONE Rx#:[id number] Sodium Chloride 0.9% 1000ML 1, 1000 / 1000 000 ml @ 999 mls/hr IV .Q1H1M ONE Rx#:[id number] Oral 550 / 550 Other: Weight 68.084 kg 72.05 kg Weight Measurement Method Built in [facility] Built in [facility] Diagnostic Findings Resting echocardiography on November 16, 2022 demonstrated the following: Normal LV systolic function. Ejection fraction 65 to 70%. Mild concentric left ventricular hypertrophy. Focal thickening of the basal septum with no evidence of left ventricular outflow obstruction. Grade 1 diastolic dysfunction. Mild aortic regurgitation. Mild aortic root dilatation.
--- NOTE | 2023-01-23 10:49 | Nephrology Consultation ---
Date of Consultation January 23, 2023 Assessment & Plan (1) Labile blood pressure: currently receiving a 2L saline bolus >>monitor BP during/post resuscitation >f/u cardiology recs >continue to hold antihypertensives >recheck bmp about 2 hrs after completion of NS Plan Hypotonic hyponatremia Based on admission labs this is most recently due to polydipsia on a background of chronic hyponatremia likely from chronic low solute diet; however concern w/ abrupt drop in BP as well which takes clinical precedent. Started fluid limit 1.5 L daily Target sodium for tomorrow a.m. is 135 or less Maintain eukalemia History of Present Illness Reason for Consultation: Hyponatremia Requesting Physician: Dr. Farrell Attending Physician: Mahesh Farrell MD History of Present Illness 57-year-old male whom I am asked to see for hyponatremia was admitted yesterday for management of alcohol withdrawal after presenting with abrupt onset lower extremity weakness bilaterally and inability to get up after slipping to the floor. Past medical history includes daily alcohol abuse with history of 2 withdrawal seizures October 2022, polyneuropathy attributed to chronic alcohol and to B12 deficiency, chronic hyponatremia, hypertension, nonsustained V. tach, recent deconditioning requiring inpatient physical therapy October 2022. His presenting sodium was 126 at 1600 yesterday. It is up to 129 this morning at 0800. Serum osms were 264 on presentation, urine osmolality 217 and urine sodium 21. The patient reported that after hospital discharge he was unable to access any of his blood pressure medications. He had 10 mg of IV labetalol last evening x1. Has not had any of his other home antihypertensives including no amlodipine or metoprolol. His blood pressures on presentation yesterday were in the 140s to 160s systolic. Today however they are more in the 90s. In the ER he had a liter of normal saline and a banana bag. He is currently receiving 2 L of normal saline with 20 mill equivalents per liter of potassium. He also received 40 mill equivalents of potassium p.o. this morning. he c/o BL leg pain since he fell in addition to leg weakness. denies dizziness, n/v/d, denies dysuria gross hematuria or other voiding issues; no cough; no edema. Allergies Allergy/AdvReac Type Severity Reaction Status Date / Time No Known Allergies Allergy Unverified 01/22/23 19:26 Home Medications Medication Instructions Recorded Confirmed Type amlodipine 5 mg tablet (Norvasc) 0 mg PO QAM 01/22/23 01/22/23 Rx cyanocobalamin (vitamin B-12) 500 0 mcg PO QAM 01/22/23 01/22/23 History mcg tablet ergocalciferol (vitamin D2) 1,250 0 unit PO Q7D 01/22/23 01/22/23 History mcg (50,000 unit) capsule folic acid 1 mg tablet 0 mg PO QAM 01/22/23 01/22/23 History metoprolol succinate 25 mg 0 mg PO BID 01/22/23 01/22/23 History tablet,extended release 24 hr nicotine 21 mg/24 hr daily 0 mg transdermal Q24H 01/22/23 01/22/23 History transdermal patch (Nicoderm CQ) thiamine HCl (vitamin B1) 100 mg 0 mg PO QAM 01/22/23 01/22/23 History tablet Patient History Medical History (Updated 01/23/23 @ 11:04 by Ashwini Landis MD, PhD) Alcohol abuse with withdrawal Chronic hyponatremia HTN (hypertension) Mood altered No pertinent family history Seizure Surgical History History of appendectomy Family History Other Cancer Hypertension Social History Smoking Status: Current some day smoker Tobacco Type: Cigarettes Cigarettes Per Day: "only when I'm drinking"; Do You Dip or Chew Tobacco: Yes; Tobacco Cessation Education Requested by Patient: No Hx Alcohol Use: Yes Alcohol type: beer Alcohol Intake Frequency: 2-3 x/Week Alcohol Intake Frequency Comment: Binge Drinker on the weekends Hx Substance Use: No Preferred Language: Panamanian Communication Ability: Effective Facilities Engineer Required: No Beliefs That Will Affect Care: None Current Living Situation: Alone Current Living Situation Comment: Patient stated that his sister is able to assist with needs at home Other Information That Helps Us Care for You: No Feels Safe at Home: Yes Safety Concerns: Feels Safe At This Time Assistive Devices: Walker Review of Systems Review of Systems: All systems reviewed & are unremarkable except as noted in HPI & below Physical Exam Constitutional: well developed, average body habitus and + disheveled; no acute distress Eyes: EOM intact bilaterally ENMT: Ears: no external ear abnormality Nose: no external nose abnormality Mouth: + dry oral mucous membranes Neck: no nuchal rigidity Respiratory: normal respiratory effort Auscultation: + diminished lung sounds Cardiovascular: RRR, no murmur, no edema Gastrointestinal (Abdomen): Inspection/Auscultation: normal bowel sounds Percussion/Palpation: abdomen soft; abdomen nontender Musculoskeletal: Extremities: strength 5/5 throughout Skin: no rashes, warm and dry Neurologic: garza, fluent speech, no tremor Psychiatric: Orientation: alert and oriented x 3 Speech: normal rate/rhythm/volume of speech Affect: + blunted affect and + irritable affect Results & Data Vital Signs (Past 12 Hours) Vital Signs Temp Pulse Pulse Resp BP BP Pulse Ox 01/23/23 07:14 36.6 C 72 20 95/64 L 99 01/23/23 05:39 74 98/60 L 01/23/23 03:25 36.4 C L 76 18 93/61 L 100 01/22/23 23:10 85 110/75 01/22/23 22:55 88 162/94 H O2 Del Method 01/23/23 07:14 Room Air 01/23/23 05:39 01/23/23 03:25 Room Air 01/22/23 23:10 01/22/23 22:55 Laboratory Results 01/23/23 01:59 01/23/23 08:03 CK6 103 Troponin 63 TSH 4.7 Urinalysis orange clear urine pH 5.5 and specific gravity of 1016. 2+ ketones positive nitrites 1+ bilirubin 5-10 epithelial cells no bacteria other indices negative Diagnostic Findings Chest x-ray without acute process Head CT with chronic microvascular changes but no acute process
--- NOTE | 2023-01-23 15:43 | Hospitalist Progress Note ---
Date of Service January 23, 2023 Assessment & Plan (1) Alcohol abuse with withdrawal: (2) Weakness of both lower extremities: (3) Polyneuropathy: (4) Hypo-osmolar hyponatremia: (5) Elevated troponin: (6) HTN (hypertension): (7) NSVT (nonsustained ventricular tachycardia): (8) Alcoholic fatty liver: Plan Alcohol withdrawal H/O Alcohol withdrawal seizure Last Alcohol drink: 01/21/2023 @ approximately 2000 Continue alcohol withdrawal protocol with gabapentin Continue thiamine, folic acid Monitor for withdrawal Generalized weakness Ambulatory dysfunction Likely multifactorial: Alcohol use, hyponatremia, peripheral neuropathy Elevated CK levels --CT Head:Head CT negative for acute intracranial abnormality. Mild chronic senescent changes as described above. Normal vitamin B12 levels Mildly elevated TSH, normal free T4 Continue IV fluids Fall precautions PT OT Acute on chronic hyponatremia Hypotonic hyponatremia DD: Polydipsia, chronic low solute diet, alcohol use Sodium level 126>129 Continue fluid restriction Given hypotension, will give IV fluids Monitor sodium levels Appreciate nephrology input Hypertrophic cardiomyopathy Chronic Troponin elevation Sinus tachycardia H/O NSVT --ECHO: EF 65 to 70%. Mild concentric LVH. Asymmetric left ventricular hypertrophy involving the basal septum with maximal diameter of 1.7 cm. Resting LVOT gradient 53 mmHg. Systolic anterior motion of the mitral valve. Mild mitral regurgitation. Mitral regurgitant jet is posteriorly directed. Hold amlodipine for now Continue metoprolol as per cardiology: Uptitrated metoprolol succinate 50 mg QAM, 25 QPM Appreciate cardiology input Needs alcohol cessation Needs cardiac MRI and genetic testing as outpatient Needs 14-day equipment monitor phototypesetting on discharge Nocturnal hypoxia Continue supplemental oxygen at bedtime Hypertension BP low Continue metoprolol Hold amlodipine for now Monitor Hepatic Steatosis LFTs mild elevation Avoid hepatotoxic agents as able Monitor DVT Px: Lovenox SQ CODE STATUS Full Code Admission and Anticipated Discharge Date Admission Date: January 22, 2023 Subjective Patient is seen and examined at bedside States having bilateral lower extremity weakness resulting in ambulatory dysfunction Denies any withdrawal symptoms Also denies any chest pain, dyspnea, dizziness, nausea, vomiting, abdominal pain Review of Systems Review of Systems: All systems reviewed & are unremarkable except as noted in Subjective Physical Exam Physical Exam: Physical Exam: Vitals signs as noted above General Appearance:Moderately built and nourished, no apparent distress Head: normocephalic, Atraumatic Eyes: normal inspection, EOMI Neck: supple, Trachea midline Respiratory/Chest: Normal breath sounds, CTA, No accessory muscle use Cardiovascular: S1, S2, + murmur Abdomen/GI:Soft, Non tender, Bowel sounds present Extremities/Musculoskeletal:normal inspection, no edema Neurologic/Psych:AAOX3, grossly no focal neurological deficits, + mild hearing impairment Skin: normal color, warm,+ excoriations, ecchymosis Results & Data Results & Data Vital Signs (Past 12 Hours) Vital Signs Temp Pulse Resp BP Pulse Ox O2 Del Method 01/23/23 11:05 36.2 C L 70 20 107/72 99 Room Air 01/23/23 07:14 36.6 C 72 20 95/64 L 99 Room Air 01/23/23 05:39 74 98/60 L Laboratory Results Short CBC 01/22/23 01/23/23 Range/Units 16:10 01:59 WBC 10.35 7.50 (4.8-10.8) K/ul Hgb 15.8 12.5 L D (14.0-18.0) g/dl Hct 44.4 35.4 L (42.0-52.0) % Plt Count 237 197 (130-400) K/uL BMP 01/22/23 01/22/23 01/23/23 16:10 20:21 01:59 Sodium 126 L 128 L 129 L Potassium 4.2 3.7 3.2 L Chloride 91 L 97 L 100 Carbon Dioxide 22 21 23 BUN 5 L 5 L 5 L Creatinine 0.64 0.51 L 0.52 L Glucose 86 87 90 Calcium 10.2 8.7 8.5 L 01/23/23 08:03 Sodium 129 L Potassium 3.5 Chloride 100 Carbon Dioxide 23 BUN 5 L Creatinine 0.54 L Glucose 89 Calcium 8.9 Cardiac Enzymes 01/22/23 01/22/23 Range/Units 16:10 22:20 Total Creatine Kinase 984 H 603 H (30-223) U/L Liver Function 01/22/23 01/23/23 Range/Units 16:10 01:59 Total Bilirubin 1.3 H 1.0 (0.2-1.0) mg/dl Direct Bilirubin 0.2 (0-0.2) mg/dl AST 58 H 36 (13-39) U/L ALT 18 13 (7-52) U/L Alkaline Phosphatase 106 H 77 (34-104) U/L Albumin 4.2 3.2 L (3.4-5.0) gm/dl Urine 01/22/23 Range/Units 15:37 Urine Color [place] Urine Appearance Clear (Clear) Urine pH 5.5 (4.5-7.5) Ur Specific [place] 1.016 (1.000-1.030) Urine Protein Negative (Negative) Urine Glucose (UA) Negative (Negative)
--- NOTE | 2023-01-23 15:45 | Electrocardiogram Report ---
Test Reason : Blood Pressure : / mmHG Vent. Rate : 119 BPM Atrial Rate : 119 BPM P-R Int : 148 ms QRS Dur : 080 ms QT Int : 330 ms P-R-T Axes : 056 028 064 degrees QTc Int : 464 ms Sinus tachycardia Left atrial enlargement Left ventricular hypertrophy Nondiagnostic inferior Q waves Cannot rule out Anteroseptal infarct , age undetermined Abnormal ECG When compared with ECG of 19-NOV-2022 03:07, Vent. rate has increased BY 41 BPM Criteria for Anteroseptal infarct now present Confirmed by Hank Linder ([id number]) on 01/23/2023 3:45:50 PM Referred By: REFERRED SELF Confirmed By:Hank Linder
--- NOTE | 2023-01-23 15:48 | Electrocardiogram Report ---
Test Reason : Blood Pressure : / mmHG Vent. Rate : 078 BPM Atrial Rate : 078 BPM P-R Int : 168 ms QRS Dur : 092 ms QT Int : 404 ms P-R-T Axes : 148 142 126 degrees QTc Int : 460 ms Poor data quality, interpretation may be adversely affected Suspect arm lead reversal, interpretation assumes no reversal Sinus rhythm Right axis deviation ST elevation in Anterior leads , repolarization vs. injury currrent Abnormal ECG When compared with ECG of 22-JAN-2023 16:18, Lead reversal now present Criteria for Anteroseptal infarct no longer present Confirmed by Hank Linder ([id number]) on 01/23/2023 3:48:23 PM Referred By: REFERRED SELF Confirmed By:Hank Linder
[2023-01-23 16:26] LABS: BUN Creatinine Ratio 12.8 (10-20); Calcium 8.7 mg/dl (8.6-10.3); Creatinine Clr Calc Pharmacy 109.1 ml/min; Est GFR (African American) 117.8 ml/min; Est GFR (Non-African American) 101.6 ml/min; Potassium 4.3 mmol/L (3.5-5.1)
[2023-01-23] MEDS: ENOXAPARIN INJ 40 MG/0.4 ML SYR SQ SCH (20:30)
[2023-01-23 20:54] LABS: BUN Creatinine Ratio 13.2 (10-20); Calcium 8.6 mg/dl (8.6-10.3); Creatinine Clr Calc Pharmacy 93.5 ml/min; Est GFR (African American) 109.6 ml/min; Est GFR (Non-African American) 94.5 ml/min; Potassium 4.5 mmol/L (3.5-5.1)
[2023-01-23] MEDS ORDERED: METOPROLOL SUCC 25MG EXT REL TAB PO SCH (21:00)
[2023-01-24] MEDS: GABAPENTIN 600 MG TAB PO SCH ×3 (01:43→20:56)
[2023-01-24 05:09] LABS: Hematocrit (blood only) 35.7 % (42.0-52.0); Hemoglobin 12.3 g/dl (14.0-18.0); Mean Corpuscular Hemoglobin 33.1 pg (25.0-34.0); Mean Corpuscular Hgb Conc 34.5 g/dL (32.0-36.0); Platelet Count 194 K/uL (130-400); RDW Coefficient of Variation 13.8 % (11.5-14.5); RDW Standard Deviation 49.2 fL (36.4-46.3); Red Blood Count 3.72 M/uL (4.70-6.10); White Blood Count 7.38 K/ul (4.8-10.8)
[2023-01-24 05:26] LABS: Calcium 8.8 mg/dl (8.6-10.3); Creatinine Clr Calc Pharmacy 141.8 ml/min; Est GFR (African American) 131.2 ml/min; Est GFR (Non-African American) 113.2 ml/min; Magnesium 1.9 mg/dl (1.7-2.4); Potassium 4.1 mmol/L (3.5-5.1)
[2023-01-24] MEDS: CYANOCOBALAMIN (B-12) 500 MCG TABLET PO SCH (08:24)
[2023-01-24] MEDS: FOLIC ACID 1 MG TAB PO SCH (08:24)
[2023-01-24] MEDS: THIAMINE HCL 100 MG TAB PO SCH (08:24)
[2023-01-24] MEDS: NICOTINE 21 MG/24 HR TDSY TD SCH (08:25)
[2023-01-24] MEDS ORDERED: amLODIPine BESYLATE 5 MG TAB PO SCH (09:00)
[2023-01-24] MEDS ORDERED: ERGOCALCIFEROL 50,000 UNITS 1250 MCG CAP PO SCH (09:00)
[2023-01-24] MEDS ORDERED: METOPROLOL SUCC 50MG EXT REL TAB PO SCH (09:00)
--- NOTE | 2023-01-24 10:13 | Cardiology Progress Note ---
Date of Service January 24, 2023 Assessment & Plan (1) Paresthesia of bilateral legs: (2) Alcohol abuse with withdrawal: (3) Hyponatremia: (4) Alcoholic fatty liver: (5) Sinus tachycardia: (6) Elevated troponin: Plan 57-year-old male admitted following a fall, with bilateral lower extremity paresthesias in the setting of chronic alcohol abuse since the age of 20, B12 deficiency, and remote history of lower back injury Elevated high-sensitivity troponin and abnormal EKG led to cardiology consultation with resting echocardiography revealing asymmetric left ventricular hypertrophy suggestive of hypertrophic cardiomyopathy. 1. Metoprolol succinate increased to 50 mg twice per day this admission 2. Amlodipine discontinued this admission. 3. Avoid dehydration 4. Avoid stimulants 5. Abstaining from alcohol encouraged 6. Importance of taking metoprolol discussed 7. Recommend outpatient cardiology follow-up, further evaluation of HOCM - Outpatient 14-day ZIO monitor, Cardiac MRI, and genetic testing. - Recommend utilization of bacterial endocarditis prophylaxis - Recommend screening all first degree relatives Admission and Anticipated Discharge Date Admission Date: January 22, 2023 Supervising Physician Co-Signing Physician Notes Patient seen and examined at the bedside. Admitted secondary to alcohol wit hdrawal and lower extremity weakness. Echocardiogram revealing asymmetric left ventricular hypertrophy and LVOT gradient suggestive of hypertrophic cardiomyopathy. Patient feeling well today. Denies chest pain or shortness of breath. Continues to voice concern regarding lower extremity weakness. No orthopnea, PND, or lower extremity edema. No events on telemetry. Cardiology consultation requested for evaluation of nonsustained ventricular tachycardia. Telemetry reviewed. There is no evidence of ventricular tachycardia. Echocardiogram demonstrating asymmetric left ventricular hypertrophy involving the septum with mitral valve Chencho and LVOT gradient. Findings suggest hypertrophic cardiomyopathy. Patient denies chest pain or unusual shortness of breath. No syncope or near syncope. Denies family history of cardiomyopathy or sudden cardiac . PE: VSS. Gen: NAD. AAO x3. Heart: Regular rhythm. normal S1S2. 2/6 MONA. Lungs: Clear bilateral. No rales, rhonchi, wheeze. Extremities: No edema. + LE Muscle wasting. A/P: Agree with above PA-C history, physical exam, assessment and plan with the following additions. Echocardiogram demonstrates asymmetric left ventricular hypertrophy suggestive of hypertrophic cardiomyopathy. Natural history and pathophysiology discussed. Continue Toprol-XL 50 mg twice daily. Amlodipine will remain on hold. Abstinence from alcohol strongly advised. Outpatient evaluation as noted above. No further input cardiac testing or intervention recommended at this time. Subjective Patient seen and examined. Chart, medications, and telemetry reviewed. No cardiac complaints. Patient specifically denies chest pain or discomfort, palpitations, shortness of breath, cough, chest congestion, orthopnea, PND, or lower extremity peripheral edema. Continuous telemetry monitoring reveals sinus with heart rates currently in the 80s, predominantly in the 70s and 80s over the last 24 hours. No VT. Resting echocardiography on January 23, 2023: EF 65 to 70%. Mild concentric LVH. Asymmetric LVH involving the basal septum with maximal diameter of 1.7 cm. Resting LVOT gradient 53 mmHg. Systolic anterior motion of the mitral valve. Mild mitral regurgitation. Mitral regurgitant jet is posteriorly directed. Review of Systems Review of Systems: See above. Ongoing bilateral lower extremity issues. Complete ROS is otherwise negative or noncontributory Physical Exam Physical Exam: General: Alert and oriented to person and place. NAD. HENT: Normocephalic. Atraumatic. Unequal pupils. Neck: No carotid bruits. No JVD. No HJR. Heart: Regular at 80 bpm. Grade I/ systolic murmur. No diastolic murmur. No rub. PMI is nondisplaced. Lungs: Clear to auscultation. No wheeze. Abdomen: +BS. Soft. Nontender. No masses or organomegaly. Extremities: Multiple excoriations and ecchymoses. No cellulitis. No clubbing. No cyanosis. No edema. Pulses: radial=2/4, posterior tibial=1/4. Results & Data Vital Signs (Past 12 Hours) Vital Signs Temp Pulse Resp BP Pulse Ox O2 Del Method 01/24/23 08:10 36.4 C L 78 18 112/74 98 Room Air 01/24/23 05:32 36.4 C L 72 18 106/68 97 Room Air 01/23/23 22:49 36.8 C 73 18 128/73 100 Room Air Laboratory Results CBC 01/24/23 Range/Units 04:25 WBC 7.38 (4.8-10.8) K/ul RBC 3.72 L (4.70-6.10) M/uL Hgb 12.3 L (14.0-18.0) g/dl Hct 35.7 L (42.0-52.0) % Plt Count 194 (130-400) K/uL Comprehensive Metabolic Panel 01/23/23 01/23/23 01/24/23 Range/Units 15:31 20:23 04:25 Sodium 128 L 129 L 130 L (136-145) mmol/L Potassium 4.3 D 4.5 4.1 (3.5-5.1) mmol/L Chloride 101 101 104 (98-107) mmol/L Carbon Dioxide 23 24 21 (21-32) mmol/L BUN 10 12 9 (6-23) mg/dl Creatinine 0.78 0.91 0.60 D (0.6-1.4) mg/dl Glucose 89 82 93 (70-99(Fasting)) mg/dl Calcium 8.7 8.6 8.8 (8.6-10.3) mg/dl Intake and Output 01/23/23 01/24/23 01/24/23 22:59 06:59 14:59 Intake Total 1840 / 2990 1150 / 2990 Output Total 2074 / 5 1100 / 3175 600 / 600 Balance -235 / -185 50 / -185 -600 / -600 Intake: IV 935 / 1935 1000 / 1935 Nss + 20Meq KCl 20 meq In 1,000 935 / 1935 1000 / 1935 ml @ 100 mls/hr IV .Q10H [facility] Rx#:[id number] Oral 905 / 1055 150 / 1055 Output: Urine 2074 / 3175 1100 / 3175 600 / 600 Other: Weight 72.7 kg Weight Measurement Method Built in [facility]
--- NOTE | 2023-01-24 16:17 | Hospitalist Progress Note ---
Date of Service January 24, 2023 Assessment & Plan (1) Alcohol abuse with withdrawal: (2) Weakness of both lower extremities: (3) Polyneuropathy: (4) Hypo-osmolar hyponatremia: (5) Elevated troponin: (6) HTN (hypertension): (7) NSVT (nonsustained ventricular tachycardia): (8) Alcoholic fatty liver: Plan Alcohol withdrawal H/O Alcohol withdrawal seizure Last Alcohol drink: 01/21/2023 @ approximately 2000 Continue alcohol withdrawal protocol with gabapentin Continue thiamine, folic acid Monitor for withdrawal Counseled to quit alcohol use Generalized weakness Ambulatory dysfunction Likely multifactorial:Moderate Lumbar stenosis Alcohol use, hyponatremia, peripheral neuropathy Elevated CK levels --CT Head:Head CT negative for acute intracranial abnormality. Mild chronic senescent changes as described above. --MRI Lumbar Spine 11/24/22:L4 compression fracture, likely subacute to acute. L1 and L2 compression fractures, likely subacute to chronic. Chronic L3 compression fracture with 70% loss of vertebral body height centrally. No retropulsion. Nondisplaced left sacral ala fracture, likely acute to subacute. Grade I anterolisthesis of L4 and L5 due to bilateral L5 for pars defects. Moderate central canal stenosis and severe bilateral neural foraminal stenosis at this level, as described above. Overall, moderate multilevel degenerative changes within the lumbar spine. Transitional vertebra at the lumbosacral junction. -Normal vitamin B12 levels Mildly elevated TSH, normal free T4 Fall precautions PT OT Consulted orthopedics Spine given persistent ambulatory dysfunction/lower extremity weakness May need EMG as outpatient Acute on chronic hyponatremia Hypotonic hyponatremia DD: Polydipsia, chronic low solute diet, alcohol use Sodium level 126>129>130 Given hypotension, received IV fluids Monitor sodium levels Appreciate nephrology input Continue fluid restriction Hypertrophic cardiomyopathy Chronic Troponin elevation Sinus tachycardia H/O NSVT --ECHO: EF 65 to 70%. Mild concentric LVH. Asymmetric left ventricular hypertrophy involving the basal septum with maximal diameter of 1.7 cm. Resting LVOT gradient 53 mmHg. Systolic anterior motion of the mitral valve. Mild mitral regurgitation. Mitral regurgitant jet is posteriorly directed. 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 Nocturnal hypoxia Continue supplemental oxygen at bedtime Hypertension BP low on presentation Continue metoprolol Amlodipine discontinued Monitor Hepatic Steatosis LFTs mild elevation Avoid hepatotoxic agents as able Monitor DVT Px: Lovenox SQ CODE STATUS Full Code Disposition PT/OT recommends Rehab Admission and Anticipated Discharge Date Admission Date: January 22, 2023 Subjective Patient is seen and examined at bedside Reports chronic right shoulder pain Persistent leg weakness/ambulatory dysfunction No new complaints Denies any chest pain, dyspnea, dizziness, nausea, vomiting, abdominal pain Discussed with Cardiology today Review of Systems Review of Systems: All systems reviewed & are unremarkable except as noted in Subjective Physical Exam Physical Exam: Physical Exam: Vitals signs as noted above General Appearance:Moderately built and nourished, no apparent distress Head: normocephalic, Atraumatic Eyes: normal inspection, EOMI Neck: supple, Trachea midline Respiratory/Chest: Normal breath sounds, CTA, No accessory muscle use Cardiovascular: S1, S2, + murmur Abdomen/GI:Soft, Non tender, Bowel sounds present Extremities/Musculoskeletal:normal inspection, no edema Neurologic/Psych:AAOX3, grossly no focal neurological deficits, + mild hearing impairment Skin: normal color, warm,+ excoriations, ecchymosis Results & Data Results & Data Vital Signs (Past 12 Hours) Vital Signs Temp Pulse Resp BP Pulse Ox O2 Del Method 01/24/23 15:42 36.5 C 59 L 18 114/76 94 Room Air 01/24/23 11:55 36.3 C L 71 19 121/83 100 Room Air 01/24/23 08:10 36.4 C L 78 18 112/74 98 Room Air 01/24/23 05:32 36.4 C L 72 18 106/68 97 Room Air Laboratory Results Short CBC 01/24/23 Range/Units 04:25 WBC 7.38 (4.8-10.8) K/ul Hgb 12.3 L (14.0-18.0) g/dl Hct 35.7 L (42.0-52.0) % Plt Count 194 (130-400) K/uL BMP 01/23/23 01/23/23 01/24/23 15:31 20:23 04:25 Sodium 128 L 129 L 130 L Potassium 4.3 D 4.5 4.1 Chloride 101 101 104 Carbon Dioxide 23 24 21 BUN 10 12 9 Creatinine 0.78 0.91 0.60 D Glucose 89 82 93 Calcium 8.7 8.6 8.8
--- NOTE | 2023-01-24 17:10 | Nephrology Progress Note ---
Date of Service January 24, 2023 Assessment & Plan (1) Labile blood pressure: Plan: currently receiving a 2L saline bolus >>monitor BP during/post resuscitation >f/u cardiology recs > on bid Toprol XL now and for OP f/u Plan Hypotonic hyponatremia Based on admission labs this is most recently due to polydipsia on a background of chronic hyponatremia likely from chronic low solute diet; however concern w/ abrupt drop in BP as well which takes clinical precedent. cont fluid limit 1.5 L daily Target sodium for tomorrow a.m. is 135 or less Maintain eukalemia -abstain from EtOH -will start salt tablets bid; would avoid lasix w/ possible HOCM to avoid potential functional LVOT obstruction Admission and Anticipated Discharge Date Admission Date: January 22, 2023 Subjective suspected new dx of HOCM. apart form ongoing weakness, denies pain, n/v, sob, edema. Review of Systems Review of Systems: All systems reviewed & are unremarkable except as noted in Subjective Physical Exam Constitutional: well developed, average body habitus and + disheveled; no acute distress Eyes: EOM intact bilaterally ENMT: Ears: no external ear abnormality Nose: no external nose abnormality Mouth: + dry oral mucous membranes Neck: no nuchal rigidity Respiratory: normal respiratory effort Auscultation: + diminished lung sounds Cardiovascular: RRR, no murmur, no edema Gastrointestinal (Abdomen): Inspection/Auscultation: normal bowel sounds Percussion/Palpation: abdomen soft; abdomen nontender Musculoskeletal: Extremities: strength 5/5 throughout Skin: no rashes, warm and dry Psychiatric: Orientation: alert and oriented x 3 Speech: normal rate/rhythm/volume of speech Affect: + blunted affect and + irritable affect Results & Data Vital Signs (Past 12 Hours) Vital Signs Temp Pulse Resp BP Pulse Ox O2 Del Method 01/24/23 15:42 36.5 C 59 L 18 114/76 94 Room Air 01/24/23 11:55 36.3 C L 71 19 121/83 100 Room Air 01/24/23 08:10 36.4 C L 78 18 112/74 98 Room Air 01/24/23 05:32 36.4 C L 72 18 106/68 97 Room Air Laboratory Results 01/24/23 04:25 01/24/23 04:25
[2023-01-24] MEDS: SODIUM CHLORIDE 1 GM TABLET PO SCH ×2 (17:55→20:56)
[2023-01-24] MEDS: ENOXAPARIN INJ 40 MG/0.4 ML SYR SQ SCH (20:56)
[2023-01-24] MEDS: METOPROLOL SUCC 50MG EXT REL TAB PO SCH (20:56)
[2023-01-25 05:23] LABS: Hematocrit (blood only) 37.2 % (42.0-52.0); Hemoglobin 12.8 g/dl (14.0-18.0); Mean Corpuscular Hemoglobin 32.9 pg (25.0-34.0); Mean Corpuscular Hgb Conc 34.4 g/dL (32.0-36.0); Mean Corpuscular Volume 95.6 fL (80.0-100.0); Mean Platelet Volume 9.2 fL (9.4-12.4); Platelet Count 245 K/uL (130-400); RDW Coefficient of Variation 13.5 % (11.5-14.5); Red Blood Count 3.89 M/uL (4.70-6.10); White Blood Count 8.73 K/ul (4.8-10.8)
[2023-01-25 05:35] LABS: BUN Creatinine Ratio 14.1 (10-20); Calcium 9.4 mg/dl (8.6-10.3); Est GFR (African American) 117.8 ml/min; Est GFR (Non-African American) 101.6 ml/min; Magnesium 1.8 mg/dl (1.7-2.4)
[2023-01-25] MEDS: NICOTINE 21 MG/24 HR TDSY TD SCH (08:50)
[2023-01-25] MEDS: SODIUM CHLORIDE 1 GM TABLET PO SCH ×2 (08:51→19:46)
[2023-01-25] MEDS: THIAMINE HCL 100 MG TAB PO SCH (08:51)
[2023-01-25] MEDS: METOPROLOL SUCC 50MG EXT REL TAB PO SCH ×2 (08:51→19:46)
[2023-01-25] MEDS: FOLIC ACID 1 MG TAB PO SCH (08:51)
--- NOTE | 2023-01-25 09:51 | Orthopedic Consultation ---
Date of Service January 25, 2023 History of Present Illness Reason for Consultation: . Numbness in lower extremities. Requesting Physician: . Attending Physician: Mahesh Farrell MD . 57-year-old male admitted to the hospital for, alcohol abuse with withdrawal, weakness lower extremities, polyneuropathy, hypo-osmolar hyponatremia, elevated troponin, HTN, MRI revealing lumbar stenosis, degenerative changes and evidence of compression fractures. In talking with the patient he relates he does not have any back pain, he is somewhat of a poor historian but cannot tell me exactly when he started developing numbness in the lower extremities with occasionally the legs giving out. Has had some recent occasions of falling, presented to the emergency room with these complaints and underwent lumbar MRI evaluation. Exam reveals the patient to have no pain lower lumbar spine to palpation. He has 5/5 strength for EHL, ankle plantar and dorsiflexion, knee flexion extension strength in hip flexors. No noted reflexes for knee or ankle. Negative straight leg raise. MRI OF THE LUMBAR SPINE WITHOUT CONTRAST CLINICAL HISTORY: Recent fall. Low back pain, bilateral leg numbness COMPARISON STUDY: No previous studies for comparison. FINDINGS: For purposes of numbering on this exam, the L5-S1 disc space is assigned to axial image 35 of 44. There is a transitional vertebra at the lumbosacral junction which is designated as S1 for purposes of numbering on this exam and there is a small disc space at the S1-S2 level.. There is 9 mm of anterolisthesis of L4 on L5 due to bilateral L4 pars defects. Note is made of a moderate compression fracture of L1. There is slight increased T2 signal along the superior endplate. There is a moderate compression fracture of the inferior endplate of L2 with minimal marrow edema. There is a moderate L3 compression fracture with 70% loss of vertebral body height centrally. There is no sig nificant marrow edema. There is moderate loss of height of the superior endplate of L4. No retropulsion related to compression fractures is noted. Discogenic changes at the L4-L5 level are present. Paravertebral soft tissues are unremarkable. The conus terminates at the upper L2 level. Incidental note is made of a fatty filum terminale. Presacral edema is present. Note is made of a partially visualized nondisplaced left sacral ala fracture. This is probably acute to subacute. L1-2: The central canal and neural foramen are patent. L2-3: There is mild disc space narrowing with disc bulge, facet arthrosis and ligamentous hypertrophy. The central canal and neural foramen are patent. L3-4: There is moderate facet arthrosis with ligamentous hypertrophy. There is mild disc bulge. There is mild narrowing of the central canal and lateral recesses. There is moderate bilateral neural foraminal stenosis. L4-5: Anterolisthesis is noted due to bilateral L5 pars defects. There is uncovering of the disc. Severe facet arthrosis is noted. There is moderate central canal stenosis. Patent AP diameter canal is 6.3 mm. There is moderate narrowing of the lateral recesses and severe narrowing of the bilateral neural foramen. L5-S1: There is mild facet arthrosis. There is mild disc space narrowing with disc bulge. Central canal is patent. There is mild narrowing of the lateral recesses and moderate narrowing of the right neural foramen. IMPRESSION: 1. L4 compression fracture, likely subacute to acute. L1 and L2 compression fractures, likely subacute to chronic. Chronic L3 compression fracture with 70% loss of vertebral body height centrally. No retropulsion. 2. Nondisplaced left sacral ala fracture, likely acute to subacute. 3. Grade I anterolisthesis of L4 and L5 due to bilateral L5 for pars defects. Moderate central canal stenosis and severe bilateral neural foraminal stenosis at this level, as described above. 4. Overall, moderate multilevel degenerative changes within the lumbar spine. 5. Transitional vertebra at the lumbosacral junction. Please see above numbering scheme of the lumbar spine. Impression: Numbness in lower extremities, findings as noted on MRI with evidence compression fractures most likely chronic due to lack of back pain, grade 1 anterolisthesis and notable disc degeneration at L4-5 with moderate canal stenosis. Plan: I talked with the patient about the findings relating that though he does have degenerative changes and some stenosis, most likely the numbness in his lower extremities is secondary to neuropathy. Recommendations would be for physical therapy with mobilization using a walker to prevent falls, no surgical intervention indicated at this time, would recommend EMG nerve conduction studies. Allergies Allergy/AdvReac Type Severity Reaction Status Date / Time No Known Allergies Allergy Unverified 01/22/23 19:26 Home Medications Medication Instructions Recorded Confirmed Type amlodipine 5 mg tablet (Norvasc) 0 mg PO QAM 01/22/23 01/22/23 Rx cyanocobalamin (vitamin B-12) 500 0 mcg PO QAM 01/22/23 01/22/23 History mcg tablet ergocalciferol (vitamin D2) 1,250 0 unit PO Q7D 01/22/23 01/22/23 History mcg (50,000 unit) capsule folic acid 1 mg tablet 0 mg PO QAM 01/22/23 01/22/23 History metoprolol succinate 25 mg 0 mg PO BID 01/22/23 01/22/23 History tablet,extended release 24 hr nicotine 21 mg/24 hr daily 0 mg transdermal Q24H 01/22/23 01/22/23 History transdermal patch (Nicoderm CQ) thiamine HCl (vitamin B1) 100 mg 0 mg PO QAM 01/22/23 01/22/23 History tablet Past Med/Surg History Medical History (Updated 01/23/23 @ 11:04 by Ashwini Landis MD, PhD) Alcohol abuse with withdrawal Chronic hyponatremia HTN (hypertension) Mood altered No pertinent family history Seizure Surgical History History of appendectomy Family History Other Cancer Hypertension Social History Smoking Status: Current some day smoker Tobacco Type: Cigarettes Cigarettes Per Day: "only when I'm drinking"; Second Hand Exposure: Yes; Do You Dip or Chew Tobacco: Yes; Tobacco Cessation Education Requested by Patient: No Hx Alcohol Use: Yes Alcohol type: beer Alcohol Intake Frequency: 2-3 x/Week Alcohol Intake Frequency Comment: Binge Drinker on the weekends Hx Substance Use: No Preferred Language: [place] Communication Ability: Effective Informatics Pharmacist Required: No Beliefs That Will Affect Care: None Current Living Situation: Alone Current Living Situation Comment: Patient stated that his sister is able to assist with needs at home Other Information That Helps Us Care for You: No Feels Safe at Home: Yes Safety Concerns: Feels Safe At This Time Assistive Devices: Walker Review of Systems All systems reviewed & are unremarkable except as noted in HPI & below. Physical Exam . Results & Data Results & Data Laboratory Results . Diagnostic Findings . PG Care Time/CCT Total # of Minutes Spent Total Time Spent with Patient: Total time spent is greater than 50% in coordination of care (as documented) at patient's floor/unit and/or counseling patient: Coding Level of Care Code 75858 IN/OBS CONSULT LVL 3,45M Diagnoses
[2023-01-25] MEDS: GABAPENTIN 600 MG TAB PO SCH (10:48)
[2023-01-25] MEDS: CYANOCOBALAMIN (B-12) 500 MCG TABLET PO SCH (10:49)
--- NOTE | 2023-01-25 13:28 | Nephrology Progress Note ---
Date of Service January 25, 2023 Assessment & Plan (1) Labile blood pressure: Plan: >f/u cardiology recs > on bid Toprol XL now and for OP f/u Plan Hypotonic hyponatremia Based on admission labs this is most recently due to polydipsia on a background of chronic hyponatremia likely from chronic low solute diet; however concern w/ abrupt drop in BP as well which takes clinical precedent. d/c fluid limit Maintain eukalemia -abstain from EtOH -Continue on start salt tablets bid; would avoid lasix w/ possible HOCM to avoid potential functional LVOT obstruction Admission and Anticipated Discharge Date Admission Date: January 22, 2023 Subjective suspected new dx of HOCM. apart form ongoing weakness, denies pain, n/v, sob, edema. Review of Systems Review of Systems: All systems reviewed & are unremarkable except as noted in HPI & below Results & Data Vital Signs (Past 12 Hours) Vital Signs Temp Pulse Resp BP Pulse Ox O2 Del Method 01/25/23 11:03 36.4 C L 67 18 98/57 L 98 Room Air 01/25/23 08:00 Room Air 01/25/23 07:15 36.7 C 63 18 117/77 100 Room Air 01/25/23 04:43 36.5 C 62 20 110/77 96 Room Air Laboratory Results 01/25/23 04:23 01/25/23 04:23
--- NOTE | 2023-01-25 16:37 | Hospitalist Progress Note ---
Date of Service January 25, 2023 Assessment & Plan (1) Alcohol abuse with withdrawal: (2) Weakness of both lower extremities: (3) Polyneuropathy: (4) Hypo-osmolar hyponatremia: (5) Elevated troponin: (6) HTN (hypertension): (7) NSVT (nonsustained ventricular tachycardia): (8) Alcoholic fatty liver: Plan Alcohol withdrawal H/O Alcohol withdrawal seizure Last Alcohol drink: 01/21/2023 @ approximately 2000 Continue alcohol withdrawal protocol with gabapentin Continue thiamine, folic acid Monitor for withdrawal Counseled to quit alcohol use Generalized weakness Ambulatory dysfunction Likely multifactorial:Moderate Lumbar stenosis Alcohol use, hyponatremia, peripheral neuropathy Elevated CK levels --CT Head:Head CT negative for acute intracranial abnormality. Mild chronic senescent changes as described above. --MRI Lumbar Spine 11/24/22:L4 compression fracture, likely subacute to acute. L1 and L2 compression fractures, likely subacute to chronic. Chronic L3 compression fracture with 70% loss of vertebral body height centrally. No retropulsion. Nondisplaced left sacral ala fracture, likely acute to subacute. Grade I anterolisthesis of L4 and L5 due to bilateral L5 for pars defects. Moderate central canal stenosis and severe bilateral neural foraminal stenosis at this level, as described above. Overall, moderate multilevel degenerative changes within the lumbar spine. Transitional vertebra at the lumbosacral junction. -Normal vitamin B12 levels Mildly elevated TSH, normal free T4 Fall precautions PT OT Appreciate orthopedics input : Recommends conservative management Advised EMG as outpatient Will benefit from rehab placement Acute on chronic hyponatremia Hypotonic hyponatremia DD: Polydipsia, chronic low solute diet, alcohol use Sodium level 126>129>130>131 Monitor sodium levels Appreciate nephrology input Fluid restriction discontinued Continue salt tablets Repeat urine sodium, osmolality tomorrow Hypertrophic cardiomyopathy Chronic Troponin elevation Sinus tachycardia H/O NSVT --ECHO: EF 65 to 70%. Mild concentric LVH. Asymmetric left ventricular hypertrophy involving the basal septum with maximal diameter of 1.7 cm. Resting LVOT gradient 53 mmHg. Systolic anterior motion of the mitral valve. Mild mitral regurgitation. Mitral regurgitant jet is posteriorly directed. Hold amlodipine for now Continue metoprolol as per cardiology: Uptitrated metoprolol succinate 50 mg BID Appreciate cardiology input Needs alcohol cessation Needs cardiac MRI and genetic testing as outpatient Needs 14-day environmental monitoring specialist on discharge Nocturnal hypoxia Continue supplemental oxygen at bedtime Hypertension BP low on presentation Continue metoprolol Amlodipine discontinued Monitor Hepatic Steatosis LFTs mild elevation Avoid hepatotoxic agents as able Monitor DVT Px: Lovenox SQ CODE STATUS Full Code Disposition PT/OT recommends Rehab Admission and Anticipated Discharge Date Admission Date: January 22, 2023 Subjective Patient is seen and examined at bedside Clinically no significant change from yesterday Reports persistent lower extremity weakness Discussed with nephrology today Denies any chest pain, dyspnea, dizziness, nausea, vomiting, abdominal pain Review of Systems Review of Systems: All systems reviewed & are unremarkable except as noted in Subjective Physical Exam Physical Exam: Physical Exam: Vitals signs as noted above General Appearance:Moderately built and nourished, no apparent distress Head: normocephalic, Atraumatic Eyes: normal inspection, EOMI Neck: supple, Trachea midline Respiratory/Chest: Normal breath sounds, CTA, No accessory muscle use Cardiovascular: S1, S2, + murmur Abdomen/GI:Soft, Non tender, Bowel sounds present Extremities/Musculoskeletal:normal inspection, no edema Neurologic/Psych:AAOX3, grossly no focal neurological deficits, + mild hearing impairment Skin: normal color, warm,+ excoriations, ecchymosis Results & Data Results & Data Vital Signs (Past 12 Hours) Vital Signs Temp Pulse Resp BP Pulse Ox O2 Del Method 01/25/23 15:45 36.8 C 68 20 100/68 98 Room Air 01/25/23 11:03 36.4 C L 67 18 98/57 L 98 Room Air 01/25/23 08:00 Room Air 01/25/23 07:15 36.7 C 63 18 117/77 100 Room Air 01/25/23 04:43 36.5 C 62 20 110/77 96 Room Air Laboratory Results Short CBC 01/25/23 Range/Units 04:23 WBC 8.73 (4.8-10.8) K/ul Hgb 12.8 L (14.0-18.0) g/dl Hct 37.2 L (42.0-52.0) % Plt Count 245 (130-400) K/uL BMP 01/25/23 04:23 Sodium 131 L Potassium 4.0 Chloride 99 Carbon Dioxide 26 BUN 11 Creatinine 0.78 Glucose 91 Calcium 9.4
[2023-01-25] MEDS: ENOXAPARIN INJ 40 MG/0.4 ML SYR SQ SCH (19:46)
[2023-01-26 05:42] LABS: BUN Creatinine Ratio 19.6 (10-20); Calcium 9.5 mg/dl (8.6-10.3); Creatinine Clr Calc Pharmacy 154.3 ml/min; Est GFR (Non-African American) 116.4 ml/min; Potassium 3.7 mmol/L (3.5-5.1)
[2023-01-26] MEDS ORDERED: GABAPENTIN 600 MG TAB PO SCH (07:00)
[2023-01-26] MEDS: METOPROLOL SUCC 50MG EXT REL TAB PO SCH ×2 (08:33→19:53)
[2023-01-26] MEDS: FOLIC ACID 1 MG TAB PO SCH (08:34)
[2023-01-26] MEDS: NICOTINE 21 MG/24 HR TDSY TD SCH (08:34)
[2023-01-26] MEDS: THIAMINE HCL 100 MG TAB PO SCH (08:34)
[2023-01-26] MEDS: SODIUM CHLORIDE 1 GM TABLET PO SCH ×2 (08:34→19:53)
[2023-01-26] MEDS: CYANOCOBALAMIN (B-12) 500 MCG TABLET PO SCH (08:35)
--- NOTE | 2023-01-26 16:24 | Hospitalist Progress Note ---
Date of Service January 26, 2023 Assessment & Plan (1) Alcohol abuse with withdrawal: (2) Weakness of both lower extremities: (3) Polyneuropathy: (4) Hypo-osmolar hyponatremia: (5) Elevated troponin: (6) HTN (hypertension): (7) NSVT (nonsustained ventricular tachycardia): (8) Alcoholic fatty liver: Plan Alcohol withdrawal H/O Alcohol withdrawal seizure Last Alcohol drink: 01/21/2023 @ approximately 2000 Continue alcohol withdrawal protocol with gabapentin Continue thiamine, folic acid Counseled to quit alcohol use Currently no signs of acute withdrawal Generalized weakness Ambulatory dysfunction Likely multifactorial:Moderate Lumbar stenosis Alcohol use, hyponatremia, peripheral neuropathy Elevated CK levels --CT Head:Head CT negative for acute intracranial abnormality. Mild chronic senescent changes as described above. --MRI Lumbar Spine 11/24/22:L4 compression fracture, likely subacute to acute. L1 and L2 compression fractures, likely subacute to chronic. Chronic L3 compression fracture with 70% loss of vertebral body height centrally. No retropulsion. Nondisplaced left sacral ala fracture, likely acute to subacute. Grade I anterolisthesis of L4 and L5 due to bilateral L5 for pars defects. Moderate central canal stenosis and severe bilateral neural foraminal stenosis at this level, as described above. Overall, moderate multilevel degenerative changes within the lumbar spine. Transitional vertebra at the lumbosacral junction. -Normal vitamin B12 levels Mildly elevated TSH, normal free T4 Fall precautions PT OT Appreciate orthopedics input : Recommends conservative management Advised EMG as outpatient Will benefit from rehab placement Advised to follow-up with neurology as outpatient Acute on chronic hyponatremia Hypotonic hyponatremia DD: Polydipsia, chronic low solute diet, alcohol use Sodium level 126>129>130>131 Monitor sodium levels Appreciate nephrology input Fluid restriction discontinued Continue salt tablets Monitor sodium levels Hypertrophic cardiomyopathy Chronic Troponin elevation Sinus tachycardia H/O NSVT --ECHO: EF 65 to 70%. Mild concentric LVH. Asymmetric left ventricular hypertrophy involving the basal septum with maximal diameter of 1.7 cm. Resting LVOT gradient 53 mmHg. Systolic anterior motion of the mitral valve. Mild mitral regurgitation. Mitral regurgitant jet is posteriorly directed. Hold amlodipine for now Continue metoprolol as per cardiology: Uptitrated metoprolol succinate 50 mg BID Appreciate cardiology input Needs alcohol cessation Needs cardiac MRI and genetic testing as outpatient Needs 14-day library monitor on discharge Nocturnal hypoxia Continue supplemental oxygen at bedtime Hypertension BP low Continue metoprolol Amlodipine discontinued Monitor Asymptomatic Hepatic Steatosis LFTs mild elevation Avoid hepatotoxic agents as able Monitor DVT Px: Lovenox SQ CODE STATUS Full Code Disposition PT/OT recommends Rehab Admission and Anticipated Discharge Date Admission Date: January 22, 2023 Subjective Patient is seen and examined at bedside No new complaints Complaints of leg weakness bilaterally Denies any chest pain, dyspnea, dizziness, nausea, vomiting, abdominal pain Sodium levels remain stable Review of Systems Review of Systems: All systems reviewed & are unremarkable except as noted in Subjective Physical Exam Physical Exam: Physical Exam: Vitals signs as noted above General Appearance:Moderately built and nourished, no apparent distress Head: normocephalic, Atraumatic Eyes: normal inspection, EOMI Neck: supple, Trachea midline Respiratory/Chest: Normal breath sounds, CTA, No accessory muscle use Cardiovascular: S1, S2, + murmur Abdomen/GI:Soft, Non tender, Bowel sounds present Extremities/Musculoskeletal:normal inspection, no edema Neurologic/Psych:AAOX3, grossly no focal neurological deficits, + mild hearing impairment Skin: normal color, warm,+ excoriations, ecchymosis Results & Data Results & Data Vital Signs (Past 12 Hours) Vital Signs Temp Pulse Pulse Resp BP Pulse Ox O2 Del Method 01/26/23 15:14 36.4 C L 62 19 103/66 100 Room Air 01/26/23 10:47 36.5 C 68 18 98/56 L 97 Room Air 01/26/23 07:00 61 01/26/23 07:17 36.4 C L 58 L 19 120/76 100 Room Air Laboratory Results [facility] 01/26/23 04:31 Sodium 131 L Potassium 3.7 Chloride 100 Carbon Dioxide 25 BUN 11 Creatinine 0.56 L Glucose 91 Calcium 9.5
[2023-01-26] MEDS: ENOXAPARIN INJ 40 MG/0.4 ML SYR SQ SCH (19:52)
[2023-01-27 06:31] LABS: BUN Creatinine Ratio 11.9 (10-20); Calcium 9.4 mg/dl (8.6-10.3); Creatinine Clr Calc Pharmacy 131.1 ml/min; Est GFR (African American) 125.4 ml/min; Est GFR (Non-African American) 108.2 ml/min; Potassium 3.7 mmol/L (3.5-5.1)
[2023-01-27] MEDS: METOPROLOL SUCC 50MG EXT REL TAB PO SCH ×2 (08:21→20:37)
[2023-01-27] MEDS: THIAMINE HCL 100 MG TAB PO SCH (08:25)
[2023-01-27] MEDS: SODIUM CHLORIDE 1 GM TABLET PO SCH (08:25)
[2023-01-27] MEDS: NICOTINE 21 MG/24 HR TDSY TD SCH (08:25)
[2023-01-27] MEDS: FOLIC ACID 1 MG TAB PO SCH (08:25)
[2023-01-27] MEDS: CYANOCOBALAMIN (B-12) 500 MCG TABLET PO SCH (09:49)
[2023-01-27] MEDS ORDERED: SODIUM CHLORIDE 0.9% 1,000 ML IV ONE (10:09)
[2023-01-27 17:18] LABS: Uric Acid, Random Urine 48 mg/dL
--- NOTE | 2023-01-27 18:16 | Hospitalist Progress Note ---
Date of Service January 27, 2023 Assessment & Plan (1) Alcohol abuse with withdrawal: (2) Weakness of both lower extremities: (3) Polyneuropathy: (4) Hypo-osmolar hyponatremia: (5) Elevated troponin: (6) HTN (hypertension): (7) NSVT (nonsustained ventricular tachycardia): (8) Alcoholic fatty liver: Plan Alcohol withdrawal H/O Alcohol withdrawal seizure Last Alcohol drink: 01/21/2023 @ approximately 2000 Continue alcohol withdrawal protocol with gabapentin Continue thiamine, folic acid Counseled to quit alcohol use Currently no signs of acute withdrawal Plan to discharge to rehab facility as able Generalized weakness Ambulatory dysfunction Likely multifactorial:Moderate Lumbar stenosis Alcohol use, hyponatremia, peripheral neuropathy Elevated CK levels --CT Head:Head CT negative for acute intracranial abnormality. Mild chronic senescent changes as described above. --MRI Lumbar Spine 11/24/22:L4 compression fracture, likely subacute to acute. L1 and L2 compression fractures, likely subacute to chronic. Chronic L3 compression fracture with 70% loss of vertebral body height centrally. No retropulsion. Nondisplaced left sacral ala fracture, likely acute to subacute. Grade I anterolisthesis of L4 and L5 due to bilateral L5 for pars defects. Moderate central canal stenosis and severe bilateral neural foraminal stenosis at this level, as described above. Overall, moderate multilevel degenerative changes within the lumbar spine. Transitional vertebra at the lumbosacral junction. -Normal vitamin B12 levels Mildly elevated TSH, normal free T4 Fall precautions PT OT Appreciate orthopedics input : Recommends conservative management Advised EMG as outpatient Advised to follow-up with neurology as outpatient Rehab as able Acute on chronic hyponatremia Hypotonic hyponatremia DD: Polydipsia, chronic low solute diet, alcohol use Sodium level 126>129>130>131>132 Monitor sodium levels Appreciate nephrology input Fluid restriction discontinued Monitor sodium levels Salt tablets discontinued Hypertrophic cardiomyopathy Chronic Troponin elevation Sinus tachycardia H/O NSVT --ECHO: EF 65 to 70%. Mild concentric LVH. Asymmetric left ventricular hypertrophy involving the basal septum with maximal diameter of 1.7 cm. Resting LVOT gradient 53 mmHg. Systolic anterior motion of the mitral valve. Mild mitral regurgitation. Mitral regurgitant jet is posteriorly directed. Hold amlodipine for now Continue metoprolol as per cardiology: Uptitrated metoprolol succinate 50 mg BID Appreciate cardiology input Needs alcohol cessation Needs cardiac MRI and genetic testing as outpatient Needs 14-day secured entrance monitor on discharge Nocturnal hypoxia Continue supplemental oxygen at bedtime Hypertension BP low Continue metoprolol Amlodipine discontinued Monitor Asymptomatic Hepatic Steatosis LFTs mild elevation Avoid hepatotoxic agents as able Monitor DVT Px: Lovenox SQ CODE STATUS Full Code Disposition PT/OT recommends Rehab Admission and Anticipated Discharge Date Admission Date: January 22, 2023 Subjective Patient is seen and examined at bedside Clinically no significant change from yesterday Reports persistent lower extremity weakness associated with ambulatory dysfunction No new complaints Denies any chest pain, dyspnea, dizziness, nausea, vomiting, abdominal pain Discussed with nephrology today Waiting for rehab placement Review of Systems Review of Systems: All systems reviewed & are unremarkable except as noted in Subjective Physical Exam Physical Exam: Physical Exam: Vitals signs as noted above General Appearance:Moderately built and nourished, no apparent distress Head: normocephalic, Atraumatic Eyes: normal inspection, EOMI Neck: supple, Trachea midline Respiratory/Chest: Normal breath sounds, CTA, No accessory muscle use Cardiovascular: S1, S2, + murmur Abdomen/GI:Soft, Non tender, Bowel sounds present Extremities/Musculoskeletal:normal inspection, no edema Neurologic/Psych:AAOX3, grossly no focal neurological deficits, + mild hearing impairment Skin: normal color, warm,+ excoriations, ecchymosis Results & Data Results & Data Vital Signs (Past 12 Hours) Vital Signs Temp Pulse Resp BP BP Pulse Ox O2 Del Method 01/27/23 15:45 36.9 C 68 18 118/81 100 Room Air 01/27/23 11:35 36.8 C 58 L 18 108/72 98 Room Air 01/27/23 07:28 36.6 C 65 18 91/48 L 99 Room Air Laboratory Results [facility] 01/27/23 05:50 Sodium 132 L Potassium 3.7 Chloride 102 Carbon Dioxide 24 BUN 8 Creatinine 0.67 Glucose 106 H Calcium 9.4
[2023-01-27] MEDS: ENOXAPARIN INJ 40 MG/0.4 ML SYR SQ SCH (20:37)
[2023-01-28 06:23] LABS: Hemoglobin 13.3 g/dl (14.0-18.0); Mean Corpuscular Hemoglobin 33.1 pg (25.0-34.0); Mean Corpuscular Volume 94.5 fL (80.0-100.0); Mean Platelet Volume 8.8 fL (9.4-12.4); Platelet Count 307 K/uL (130-400); RDW Coefficient of Variation 13.1 % (11.5-14.5); Red Blood Count 4.02 M/uL (4.70-6.10); White Blood Count 6.83 K/ul (4.8-10.8)
[2023-01-28 06:37] LABS: BUN Creatinine Ratio 12.9 (10-20); Calcium 9.4 mg/dl (8.6-10.3); Creatinine Clr Calc Pharmacy 141.7 ml/min; Est GFR (African American) 129.4 ml/min; Est GFR (Non-African American) 111.7 ml/min; Potassium 3.9 mmol/L (3.5-5.1)
[2023-01-28] MEDS: THIAMINE HCL 100 MG TAB PO SCH (08:12)
[2023-01-28] MEDS: METOPROLOL SUCC 50MG EXT REL TAB PO SCH ×2 (08:12→21:05)
[2023-01-28] MEDS: FOLIC ACID 1 MG TAB PO SCH (08:12)
[2023-01-28] MEDS: CYANOCOBALAMIN (B-12) 500 MCG TABLET PO SCH (08:13)
[2023-01-28] MEDS: NICOTINE 21 MG/24 HR TDSY TD SCH (10:00)
[2023-01-28] MEDS: GABAPENTIN 100 MG CAP PO SCH ×2 (13:27→21:04)
--- NOTE | 2023-01-28 15:26 | Hospitalist Progress Note ---
Date of Service January 28, 2023 Assessment & Plan (1) Alcohol abuse with withdrawal: (2) Weakness of both lower extremities: (3) Polyneuropathy: (4) Hypo-osmolar hyponatremia: (5) Elevated troponin: (6) HTN (hypertension): (7) NSVT (nonsustained ventricular tachycardia): (8) Alcoholic fatty liver: Plan Alcohol withdrawal H/O Alcohol withdrawal seizure Last Alcohol drink: 01/21/2023 @ approximately 2000 Continue alcohol withdrawal protocol with gabapentin Continue thiamine, folic acid Counseled to quit alcohol use Currently no signs of acute withdrawal Plan to discharge to rehab facility when accepted Generalized weakness Ambulatory dysfunction Likely multifactorial:Moderate Lumbar stenosis Alcohol use, hyponatremia, peripheral neuropathy Elevated CK levels --CT Head:Head CT negative for acute intracranial abnormality. Mild chronic senescent changes as described above. --MRI Lumbar Spine 11/24/22:L4 compression fracture, likely subacute to acute. L1 and L2 compression fractures, likely subacute to chronic. Chronic L3 compression fracture with 70% loss of vertebral body height centrally. No retropulsion. Nondisplaced left sacral ala fracture, likely acute to subacute. Grade I anterolisthesis of L4 and L5 due to bilateral L5 for pars defects. Moderate central canal stenosis and severe bilateral neural foraminal stenosis at this level, as described above. Overall, moderate multilevel degenerative changes within the lumbar spine. Transitional vertebra at the lumbosacral junction. -Normal vitamin B12 levels Mildly elevated TSH, normal free T4 Fall precautions PT OT Appreciate orthopedics input : Recommends conservative management Advised EMG as outpatient Advised to follow-up with neurology as outpatient Started on gabapentin to help with neuropathy Case management to help with discharge planning Acute on chronic hyponatremia Hypotonic hyponatremia DD: Polydipsia, chronic low solute diet, alcohol use Sodium level 126>129>130>131>132>133 Monitor sodium levels Appreciate nephrology input Fluid restriction discontinued Monitor sodium levels Salt tablets discontinued Hypertrophic cardiomyopathy Chronic Troponin elevation Sinus tachycardia H/O NSVT --ECHO: EF 65 to 70%. Mild concentric LVH. Asymmetric left ventricular hypertrophy involving the basal septum with maximal diameter of 1.7 cm. Resting LVOT gradient 53 mmHg. Systolic anterior motion of the mitral valve. Mild mitral regurgitation. Mitral regurgitant jet is posteriorly directed. Hold amlodipine for now Continue metoprolol as per cardiology: Uptitrated metoprolol succinate 50 mg BID Appreciate cardiology input Needs alcohol cessation Needs cardiac MRI and genetic testing as outpatient Needs 14-day white lead grinder on discharge Nocturnal hypoxia Continue supplemental oxygen at bedtime Hypertension Continue metoprolol Amlodipine discontinued BP Variable Hepatic Steatosis LFTs mild elevation Avoid hepatotoxic agents as able Monitor DVT Px: Lovenox SQ CODE STATUS Full Code Disposition Acute Rehab when accepted Admission and Anticipated Discharge Date Admission Date: January 22, 2023 Subjective Patient is seen and examined at bedside Reports lower extremity weakness/neuropathic pain Denies any chest pain, dyspnea, dizziness, nausea, vomiting, abdominal pain Waiting for rehab placement Review of Systems Review of Systems: All systems reviewed & are unremarkable except as noted in Subjective Physical Exam Physical Exam: Physical Exam: Vitals signs as noted above General Appearance:Moderately built and nourished, no apparent distress Head: normocephalic, Atraumatic Eyes: normal inspection, EOMI Neck: supple, Trachea midline Respiratory/Chest: Normal breath sounds, CTA, No accessory muscle use Cardiovascular: S1, S2, + murmur Abdomen/GI:Soft, Non tender, Bowel sounds present Extremities/Musculoskeletal:normal inspection, no edema Neurologic/Psych:AAOX3, grossly no focal neurological deficits, + mild hearing impairment Skin: normal color, warm,+ excoriations, ecchymosis Results & Data Results & Data Vital Signs (Past 12 Hours) Vital Signs Temp Pulse Pulse Resp BP Pulse Ox O2 Del Method 01/28/23 12:05 37.0 C 70 19 92/61 L 100 Room Air 01/28/23 09:10 62 01/28/23 08:01 36.9 C 62 17 108/63 99 Room Air Laboratory Results Short CBC 01/28/23 Range/Units 06:02 WBC 6.83 (4.8-10.8) K/ul Hgb 13.3 L (14.0-18.0) g/dl Hct 38.0 L (42.0-52.0) % Plt Count 307 (130-400) K/uL BMP 01/28/23 06:02 Sodium 133 L Potassium 3.9 Chloride 102 Carbon Dioxide 26 BUN 8 Creatinine 0.62 Glucose 93 Calcium 9.4
[2023-01-28] MEDS: ENOXAPARIN INJ 40 MG/0.4 ML SYR SQ SCH (21:04)
[2023-01-29 07:12] LABS: BUN Creatinine Ratio 13.7 (10-20); Calcium 9.5 mg/dl (8.6-10.3); Creatinine Clr Calc Pharmacy 120.2 ml/min; Est GFR (Non-African American) 104.4 ml/min; Potassium 3.8 mmol/L (3.5-5.1)
[2023-01-29] MEDS: FOLIC ACID 1 MG TAB PO SCH (08:23)
[2023-01-29] MEDS: CYANOCOBALAMIN (B-12) 500 MCG TABLET PO SCH (08:23)
[2023-01-29] MEDS: METOPROLOL SUCC 50MG EXT REL TAB PO SCH ×2 (08:23→20:21)
[2023-01-29] MEDS: GABAPENTIN 100 MG CAP PO SCH ×3 (08:23→20:21)
[2023-01-29] MEDS: NICOTINE 21 MG/24 HR TDSY TD SCH (08:24)
[2023-01-29] MEDS: THIAMINE HCL 100 MG TAB PO SCH (08:24)
--- NOTE | 2023-01-29 13:33 | Hospitalist Progress Note ---
Date of Service January 29, 2023 Assessment & Plan (1) Alcohol abuse with withdrawal: Present on Admission?: Yes (2) Weakness of both lower extremities: (3) Polyneuropathy: Present on Admission?: Yes (4) Hypo-osmolar hyponatremia: Present on Admission?: Yes (5) Elevated troponin: Present on Admission?: Yes (6) HTN (hypertension): (7) NSVT (nonsustained ventricular tachycardia): (8) Alcoholic fatty liver: Present on Admission?: Yes Plan Alcohol withdrawal H/O Alcohol withdrawal seizure Last Alcohol drink: 01/21/2023 @ approximately 1999 Continue thiamine, folic acid Counseled to quit alcohol use, patient verbalized understanding Currently no signs of acute withdrawal Plan to discharge to rehab facility when accepted Generalized weakness Ambulatory dysfunction Likely multifactorial:Moderate Lumbar stenosis Alcohol use, hyponatremia, peripheral neuropathy Elevated CK levels --CT Head:Head CT negative for acute intracranial abnormality. Mild chronic senescent changes as described above. --MRI Lumbar Spine 11/24/22:L4 compression fracture, likely subacute to acute. L1 and L2 compression fractures, likely subacute to chronic. Chronic L3 compression fracture with 70% loss of vertebral body height centrally. No retropulsion. Nondisplaced left sacral ala fracture, likely acute to subacute. Grade I anterolisthesis of L4 and L5 due to bilateral L5 for pars defects. Moderate central canal stenosis and severe bilateral neural foraminal stenosis at this level, as described above. Overall, moderate multilevel degenerative changes within the lumbar spine. Transitional vertebra at the lumbosacral junction. -Normal vitamin B12 levels, mildly elevated TSH, normal free T4 Fall precautions PT OT recommending rehab Appreciate orthopedics input : Recommends conservative management Advised EMG as outpatient Advised to follow-up with neurology as outpatient Continue gabapentin 100mg TID for neuropathy Case management to help with discharge planning Acute on chronic hyponatremia *improving Hypotonic hyponatremia DD: Polydipsia, chronic low solute diet, alcohol use Sodium level 126>129>130>131>132>133 Monitor sodium levels Appreciate nephrology input Fluid restriction and salt tablets discontinued Monitor sodium levels Hypertrophic cardiomyopathy Chronic Troponin elevation Sinus tachycardia H/O NSVT --ECHO: EF 65 to 70%. Mild concentric LVH. Asymmetric left ventricular hyper trophy involving the basal septum with maximal diameter of 1.7 cm. Resting LVOT gradient 53 mmHg. Systolic anterior motion of the mitral valve. Mild mitral regurgitation. Mitral regurgitant jet is posteriorly directed. Hold amlodipine for now Continue metoprolol as per cardiology: Uptitrated metoprolol succinate 50 mg BID Appreciate cardiology input [ ]Needs alcohol cessation [ ]Needs cardiac MRI and genetic testing as outpatient [ ]Needs 14-day phototypesetting equipment monitor on discharge Nocturnal hypoxia Continue supplemental oxygen at bedtime Hypertension Continue metoprolol BP Variable Hepatic Steatosis LFTs mild elevation *improved Avoid hepatotoxic agents as able Monitor DVT Px: Lovenox SQ CODE STATUS Full Code Disposition Acute Rehab when accepted Admission and Anticipated Discharge Date Admission Date: January 22, 2023 Subjective Patient is seen and examined at bedside Denies any new acute concerns, including chest pain, dyspnea, dizziness, nausea, vomiting, abdominal pain Patient eager for discharge, pending rehab placement Review of Systems Review of Systems: Constitutional: (-) fever/chills, (-) recent loss of weight, (-) appetite changes, (-) night sweats. Head: (-) headache, (-) dizziness. Eye: (-) blurring of vision, (-) double vision, (-) redness. Ear: (-) hearing loss, (-) discharge, (-) vertigo Nose: (-) discharge, (-) bleeding, (-) congestion, (-) post nasal drip. Throat: (-) sore throat, (-) hoarseness of voice, (-) odynophagia. Cardiovascular: (-) chest pain, (-) palpitations, (-) syncope, (-) orthopnea, (- ) PND, (-) leg swelling. Respiratory: (-) shortness of breath, (-) cough, (-) wheezing, (-) hemoptysis. Neuro: (+) weakness in extremities, (+) numbness, (+) tingling, (-) tremor. Gastrointestinal: (-) belly pain, (-) belly distension, (-) nausea, (-) vomiting, (-) diarrhea, (-) constipation, (-) hematemesis, (-) hematochezia, (- ) bowel incontinence Genitourinary: (-) hematuria, (-) dysuria, (-) polyuria, (-) hesitancy, (-) frequency, (-) urinary incontinence. Musculoskeletal: (-) myalgia, (-) arthralgia. Skin: (-) rashes. Endocrine: (-) heat/cold intolerance. Psychiatry: (-) depression, (-) hallucination. Physical Exam Physical Exam: GENERAL APPEARANCE: AxOx3, disheveled male, no acute distress. HEENT: NC, AT. MMM. EOMI, clear conjunctiva, oropharynx clear. NECK: Supple without lymphadenopathy. No stiffness or restricted ROM. HEART: tachycardic on examr LUNGS: CTAB, moving air well. No crackles or wheezes are heard. ABDOMEN: Soft, nontender, nondistended with good bowel sounds heard. BACK: No CVAT, no obvious deformity. EXTREMITIES: Without cyanosis, clubbing or edema. NEUROLOGICAL: Grossly nonfocal. Alert and oriented, moving all 4 extremities. CN appear grossly intact Skin: multiple areas of ecchymosis and skin tear on bilateral forearms Results & Data Results & Data Vital Signs (Past 12 Hours) Vital Signs Temp Pulse Resp BP BP Pulse Ox O2 Del Method 01/29/23 10:58 36.8 C 60 19 104/68 100 Room Air 01/29/23 07:03 36.6 C 59 L 18 129/82 100 Room Air 01/29/23 02:34 36.7 C 69 18 113/76 98 Room Air Laboratory Results Laboratory Results [facility] 01/29/23 05:31 Sodium 134 L Potassium 3.8 Chloride 101 Carbon Dioxide 26 BUN 10 Creatinine 0.73 Glucose 83 Calcium 9.5 Diagnostic Findings No new imaging to review Medications Administered Home Medications Medication Instructions Recorded Confirmed Last Taken amlodipine 5 mg tablet (Norvasc) 0 mg PO QAM 01/22/23 01/22/23 Unknown cyanocobalamin (vitamin B-12) 500 0 mcg PO QAM 01/22/23 01/22/23 Unknown mcg tablet ergocalciferol (vitamin D2) 1,250 0 unit PO Q7D 01/22/23 01/22/23 Unknown mcg (50,000 unit) capsule folic acid 1 mg tablet 0 mg PO QAM 01/22/23 01/22/23 Unknown metoprolol succinate 25 mg 0 mg PO BID 01/22/23 01/22/23 Unknown tablet,extended release 24 hr nicotine 21 mg/24 hr daily 0 mg transdermal Q24H 01/22/23 01/22/23 Unknown transdermal patch (Nicoderm CQ) thiamine HCl (vitamin B1) 100 mg 0 mg PO QAM 01/22/23 01/22/23 Unknown tablet Active Medications Generic Name Dose Route Start Last Admin Trade Name Carolyn PRN Reason Stop Dose Admin Cyanocobalamin 500 mcg 01/28/23 09:00 01/29/23 08:23 Cyanocobalamin (B-12) 500 Mcg Tablet PO 02/22/23 08:59 500 mcg QAM CHELSEY Administration Enoxaparin Sodium 40 mg 01/22/23 22:30 01/28/23 21:04 Enoxaparin Inj 40 Mg/0.4 Ml Syr SQ 02/21/23 22:29 40 mg HS CHELSEY Administration Ergocalciferol 50,000 units 01/24/23 09:00 01/24/23 08:24 Ergocalciferol 50,000 Units 1250 Mcg Cap PO 02/23/23 08:59 50,000 units Q7D CHELSEY Administration Folic Acid 1 mg 01/23/23 09:00 01/29/23 08:23 Folic Acid 1 Mg Tab PO 02/22/23 08:59 1 mg QAM CHELSEY Administration Gabapentin 100 mg 01/28/23 14:00 01/29/23 08:23 Gabapentin 100 Mg Cap PO 02/27/23 13:59 100 mg TID CHELSEY Administration Metoprolol Succinate 50 mg 01/24/23 21:00 01/29/23 08:23 Metoprolol Succ 50mg Ext Rel Tab PO 02/23/23 20:59 50 mg BID CHELSEY Administration Miscellaneous 1 each 01/23/23 08:59 01/29/23 08:23 Remove Nicoderm Patch N/A 02/22/23 08:58 Not Given DAILY@[id number] CHELSEY Nicotine 21 mg 01/22/23 22:30 01/29/23 08:24 Nicotine 21 Mg/24 Hr Tdsy TD 02/21/23 22:29 Not Given DAILY CHELSEY Thiamine HCl 100 mg 01/23/23 09:00 01/29/23 08:24 Thiamine Hcl 100 Mg Tab PO 02/22/23 08:59 100 mg QAM CHELSEY Administration (6) HTN (hypertension) Hypertension type: primary hypertension Qualified Code(s): I10 - Essential (primary) hypertension
[2023-01-29] MEDS: ENOXAPARIN INJ 40 MG/0.4 ML SYR SQ SCH (20:20)
[2023-01-30 06:37] LABS: Hematocrit (blood only) 38.9 % (42.0-52.0); Hemoglobin 13.4 g/dl (14.0-18.0); Mean Corpuscular Hemoglobin 32.9 pg (25.0-34.0); Mean Corpuscular Hgb Conc 34.4 g/dL (32.0-36.0); Mean Corpuscular Volume 95.6 fL (80.0-100.0); Mean Platelet Volume 9.1 fL (9.4-12.4); Platelet Count 412 K/uL (130-400); RDW Coefficient of Variation 13.2 % (11.5-14.5); RDW Standard Deviation 46.4 fL (36.4-46.3); Red Blood Count 4.07 M/uL (4.70-6.10); White Blood Count 7.38 K/ul (4.8-10.8)
[2023-01-30 07:06] LABS: BUN Creatinine Ratio 14.7 (10-20); Calcium 9.6 mg/dl (8.6-10.3); Est GFR (African American) 124.6 ml/min; Est GFR (Non-African American) 107.5 ml/min; Magnesium 1.7 mg/dl (1.7-2.4); Potassium 4.1 mmol/L (3.5-5.1)
[2023-01-30] MEDS: FOLIC ACID 1 MG TAB PO SCH (08:38)
[2023-01-30] MEDS: THIAMINE HCL 100 MG TAB PO SCH (08:38)
[2023-01-30] MEDS: CYANOCOBALAMIN (B-12) 500 MCG TABLET PO SCH (08:38)
[2023-01-30] MEDS: METOPROLOL SUCC 50MG EXT REL TAB PO SCH (08:39)
[2023-01-30] MEDS: NICOTINE 21 MG/24 HR TDSY TD SCH (08:39)
[2023-01-30] MEDS: GABAPENTIN 100 MG CAP PO SCH ×2 (08:39→13:04)
--- NOTE | 2023-01-30 12:15 | Discharge Summary ---
Discharge Summary Date of Service January 30, 2023 Notes For Next Care Provider Patient will need to follow up with Cardiology for further evaluation of NSVT and HOCM, as well as the following cardiology recommendations: -OP 14-day ZIO monitor, Cardiac MRI, and genetic testing Consider prophylactic bacterial endocarditis prophylaxis when indicated Screen first degree relatives For neuropathy: -Consider EMG as OP and Neurology Follow UP Medication Changes From Visit -Discontinued historic amlodipine prescription -Completed Gabapentin taper for alcohol withdrawal -Started Gabapentin 100mg TID -Started Metoprolol Succinate 50mg BID NSVT/HOCM Admission HPI Per Admitting Provider Chief Complaint: Mr. Harley is a 57 year old gentleman with past medical history remarkable for alcohol abuse with prior withdrawal seizures, polyneuropathy thought to be 2/2 chronic etoh use and b12 deficiency, hypertension, NSVT, recent deconditioning requiring IP PT, who presented to [facility] ED due to bilateral lower extremity weakness. Patient states that he was in his usual state of health until suddenly on 01/21 around 1999, he felt both his legs just give out on him. He states he was on the floor in his room until sometime this afternoon, when he was able to get his sister to come and assist him, ultimately prompting his visit to the Ed. Patient occasionally tangential, but further questioning revealed that he has been drinking daily since end of October, since he was discharged from a rehab facility after a long admission complicated by 2 withdrawal seizures. Patient states after leaving rehab, he was unable to get any of his medications for blood pressure or vitamins. Patient mentions using a walker, but then states that he doesn't use a walker any longer--it was not clear the timeline as to when he decided to stop using walker given he would/could not give a direct answer. When asked about his alcohol intake, he does state his last drink was approximately ~1999, the time he felt his legs give out. Patient declined to give direct answer regarding volume of alcohol, digressing to his prior employment with [id number] At the time of exam, patient states that he doesn't have any symptoms and he feels alright overall. He denies chest pain, lightheadedness, palpitations, syncopal episodes, or other neurologic symptoms. In the ED, vitals were notable for BP in the 170s, HR up to 100s, and O2 sat in high 90s on room air Imaging revealed mild ischemic microangiopathy, but no other acute mass effect Labs were notable for hyponatremia to 127, serum osom 264, CK to 984, trop 85.2, tsh 4.7/t4 0.89, urine osmo 217, utox negative EKG revealed tachycardia, high peaked t waves--but upon review of prior strips seem to be stable ED interventions: ativan x1, chlordiazepoxide x1, banana bag Patient to be admitted to [facility] for further evaluation and management of bilateral extremity weakness and alcohol withdrawal Admission Exam Per Admitting Provider GENERAL APPEARANCE: AxOx3, disheveled male, no acute distress. HEENT: NC, AT. MMM. EOMI, clear conjunctiva, oropharynx clear. NECK: Supple without lymphadenopathy. No stiffness or restricted ROM. HEART: tachycardic on examr LUNGS: CTAB, moving air well. No crackles or wheezes are heard. ABDOMEN: Soft, nontender, nondistended with good bowel sounds heard. BACK: No CVAT, no obvious deformity. EXTREMITIES: Without cyanosis, clubbing or edema. NEUROLOGICAL: Grossly nonfocal. Alert and oriented, moving all 4 extremities. CN appear grossly intact. patient declined to ambulate. FROM intact, strength 5/5 in upper/lower proximal and distal muscle groups, sensation intact Skin: multiple areas of ecchymosis and skin tear on bilateral forearms Principal Dx & Hospital Course #1 = Principal Diagnosis (1) Alcohol abuse with withdrawal: (2) Weakness of both lower extremities: (3) Polyneuropathy: (4) Hypo-osmolar hyponatremia: (5) NSVT (nonsustained ventricular tachycardia): (6) HOCM (hypertrophic obstructive cardiomyopathy): (7) Alcoholic fatty liver: Plan Mr. Harley is a 57 year old gentleman admitted on 01/22/2023 for evaluation of bilateral lower extremity weakness resulting in a fall. In the ED, patient was notable hypertensive and tachycardic. Patient was admitted to telemetry and started on gabapentin taper. Initially, given history of hypertension and NSVT, patient was started on previously prescribed metoprolol and amlodipine; however, telemetry revealed ongoing NSVT, in addition to abnormal EKG and +troponin, prompting Cardiology consult. Blood pressure improved significantly with metoprolol, prompting discontinuation of amlodipine. ECHO was performed and revealed LVOT gradient and concentric hypertrophy concerning for HOCM. Metorpolol was increased and patient counseled on improtance of continued use of metoprolol, as well as discharge discussion for follow up with Cardiology. Nephrology consulted for hypotonic hyponatremia, which is chronic in nature, after attempting fluid restriction and salt tabs, there was no significant improvement--ultimately remaining stable throughout admission. Ortho evaluated patient given history of stenosis, who did not feel it was a significant contributor to ongoing weakness and neuropathy. Ultimately, PT/OT felt patient was a candidate for inpatient rehab, for which patient was accepted to transfer. #Alcohol withdrawal #H/O Alcohol withdrawal seizure Last Alcohol drink: 01/21/2023 @ approximately 2000 No witnessed seizure during this admission Continue thiamine, folic acid, B12 supplementation Counseled to continue abstinence of alcohol, patient verbalized understanding #Generalized weakness #Ambulatory dysfunction Likely multifactorial:Moderate Lumbar stenosis Alcohol use, hyponatremia, peripheral neuropathy --CT Head:Head CT negative for acute intracranial abnormality. Mild chronic senescent changes as described above. --MRI Lumbar Spine 11/24/22:L4 compression fracture, likely subacute to acute. L1 and L2 compression fractures, likely subacute to chronic. Chronic L3 compression fracture with 70% loss of vertebral body height centrally. No retropulsion. Nondisplaced left sacral ala fracture, likely acute to subacute. Grade I anterolisthesis of L4 and L5 due to bilateral L5 for pars defects. Moderate central canal stenosis and severe bilateral neural foraminal stenosis at this level, as described above. Overall, moderate multilevel degenerative changes within the lumbar spine. Transitional vertebra at the lumbosacral junction. -Normal vitamin B12 levels, mildly elevated TSH, normal free T4 Appreciate orthopedics input : conservative management Advised EMG as outpatient and follow-up with neurology Continue gabapentin 100mg TID for neuropathy #Acute on chronic hyponatremia *stable Hypotonic hyponatremia DD: Polydipsia, chronic low solute diet, alcohol use Sodium level 126>129>130>131>132>133 Monitor sodium levels Nephrology: trialed salt tabs, water restriction with no improvement. Likely secondary to poor solute intake, encourage nutrient dense diet #Hypertrophic cardiomyopathy #Chronic Troponin elevation #Sinus tachycardia #NSVT --ECHO: EF 65 to 70%. Mild concentric LVH. Asymmetric left ventricular hypertrophy involving the basal septum with maximal diameter of 1.7 cm. Resting LVOT gradient 53 mmHg. Systolic anterior motion of the mitral valve. Mild mitral regurgitation. Mitral regurgitant jet is posteriorly directed. Continue metoprolol as per cardiology: Uptitrated metoprolol succinate 50 mg BID [ ]Needs to continue alcohol cessation [ ]Needs cardiac MRI and genetic testing as outpatient, Cardiology follow up [ ]Needs 14-day monitoring engineer #Nocturnal hypoxia Continue supplemental oxygen at bedtime Consider OP Sleep study #Liable blood pressure #Hypertension Continue metoprolol BP Variable #Hepatic Steatosis LFTs mild elevation *improved Avoid hepatotoxic agents as able Dispo to Inpatient Rehab Discharge Exam GENERAL APPEARANCE: AxOx3, conversational, no acute distress. HEENT: NC, AT. MMM. EOMI, clear conjunctiva, oropharynx clear. NECK: Supple without lymphadenopathy. No stiffness or restricted ROM. HEART: RRR, no murmur/gallop LUNGS: CTAB, moving air well. No crackles or wheezes are heard. ABDOMEN: Soft, nontender, nondistended with good bowel sounds heard. BACK: No CVAT, no obvious deformity. EXTREMITIES: Without cyanosis, clubbing or edema. NEUROLOGICAL: Grossly nonfocal. Alert and oriented, moving all 4 extremities. CN appear grossly intact. patient declined to ambulate. FROM intact, strength 5/5 in upper/lower proximal and distal muscle groups, sensation intact Skin:areas of healing skin tears on arms present on admission, no signs of infection Updated Medication List Medication Instructions Recorded Confirmed Type cyanocobalamin (vitamin B-12) 500 500 mcg PO QAM 30 days #30 tabs 01/30/23 Rx mcg tablet ergocalciferol (vitamin D2) 1,250 50,000 unit PO Q7D #5 caps 01/30/23 Rx mcg (50,000 unit) capsule folic acid 1 mg tablet 1 mg PO QAM 30 days #30 tabs 01/30/23 Rx gabapentin 100 mg capsule 100 mg PO TID 90 days #270 caps 01/30/23 Rx metoprolol succinate 50 mg 50 mg PO BID 30 days #60 tabs 01/30/23 Rx tablet,extended release 24 hr nicotine 21 mg/24 hr daily 21 mg transdermal DAILY 14 days 01/30/23 Rx transdermal patch (Nicoderm CQ) #14 ea thiamine HCl (vitamin B1) 100 mg 100 mg PO QAM 30 days #30 tabs 01/30/23 Rx tablet Hospital Stay Data Consultations 01/22/23 18:03 ED Decision to Admit Stat 01/23/23 08:36 Consult Cardiology Routine 01/23/23 09:21 Consult Nephrology Routine 01/24/23 16:06 Consult Orthopedic Surgery Routine Procedures Performed None Diagnostic Imagining Performed 01/22/23 18:03 CT head/brain wo con Stat Pending Results Patient Have Any Pending Studies at Discharge: No Discharge Instructions Given to Patient (Per Discharging Provider) You were admitted to [facility] due to weakness in lower extremities and falls. These are the following issues addressed during your stay: -Alcohol withdrawal: We treated potential withdrawal with a gabapentin taper. You did not experience any seizures during this admission due to withdrawal. Please consider continued abstinence, you have done a wonderful job thus koko. -Weakness: You have multiple reasons contributing to weakness. Imaging did not reveal any signs of stroke. You do show signs of polyneuropathy, which means nerves are likely damaged, often after ongoing alcohol use. We will send you home with gabapentin 100mg three times a day to help with the nerve discomfort from tingling, as well as multiple vitamins to help prevent further damage and deficiences. -NSVT: This means in short bursts, your heart rate went extremely fast. For this, you are on metoprolol succinate 50mg BID to prevent the fast beats from evolving into something more dangerous. However, this still requires further evaluation. Upon discharge, please ensure follow up with Cardiology for a special heart monitor and to discuss special imaging of your heart. Total Time Total Time Spent Total Time Spent (In Minutes): Time spent evaluating patient, direct bedside care, chart review, placing discharge orders, interpretation of diagnostic studies, discussion with consultants, patient, and family members, as well as other required patient management activities is 45 minutes.
== END 2023-01-30 14:00 | DRG 309 ==
LOC: ED 15:15 → SUATTDRO 18:59 → 4W 18:59